=== PATIENT | male | born 1940 | race African-American/Black ===

== ENCOUNTER 2018-07-12 15:42 | Inpatient (IN) | payer MEDICARE, OTHER ==
[~2018-07-12] VITALS: Ht 185.4 cm; Wt 118.5 kg
[~2018-07-12 15:42] MED LIST: UNOBMED
--- NOTE | 2018-07-12 16:12 | Emergency Room Report ---
History of Present Illness General Chief Complaint: Multiple Trauma/Fall Source: Patient Present Illness HPI Patient presents after several falling episodes. This been going on for last 2 weeks. He hurt his left knee 2 weeks ago and has been wearing a brace but is had difficulty ambulating. The pain is severe in the knee. The last few days he's fallen and hit his head. He denies loss of consciousness. Generalized weakness. The patient had his thyroid removed 2 months ago. He says that he is taking thyroid medication. The patient's been incontinent of urine recently. He also complains of dysuria. He denies any fevers or chills. There's no chest pain, cough, shortness of breath, nausea or vomiting. The patient's been constipated and having difficulty moving his bowels. Allergies: Coded Allergies: No Known Allergies (Unverified , 07/12/18) Patient History Past Medical History: see triage record Social History: Denies: smoking Social History Narrative at home with sons Reviewed Nursing Documentation: PMH: Agreed; PSxH: Agreed Nursing Documentation-PMH Hx Cardiac Problems: Yes - THYROID REMOVAL 2YRS AGO Hx Hypertension: Yes Hx Diabetes: Yes Review of Systems All Other Systems: negative except mentioned in HPI Physical Exam Vital Signs Date Time Temp Pulse Resp B/P (MAP) Pulse Ox O2 Delivery O2 Flow Rate FiO2 07/12/18 15:38 98.8 90 18 156/76 99 Room Air Sp02 EP Interpretation: reviewed, normal General Appearance: no apparent distress, GCS 15, other - failry ill Head: normocephalic Eyes: bilateral eye normal inspection, bilateral eye PERRL ENT: moist mucus membranes Neck: supple, other - cannot feel thyroid Respiratory: lungs clear, normal breath sounds Cardiovascular #1: regular rate, rhythm Cardiovascular #2: 2+ radial (R) Gastrointestinal: normal inspection, normal bowel sounds, non tender, no mass, non-distended Musculoskeletal: back normal, swelling - tenderness L knee with small effusion and decreased ROM - TTP Neurologic: alert, oriented x3, DTRs symmetric, sensory intact, motor weakness - generalized Psychiatric: depressed affect Skin: normal inspection, warm/dry Medical Decision Making Diagnostic Impression: Primary Impression: Multiple injuries due to trauma Additional Impressions: Tibial plateau fracture Qualified Codes: S82.142A - Displaced bicondylar fracture of left tibia, initial encounter for closed fracture Hypothyroidism Qualified Codes: E03.9 - Hypothyroidism, unspecified Myxedema UTI (urinary tract infection) Qualified Codes: N39.0 - Urinary tract infection, site not specified Urinary incontinence Qualified Codes: R32 - Unspecified urinary incontinence ER Course Patient with multiple falls with generalized weakness and incontinence. DDX: bleed, UTI/sepsis, electrolyte abnormality, hypothyroidism, ID amongst others. In addition, c/o L knee pain from fall 2 weeks ago. DDx fx, contusion, sprain. CT head, knee x-rays, EKG and labs indicated. Treated with analgesic and gentle hydration. EKG without injury. CXR no infiltrates. Knee with tibial plateau fx. CBC elevated WBC. CMP essentially normal. Elevated CK. TFTs demonstrate hypothyroidism. UA pyuria. Antibiotics begun. Cortisol and levothyroxin given. Discussed findings with patient and family. Knee immobilizer applied by techs. Position excellent with improvement of sy and normal neurovasc as checked by me. Patient admitted to medical floor - Dr. Morgan. Orthopedic surgeon consulted. Laboratory Tests Test 07/12/18 15:51 07/12/18 16:47 07/12/18 17:41 07/12/18 17:49 Troponin I 0.000 ng/mL (0.000-0.056) White Blood Count 15.0 K/UL (4.8-10.8) H Red Blood Count 4.85 M/UL (4.70-6.10) Hemoglobin 14.0 G/DL (14.2-18.0) L Hematocrit 42.3 % (42.0-52.0) Mean Corpuscular Volume 87 FL (80-99) Mean Corpuscular Hemoglobin 28.8 PG (27.0-31.0) Mean Corpuscular Hemoglobin Concent 33.1 G/DL (32.0-36.0) Red Cell Distribution Width 11.9 % (11.6-14.8) Platelet Count 297 K/UL (150-450) Mean Platelet Volume 7.3 FL (6.5-10.1) Neutrophils (%) (Auto) 79.2 % (45.0-75.0) H Lymphocytes (%) (Auto) 14.5 % (20.0-45.0) L Monocytes (%) (Auto) 4.2 % (1.0-10.0) Eosinophils (%) (Auto) 0.9 % (0.0-3.0) Basophils (%) (Auto) 1.2 % (0.0-2.0) Erythrocyte Sedimentation Rate 67 MM/HR (0-20) H Prothrombin Time 11.3 SEC (9.30-11.50) Prothrombin Time INR 1.1 (0.9-1.1) PTT 24 SEC (23-33) Urine Color Yellow Urine Appearance Slightly cloudy Urine pH 5 (4.5-8.0) Urine Specific [place] 1.020 (1.005-1.035) Urine Protein 2+ (NEGATIVE) H Urine Glucose (UA) Negative (NEGATIVE) Urine Ketones Negative (NEGATIVE) Urine Blood 3+ (NEGATIVE) H Urine Nitrite Negative (NEGATIVE) Urine Bilirubin Negative (NEGATIVE) Urine Urobilinogen 1 MG/DL (0.0-1.0) H Urine Leukocyte Esterase 3+ (NEGATIVE) H Urine RBC 15-20 /HPF (0 - 0) H Urine WBC 40-60 /HPF (0 - 0) H Urine Squamous Epithelial Cells None /LPF (NONE/OCC) Urine Amorphous Sediment Moderate /LPF (NONE) H Urine Bacteria Moderate /HPF (NONE) H Urine Yeast Few /HPF (NONE) H Urine Opiates Screen Positive (NEGATIVE) H Urine Barbiturates Screen Negative (NEGATIVE) Phencyclidine (PCP) Screen Negative (NEGATIVE) Urine Amphetamines Screen Negative (NEGATIVE) Urine Benzodiazepines Screen Negative (NEGATIVE) Urine Cocaine Screen Negative (NEGATIVE) Urine Marijuana (THC) Screen Negative (NEGATIVE) Sodium Level 138 MMOL/L (136-145) Potassium Level 3.9 MMOL/L (3.5-5.1) Chloride Level 101 MMOL/L (98-107) Carbon Dioxide Level 26 MMOL/L (21-32) Anion Gap 12 mmol/L (5-15) Blood Urea Nitrogen 21 mg/dL (7-18) H Creatinine 1.1 MG/DL (0.55-1.30) Estimate Glomerular Filtration Rate mL/min (>60) Glucose Level 178 MG/DL (74-106) H Uric Acid 5.6 MG/DL (2.6-7.2) Calcium Level 9.3 MG/DL (8.5-10.1) Total Bilirubin 0.8 MG/DL (0.2-1.0) Aspartate Amino Transferase (AST) 37 U/L (15-37) Alanine Aminotransferase (ALT) 21 U/L (12-78) Alkaline Phosphatase 82 U/L (46-116) Total Creatine Kinase 595 U/L (26-308) H Pro-B-Type Natriuretic Peptide 193 pg/mL (0-125) H Total Protein 8.4 G/DL (6.4-8.2) H Albumin 2.7 G/DL (3.4-5.0) L Globulin 5.7 g/dL Albumin/Globulin Ratio 0.5 (1.0-2.7) L Lipase 113 U/L (73-393) Thyroid Stimulating Hormone (TSH) 9.675 uiU/mL (0.358-3.740) Free Thyroxine 0.49 NG/DL (0.76-1.46) L Free Triiodothyronine 0.8 pg/mL (2.3-4.2) L EKG Diagnostic Results Rate: normal Rhythm: NSR ST Segments: no acute changes Rhythm Strip Diag. Results EP Interpretation: yes Rhythm: NSR, no PVC's, no ectopy Chest X-Ray Diagnostic Results Chest X-Ray Diagnostic Results : Chest X-Ray Ordered: Yes # of Views/Limited/Complete: 1 View Indication: Other EP Interpretation: Yes Interpretation: no consolidation, no effusion, no pneumothorax, other - inc cor Impression: Other Electronically Signed by: Electronically signed by Bartolo Waggoner MD Other X-Ray Diagnostic Results Other X-Ray Diagnostic Results : X-Ray ordered: L knee # of Views/Limited Vs Complete: 3 View Indication: Pain Interpretation: no dislocation, no soft tissue swelling, other - djd and tibial plateau fx Impression: Other Electronically Signed by: Electronically signed by Bartolo Waggoner MD CT/MRI/US Diagnostic Results CT/MRI/US Diagnostic Results : Imaging Test Ordered: head Impression chronic age related changes Status: improved Disposition: ADMITTED INPATIENT Condition: Serious Bartolo Waggoner MD Jul 12, 2018 16:12
[2018-07-12] MEDS ORDERED: Morphine Sulfate 4mg/ml Inj (IV/IM USE ONLY) IVP ONE (16:15)
[2018-07-12 16:41] VITALS: BP 113/89
[2018-07-12 17:10] LABS: BASOPHILS % (AUTO) 1.2 % (0.0-2.0); EOSINOPHILS % (AUTO) 0.9 % (0.0-3.0); HEMATOCRIT 42.3 % (42.0-52.0); LYMPHOCYTES % (AUTO) 14.5 % (20.0-45.0); MEAN CORPUSCULAR VOLUME 87 FL (80-99); MONOCYTES % (AUTO) 4.2 % (1.0-10.0); NEUTROPHILS % (AUTO) 79.2 % (45.0-75.0); PLATELET COUNT 297 K/UL (150-450); RED BLOOD COUNT 4.85 M/UL (4.70-6.10); RED CELL DISTRIBUTION WIDTH 11.9 % (11.6-14.8)
[2018-07-12 17:15] LABS: INR 1.1 (0.9-1.1)
--- NOTE | 2018-07-12 17:20 | Diagnostic Imaging Report ---
Indication: Head pain after several falling episodes Technique: spiral acquisitions obtained through the brain. Angled axial and coronal 5 x 5 mm slices were reconstructed. No IV contrast utilized. Radiation dose was minimized using automated exposure control Total dose length product 1513.32 mGycm. CTDIvol(s) 70.38 mGy Comparison: none FINDINGS: No acute hemorrhage or edema. No mass effect or midline shift. There is age-related enlargement of the ventricles and extra axial CSF spaces. There is periventricular deep white matter ischemic change. Normal gustafson-white differentiation. There is evidence of prior bilateral cataract surgery. Visualized sinuses are unremarkable. Intact calvarium. IMPRESSION: Chronic and age-related changes. Negative for acute intracranial bleed or mass effect The CT scanner at [facility] is accredited by the [employer] and the scans are performed using protocols designed to limit radiation exposure to as low as reasonably achievable to attain images of sufficient resolution adequate for diagnostic evaluation
--- NOTE | 2018-07-12 17:46 | Diagnostic Imaging Report ---
Indication: Chest pain Technique: One view of the chest Comparison: none Findings: Body habitus limits evaluation. There is equivocal minimal interstitial congestion. The pleural spaces are clear. The heart is borderline enlarged. There are degenerative changes of the stomach thoracic spine Impression: Cardiomegaly with equivocal minimal interstitial congestion. Correlate with clinical findings
--- NOTE | 2018-07-12 17:49 | Diagnostic Imaging Report ---
Indication: Pain, trauma Technique: 3 views of the left knee Comparison: None Findings: Lucency seen through the medial tibial plateau, probably not a fracture but this cannot be completely ruled out. There is mild degenerative joint space narrowing of the lateral compartment, considerable degenerative remodeling of both joint compartments as well as of the patellofemoral joint compartment. There is a small suprapatellar effusion. Traction osteophytes are seen in the patella. Impression: Doubt but cannot completely exclude medial tibial plateau fracture. No acute bony trauma otherwise Joint effusion Findings discussed by phone with Dr. Waggoner in the emergency room at the time of interpretation Marked degenerative change, as described Findings discussed by phone with Dr. Waggoner in the emergency room at the time of interpretation
[2018-07-12 18:07] LABS: ANION GAP 12 mmol/L (5-15); BLOOD UREA NITROGEN 21 mg/dL (7-18); CALCIUM 9.3 MG/DL (8.5-10.1); CARBON DIOXIDE 26 MMOL/L (21-32); CHLORIDE 101 MMOL/L (98-107); CREATININE 1.1 MG/DL (0.55-1.30); POTASSIUM 3.9 MMOL/L (3.5-5.1); SODIUM 138 MMOL/L (136-145)
[2018-07-12 18:08] LABS: APPEARANCE,URINE SLIGHTLY CLOUDY; BILIRUBIN, URINE NEGATIVE (NEGATIVE); GLUCOSE, URINE (UA) NEGATIVE (NEGATIVE); KETONES,URINE NEGATIVE (NEGATIVE); LEUKOCYTE ESTERASE ,URINE 3+ (NEGATIVE); NITRITE,URINE NEGATIVE (NEGATIVE); PH,URINE 5 (4.5-8.0); PROTEIN,URINE 2+ (NEGATIVE); UROBILINOGEN,URINE 1 MG/DL (0.0-1.0)
[2018-07-12 18:09] LABS: COLOR,URINE YELLOW
[2018-07-12 18:23] LABS: ALANINE AMINOTRANSFERASE 21 U/L (12-78); ALBUMIN 2.7 G/DL (3.4-5.0); ALBUMIN/GLOBULIN RATIO 0.5 (1.0-2.7); ALKALINE PHOSPHATASE 82 U/L (46-116); ASPARTATE AMINO TRANSFERASE 37 U/L (15-37); BILIRUBIN,TOTAL 0.8 MG/DL (0.2-1.0); CREATINE KINASE 595 U/L (26-308)
[2018-07-12] MEDS ORDERED: cefTRIAXone 1 GM in D5W 55 ML IVPB ONE (18:30)
[2018-07-12] MEDS ORDERED: Levothyroxine 25mcg tab ORAL STA (19:23)
[2018-07-12] MEDS ORDERED: Hydrocortisone 100mg Inj IV ONE (19:30)
[2018-07-12 20:33] VITALS: BP 137/62
[2018-07-12] MEDS ORDERED: Norco 5mg/325mg tab ORAL PRN ×2 (22:00)
[2018-07-13] VITALS: BP 148/79
[2018-07-13 04:00] VITALS: BP 140/77
[2018-07-13] MEDS: NovoLOG Insulin Flexpen SUBQ SCH ×4 (06:48→21:00)
[2018-07-13 08:00] VITALS: BP 140/83
[2018-07-13] MEDS: Pantoprazole Inj IVP SCH (09:30)
[2018-07-13 12:00] VITALS: BP 142/64
--- NOTE | 2018-07-13 15:01 | Cardiology Report ---
APPROVED REPORT EKG Measurement Heart [id number] [place] [id number] Normal sinus rhythm Left axis deviation Right bundle branch block Abnormal ECG
--- NOTE | 2018-07-13 15:04 | Cardiology Report ---
APPROVED REPORT EKG Measurement Heart [id number] [place] [id number] Normal sinus rhythm Left axis deviation Right bundle branch block Cannot rule out Inferior infarct, age undetermined Abnormal ECG
[2018-07-13 15:44] VITALS: BP 139/76
--- NOTE | 2018-07-13 17:32 | History and Physical Report ---
DATE OF ADMISSION: 07/12/2018 REASON FOR ADMISSION: Status post fall, fracture. HISTORY: This is a 78-year-old male, who has had multiple falls in the past two weeks. The patient did have an injury to his left knee, was wearing a brace, difficulty ambulating. The patient had another fall and he suffered a left tibial plateau fracture, the patient admitted. The patient notes some urinary incontinence. The patient overall was stable, alert, oriented, and comfortable in bed. PAST MEDICAL HISTORY: Notable for thyroid surgery, hypertension, diabetes, multiple falls, now with tibial plateau fracture. PHYSICAL EXAMINATION: GENERAL: A well-developed male, comfortable at present, no significant distress. VITAL SIGNS: The patient's vital signs reviewed and otherwise stable. Blood pressure 140/83, pulse 74, respiratory rate 19, and temperature 98.5. HEENT: Negative. NECK: Supple. LUNGS: Fairly clear and symmetric. CARDIAC: Normal S1 and S2. Regular rate and rhythm. ABDOMEN: Overall soft, nontender, nondistended. EXTREMITIES: No cyanosis or clubbing. The patient's left knee with brace in place. LABORATORY AND DIAGNOSTIC DATA: The laboratory data otherwise reviewed. X-rays revealed possible medial tibial plateau fracture of the left leg. Laboratory data notable for white cell count of 15, BUN 21. Liver enzymes are slightly elevated. Thyroid function is somewhat abnormal. IMPRESSION: 1. Status post fall, possible tibial plateau fracture, left knee injury. 2. Evidence of elevated CK with mild azotemia. 3. Protein-calorie malnutrition. 4. Hypothyroidism. RECOMMENDATIONS: Supportive care. Resume home medications. Pain control. Physical therapy evaluation. Consider empiric antibiotics. Hydration and IV fluids. Follow up laboratories and recommend further follow up CT and await further orthopedic evaluation and recommendations for discharge planning. Tu Morgan M.D. DR: KINA JOB#: [id number] CC: NARGIS
[2018-07-13 20:00] VITALS: BP 122/64
[2018-07-13] MEDS: Zolpidem 5mg tab ORAL PRN (20:58)
[2018-07-13] MEDS: Milk of Magnesia 30ml Ud ORAL PRN (20:58)
[2018-07-14] VITALS (7 sets, daily range): BP systolic 132–162; BP diastolic 71–87
[2018-07-14] MEDS: NovoLOG Insulin Flexpen SUBQ SCH ×4 (06:55→21:12)
[2018-07-14] MEDS: Milk of Magnesia 30ml Ud ORAL PRN (08:21)
[2018-07-14] MEDS: Pantoprazole Inj IVP SCH (08:21)
--- NOTE | 2018-07-14 10:11 | General Progress Note ---
Assessment/Plan Assessment/Plan IMPRESSION: 1. Status post fall, possible tibial plateau fracture, left knee injury. 2. Evidence of elevated CK with mild azotemia. 3. Protein-calorie malnutrition. 4. Hypothyroidism. PLAN await ortho PT pending heparin sq bid maintain meds and pain control impression, plan, and exam edited and reviewed in detail care discussed with RN Subjective Allergies: Coded Allergies: No Known Allergies (Unverified , 07/12/18) Subjective comfortable d/w ortho Objective Last 24 Hour Vital Signs Date Time Temp Pulse Resp B/P (MAP) Pulse Ox O2 Delivery O2 Flow Rate FiO2 07/14/18 09:00 Room Air 07/14/18 08:00 98.8 84 18 146/77 (100) 100 07/14/18 04:43 98.6 76 18 146/78 (100) 96 07/13/18 21:00 Room Air 07/13/18 20:00 98.9 73 18 122/64 (83) 96 07/13/18 15:44 98.3 78 19 139/76 (97) 97 07/13/18 12:00 98.2 71 20 142/64 (90) 98 Intake and Output 07/13/18 07/14/18 19:00 07:00 Intake Total 1256 ml 1210 ml Output Total 400 ml 1700 ml Balance 856 ml -490 ml Intake Oral 456 ml 360 ml IV Total 800 ml 850 ml Output Urine Total 400 ml 1700 ml # Voids 2 Labs Test 07/12/18 15:51 07/12/18 16:47 07/12/18 17:41 07/12/18 17:49 Troponin I 0.000 ng/mL (0.000-0.056) White Blood Count 15.0 K/UL (4.8-10.8) Red Blood Count 4.85 M/UL (4.70-6.10) Hemoglobin 14.0 G/DL (14.2-18.0) Hematocrit 42.3 % (42.0-52.0) Mean Corpuscular Volume 87 FL (80-99) Mean Corpuscular Hemoglobin 28.8 PG (27.0-31.0) Mean Corpuscular Hemoglobin Concent 33.1 G/DL (32.0-36.0) Red Cell Distribution Width 11.9 % (11.6-14.8) Platelet Count 297 K/UL (150-450) Mean Platelet Volume 7.3 FL (6.5-10.1) Neutrophils (%) (Auto) 79.2 % (45.0-75.0) Lymphocytes (%) (Auto) 14.5 % (20.0-45.0) Monocytes (%) (Auto) 4.2 % (1.0-10.0) Eosinophils (%) (Auto) 0.9 % (0.0-3.0) Basophils (%) (Auto) 1.2 % (0.0-2.0) Erythrocyte Sedimentation Rate 67 MM/HR (0-20) Prothrombin Time 11.3 SEC (9.30-11.50) Prothromb Time International Ratio 1.1 (0.9-1.1) Activated Partial Thromboplast Time 24 SEC (23-33) Urine Color Yellow Urine Appearance Slightly cloudy Urine pH 5 (4.5-8.0) Urine Specific [place] 1.020 (1.005-1.035) Urine Protein 2+ (NEGATIVE) Urine Glucose (UA) Negative (NEGATIVE) Urine Ketones Negative (NEGATIVE) Urine Blood 3+ (NEGATIVE) Urine Nitrite Negative (NEGATIVE) Urine Bilirubin Negative (NEGATIVE) Urine Urobilinogen 1 MG/DL (0.0-1.0) Urine Leukocyte Esterase 3+ (NEGATIVE) Urine RBC 15-20 /HPF (0 - 0) Urine WBC 40-60 /HPF (0 - 0) Urine Squamous Epithelial Cells None /LPF (NONE/OCC) Urine Amorphous Sediment Moderate /LPF (NONE) Urine Bacteria Moderate /HPF (NONE) Urine Yeast Few /HPF (NONE) Urine Opiates Screen Positive (NEGATIVE) Urine Barbiturates Screen Negative (NEGATIVE) Phencyclidine (PCP) Screen Negative (NEGATIVE) Urine Amphetamines Screen Negative (NEGATIVE) Urine Benzodiazepines Screen Negative (NEGATIVE) Urine Cocaine Screen Negative (NEGATIVE) Urine Marijuana (THC) Screen Negative (NEGATIVE) Sodium Level 138 MMOL/L (136-145) Potassium Level 3.9 MMOL/L (3.5-5.1) Chloride Level 101 MMOL/L (98-107) Carbon Dioxide Level 26 MMOL/L (21-32) Anion Gap 12 mmol/L (5-15) Blood Urea Nitrogen 21 mg/dL (7-18) Creatinine 1.1 MG/DL (0.55-1.30) Estimat Glomerular Filtration Rate mL/min (>60) Glucose Level 178 MG/DL (74-106) Uric Acid 5.6 MG/DL (2.6-7.2) Calcium Level 9.3 MG/DL (8.5-10.1) Total Bilirubin 0.8 MG/DL (0.2-1.0) Aspartate Amino Transf (AST/SGOT) 37 U/L (15-37) Alanine Aminotransferase (ALT/SGPT) 21 U/L (12-78) Alkaline Phosphatase 82 U/L (46-116) Total Creatine Kinase 595 U/L (26-308) Pro-B-Type Natriuretic Peptide 193 pg/mL (0-125) Total Protein 8.4 G/DL (6.4-8.2) Albumin 2.7 G/DL (3.4-5.0) Globulin 5.7 g/dL Albumin/Globulin Ratio 0.5 (1.0-2.7) Lipase 113 U/L (73-393) Thyroid Stimulating Hormone (TSH) 9.675 uiU/mL (0.358-3.740) Free Thyroxine 0.49 NG/DL (0.76-1.46) Free Triiodothyronine 0.8 pg/mL (2.3-4.2) Test 07/13/18 06:17 Hemoglobin A1c 7.4 % (4.3-6.0) Height (Feet): 6 Height (Inches): 1.00 Weight (Pounds): 261 Objective GENERAL: A well-developed male, comfortable at present, no significant distress. HEENT: Negative. NECK: Supple. LUNGS: Fairly clear and symmetric. CARDIAC: Normal S1 and S2. Regular rate and rhythm. ABDOMEN: Overall soft, nontender, nondistended. EXTREMITIES: No cyanosis or clubbing. The patient's left knee with brace in place. Tu Morgan MD Jul 14, 2018 10:11
[2018-07-14] MEDS ORDERED: 1/2 NS 1000ml IV ONE ×2 (16:06→16:56)
[2018-07-14] MEDS: Heparin 5000 units/ml inj SUBQ SCH (21:02)
--- NOTE | 2018-07-14 21:30 | Consultation ---
DATE OF CONSULTATION: 07/14/2018 ORTHOPEDIC CONSULTATION CONSULTING PHYSICIAN: Bartolo Mcclendon M.D. REQUESTING PHYSICIAN: Tu Morgan M.D. DIAGNOSIS: Left proximal tibial plateau nondisplaced fracture. HISTORY: A 78-year-old gentleman with multiple falls, who has had multiple injuries to both knees. He recently slipped and fell and was found to have a small nondisplaced medial proximal tibial plateau fracture. He was admitted for multiple medical reasons. PAST MEDICAL HISTORY: Significant for hypertension, diabetes, hypothyroidism, status post thyroidectomy, and multiple falls. REVIEW OF SYSTEMS: A 12-point review of systems is negative. PHYSICAL EXAMINATION: He is well appearing, in no distress. Left lower extremity is in an immobilizer. Distal neurovascular examination to gross movements intact. Immobilizer was loosened and all compartments were palpably soft. There are no open wounds. DIAGNOSTIC DATA: Radiographs of left tibia reveal a small nondisplaced medial tibial plateau fracture with no significant compression or depression. ASSESSMENT AND PLAN: This is a 78-year-old gentleman with a left proximal tibia fracture. I have recommended nonoperative treatment. Strict nonweightbearing is recommended. He should be in an immobilizer for comfort and protection, which can be removed for hygiene purposes and to sit for rest comfortably. DVT prophylaxis should be maintained while he is bed ridden, if it is for any prolonged period of time. He is welcome to follow up in the office. Thank you for the opportunity to consult. Bartolo Mcclendon M.D. DR: LUCERO JOB#: [id number] CC:
[2018-07-15] VITALS: BP 143/78
[2018-07-15] MEDS: Zolpidem 5mg tab ORAL PRN (00:22)
[2018-07-15 04:00] VITALS: BP 158/86
[2018-07-15] MEDS: NovoLOG Insulin Flexpen SUBQ SCH ×3 (05:37→16:35)
[2018-07-15] MEDS ORDERED: Levothyroxine 125mcg tab ORAL SCH (06:30)
[2018-07-15 08:00] VITALS: BP 134/58
--- NOTE | 2018-07-15 08:31 | General Progress Note ---
Assessment/Plan Assessment/Plan IMPRESSION: 1. Status post fall, possible tibial plateau fracture, left knee injury. 2. Evidence of elevated CK with mild azotemia. 3. Protein-calorie malnutrition. 4. Hypothyroidism. PLAN NWB status PT heparin sq bid maintain meds and pain control will need rehab impression, plan, and exam edited and reviewed in detail care discussed with RN Subjective Allergies: Coded Allergies: No Known Allergies (Unverified , 07/12/18) Subjective comfortable ortho noted-no surgery and nonweightbearing status Objective Last 24 Hour Vital Signs Date Time Temp Pulse Resp B/P (MAP) Pulse Ox O2 Delivery O2 Flow Rate FiO2 07/15/18 04:00 99.3 75 18 158/86 (110) 97 07/15/18 00:00 99.3 70 18 143/78 (99) 96 07/14/18 21:00 Room Air 07/14/18 20:00 98.4 72 18 156/84 (108) 97 07/14/18 17:32 99.2 07/14/18 17:09 99.8 07/14/18 16:11 100.3 07/14/18 16:00 100.3 85 18 132/87 (102) 96 07/14/18 15:30 100.5 07/14/18 12:00 99.3 76 18 146/71 (96) 100 07/14/18 10:17 Room Air 07/14/18 09:00 Room Air Intake and Output 07/14/18 07/15/18 19:00 07:00 Intake Total 1520 ml 1400 ml Output Total 2300 ml 1450 ml Balance -780 ml -50 ml Intake Oral 300 ml 300 ml IV Total 1100 ml 1100 ml Other 120 ml Output Urine Total 2300 ml 1450 ml # Bowel Movements 3 Height (Feet): 6 Height (Inches): 1.00 Weight (Pounds): 261 Objective GENERAL: A well-developed male, comfortable at present, no significant distress. HEENT: Negative. NECK: Supple. LUNGS: Fairly clear and symmetric. CARDIAC: Normal S1 and S2. Regular rate and rhythm. ABDOMEN: Overall soft, nontender, nondistended. EXTREMITIES: No cyanosis or clubbing. The patient's left knee with brace in place. Tu Morgan MD Jul 15, 2018 08:31
[2018-07-15] MEDS: Pantoprazole Inj IVP SCH ×2 (09:00→09:16)
[2018-07-15] MEDS: Heparin 5000 units/ml inj SUBQ SCH (09:17)
[2018-07-15 12:00] VITALS: BP 132/80
[2018-07-15] MEDS ORDERED: ZOLPIDEM TARTRAT5 MG ORAL (14:26)
[2018-07-15] MEDS ORDERED: LEVOTHYROXINE125 MCG ORAL (14:30)
[2018-07-15] MEDS ORDERED: MILK OF MA400 MG/51 ORAL (14:30)
[2018-07-15] MEDS ORDERED: NORCO 5-325 TA1 EACH ORAL ×2 (14:38→14:39)
[2018-07-15] MEDS ORDERED: HEPARIN SO5000 UNIT2 SUBQ (14:40)
[2018-07-15] MEDS ORDERED: MYLANTA II30 ML PO (14:42)
[2018-07-15] MEDS ORDERED: ACETAMINOPHEN325 M1 ORAL (14:43)
[2018-07-15] MEDS ORDERED: NOVOLOG100 UNIT/3 SUBQ (14:45)
[2018-07-15 16:00] VITALS: BP 137/84
[2018-07-15] MEDS ORDERED: 1/2 NS 1000ml IV ONE (16:09)
[2018-07-15 20:00] VITALS: BP 158/83
--- NOTE | 2018-07-16 09:49 | Discharge Summary ---
Discharge Summary Discharge Summary _ DATE OF ADMISSION: 07/12/2018 DATE OF DISCHARGE: 07/15/2018 CONSULTANTS: Dr. Bartolo Mcclendon [facility] COURSE: Patient is a 78-year-old male, who had multiple falls in the past 2 weeks. Patient had an injury to his left knee, and was wearing a brace and had difficulty ambulating. The patient had another fall. He has medical history significant for hypertension, diabetes, prior thyroid surgery and now with multiple falls and tibial plateau fracture. On evaluation at ED, blood work showed elevated WBC to 15. Hemoglobin and hematocrit are stable. CMP was essentially normal. He had elevated CK. Urinalysis showed 2+ protein, 3+ leukocyte esterase, 15-20 RBC and 40-60 WBC. Urine toxicology was positive for opiates. Thyroid was elevated to 9. He had a chest x-ray that showed cardiomegaly with equivocal minimal interstitial congestion. Head CT with chronic age-related changes no acute intracranial bleed or mass effect. He was started on antibiotics and was given cortisol and levothyroxine. Left knee x-ray showed possible medial tibial plateau fracture. He was placed on knee immobilizer. He was then admitted for evaluation of knee pain. He was given IV hydration. He was given pain management. He was placed on subcutaneous injections twice a day. Orthopedic surgeon was consulted. Distal neurovascular examination showed gross movements intact. Radiographs were reviewed. Patient has a left tibial small nondisplaced medial tibial plateau fracture with no significant compression or decompression. He was recommended nonoperative treatment and was advised strict nonweightbearing. He was advised to be in a immobilizer for comfort and protection, can be removed for hygiene purposes and to sit for rest comfortably. He was advised to follow-up as outpatient. He was given PT and OT. He was eventually discharged to a rehabilitation center. FINAL DIAGNOSES: Status post fall with left tibial non-displaced fracture Evidence of CK with mild azotemia Protein calorie malnutrition Hypothyroidism DISPOSITION: Patient was discharged to Rehabilitation Center on . DISCHARGE MEDICATIONS: Refer to Discharge Medication List. I have been assigned to dictate discharge summary on this account, and I was not involved in the patient's management. Yolis Rosales NP Jul 16, 2018 09:49
== END 2018-07-15 20:25 | disposition short-term general hospital (02) | DRG 563 ==
LOC: EDBD 15:42 → EMR 16:14 → 3E 16:58 → EDBEDREQ 17:18
DX: S82.145A Nondisplaced bicondylar fracture of left tibia, initial encounter for closed fracture (principal); E46 Unspecified protein-calorie malnutrition; W01.0XXA Fall on same level from slipping, tripping and stumbling without subsequent striking against object, initial encounter; R29.6 Repeated falls; S89.92XD Unspecified injury of left lower leg, subsequent encounter; I10 Essential (primary) hypertension; E11.9 Type 2 diabetes mellitus without complications; E89.0 Postprocedural hypothyroidism
CPT/HCPCS: 36415; 70450; 71045; 80053; 80307; 81003; 82550; 82962; 83036; 83690; 83880; 84439; 84443; 84481; 84484; 84550; 85025; 85610; 85651; 85730; 87086; 87181; 93005; 96361; 96365; 96375; 99285; J1815; J2405

== ENCOUNTER 2020-06-18 11:46 | Inpatient (IN) | payer MEDICARE, OTHER ==
[~2020-06-18] VITALS: Ht 184.9 cm; Wt 108.0 kg
[~2020-06-18 11:46] MED LIST changes: +ACETAMINOPHEN325 M1 ORAL; +HEPARIN SO5000 UNIT2 SUBQ; +LEVOTHYROXINE125 MCG ORAL; +MILK OF MA400 MG/51 ORAL; +MYLANTA II30 ML PO; +NORCO 5-325 TA1 EACH ORAL; +NOVOLOG100 UNIT/3 SUBQ; +ZOLPIDEM TARTRAT5 MG ORAL
[2020-06-18] MEDS ORDERED: FLUOXETINE HCL10 M2 ORAL (11:59)
[2020-06-18] MEDS ORDERED: GABAPENTIN400 MG ORAL (11:59)
[2020-06-18] MEDS ORDERED: ASPIRIN81 MG ORAL (11:59)
[2020-06-18] MEDS ORDERED: LANTUS SOL100 UNIT/1 SUBQ (11:59)
[2020-06-18] MEDS ORDERED: ATORVASTATIN CA80 MG ORAL (11:59)
[2020-06-18] MEDS ORDERED: MULTI COMPLETE1 EACH PO (11:59)
[2020-06-18] MEDS ORDERED: VITAMIN C500 M1 ORAL (11:59)
[2020-06-18 12:00] VITALS: BP 113/66
[2020-06-18] MEDS ORDERED: Pantoprazole Inj IV ONE (12:15)
[2020-06-18 12:31] LABS: BASOPHILS % (AUTO) 1.5 % (0.0-2.0); EOSINOPHILS % (AUTO) 4.6 % (0.0-3.0); HEMATOCRIT 36.5 % (42.0-52.0); HEMOGLOBIN 12.2 G/DL (14.2-18.0); LYMPHOCYTES % (AUTO) 23.9 % (20.0-45.0); MEAN CORPUSCULAR VOLUME 85 FL (80-99); MONOCYTES % (AUTO) 5.3 % (1.0-10.0); NEUTROPHILS % (AUTO) 64.7 % (45.0-75.0); PLATELET COUNT 263 K/UL (150-450); RED BLOOD COUNT 4.29 M/UL (4.70-6.10); RED CELL DISTRIBUTION WIDTH 13.2 % (11.6-14.8); WHITE BLOOD COUNT 12.5 K/UL (4.8-10.8)
[2020-06-18 12:42] LABS: INR 1.1 (0.9-1.1)
[2020-06-18 12:44] LABS: ANION GAP 10 mmol/L (5-15); BLOOD UREA NITROGEN 28 mg/dL (7-18); CALCIUM 8.6 MG/DL (8.5-10.1); CARBON DIOXIDE 26 MMOL/L (21-32); CHLORIDE 106 MMOL/L (98-107); CREATININE 1.2 MG/DL (0.55-1.30); POTASSIUM 4.5 MMOL/L (3.5-5.1); SODIUM 142 MMOL/L (136-145)
[2020-06-18 12:49] LABS: ALANINE AMINOTRANSFERASE 33 U/L (12-78); ALBUMIN/GLOBULIN RATIO 1.1 (1.0-2.7); ALKALINE PHOSPHATASE 95 U/L (46-116); ASPARTATE AMINO TRANSFERASE 24 U/L (15-37); BILIRUBIN,TOTAL 0.8 MG/DL (0.2-1.0)
[2020-06-18] MEDS ORDERED: Nitroglycerin Subl 0.4mg tab SL PRN (13:00)
[2020-06-18] MEDS ORDERED: Miralax 17gm pkt ORAL PRN (13:00)
--- NOTE | 2020-06-18 13:04 | Consultation ---
History of Present Illness General Date patient seen: Jun 18, 2020 Chief Complaint: General Complaint Present Illness HPI 80-year-old male with hx of DM, HTN, presented to ED for evaluation of rectal bleeding noted by nursing staff today. Per nursing there is bright red blood. Patient denies any pain. Denies taking any blood thinners. Denies nausea or vomiting. Pt is admitted for further management. Allergies: Coded Allergies: No Known Allergies (Unverified , 07/12/18) Medication History Scheduled Ascorbic Acid* (Vitamin C*), 500 MG ORAL DAILY, (Reported) Aspirin* (Aspirin*), 81 MG ORAL DAILY, (Reported) Atorvastatin Calcium* (Lipitor*), 80 MG ORAL BEDTIME, (Reported) Fluoxetine Hcl* (Fluoxetine Hcl*), 40 MG ORAL DAILY, (Reported) Gabapentin* (Gabapentin*), 1,200 MG ORAL TWICE A DAY, (Reported) Heparin Sod (Porcine) (Heparin Sodium*), 5,000 UNITS SUBQ EVERY 12 HOURS, (Reported) Insulin Aspart* (Novolog*), 0 SUBQ AC+HS, (Reported) Insulin Glargine (Lantus), 10 SUBQ DAILY, (Reported) Levothyroxine Sodium* (Levothyroxine Sodium*), 125 MCG ORAL DAILY, (Reported) Scheduled PRN Acetaminophen* (Acetaminophen 325MG Tablet*), 650 MG ORAL Q4H PRN for Mild Pain/Temp > 100.5, (Reported) Al Hydroxide/mg Hydroxide (Mag-Al Plus Suspension), 30 ML PO Q4HR PRN for STOMACH UPSET, (Reported) Hydrocodone Bit/Acetaminophen 5-325* ([place] 5-325*), 1 TAB ORAL Q4H PRN for Moderate Pain (Pain Scale 4-6), (Reported) Hydrocodone Bit/Acetaminophen 5-325* ([place] 5-325*), 2 TAB ORAL Q4H PRN for Severe Pain (Pain Scale 7-10), (Reported) Magnesium Hydroxide* (Milk Of Magnesia*), 30 ML ORAL DAILY PRN for Constipation, (Reported) Zolpidem Tartrate* (Zolpidem Tartrate*), 5 MG ORAL BEDTIME PRN for Insomnia, (Reported) Miscellaneous Medications Multivitamin/Iron/Folic Acid (Multi Complete-Iron Tablet), 1 EACH PO, (Reported) Unable to Obtain Medications (Unable To Obtain Meds), (Reported) Patient History Healthcare decision maker Resuscitation status Advanced Directive on File Past Medical/Surgical History Past Medical/Surgical History: (1) Hx of essential hypertension (2) History of diabetes mellitus Review of Systems All Other Systems: negative except mentioned in HPI Physical Exam General Appearance: WD/WN, no apparent distress Lines, tubes and drains: peripheral HEENT: normocephalic, atraumatic Neck: non-tender, normal alignment Respiratory/Chest: chest wall non-tender, lungs clear, normal breath sounds Cardiovascular/Chest: normal peripheral pulses, normal rate Abdomen: normal bowel sounds, soft Genitourinary/Rectal: normal genital exam Extremities: normal range of motion Skin Exam: normal pigmentation 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 Last 24 Hour Vital Signs Date Time Temp Pulse Resp B/P (MAP) Pulse Ox O2 Delivery O2 Flow Rate FiO2 06/18/20 11:45 98.1 70 18 113/66 (82) 99 Room Air Laboratory Tests Test 06/18/20 12:20 White Blood Count 12.5 K/UL (4.8-10.8) H Red Blood Count 4.29 M/UL (4.70-6.10) L Hemoglobin 12.2 G/DL (14.2-18.0) L Hematocrit 36.5 % (42.0-52.0) L Mean Corpuscular Volume 85 FL (80-99) Mean Corpuscular Hemoglobin 28.3 PG (27.0-31.0) Mean Corpuscular Hemoglobin Concent 33.3 G/DL (32.0-36.0) Red Cell Distribution Width 13.2 % (11.6-14.8) Platelet Count 263 K/UL (150-450) Mean Platelet Volume 6.7 FL (6.5-10.1) Neutrophils (%) (Auto) 64.7 % (45.0-75.0) Lymphocytes (%) (Auto) 23.9 % (20.0-45.0) Monocytes (%) (Auto) 5.3 % (1.0-10.0) Eosinophils (%) (Auto) 4.6 % (0.0-3.0) H Basophils (%) (Auto) 1.5 % (0.0-2.0) Prothrombin Time 12.2 SEC (9.30-11.50) H Prothromb Time International Ratio 1.1 (0.9-1.1) Activated Partial Thromboplast Time 25 SEC (23-33) Sodium Level 142 MMOL/L (136-145) Potassium Level 4.5 MMOL/L (3.5-5.1) Chloride Level 106 MMOL/L (98-107) Carbon Dioxide Level 26 MMOL/L (21-32) Anion Gap 10 mmol/L (5-15) Blood Urea Nitrogen 28 mg/dL (7-18) H Creatinine 1.2 MG/DL (0.55-1.30) Estimat Glomerular Filtration Rate > 60 mL/min (>60) Glucose Level 173 MG/DL (74-106) H Calcium Level 8.6 MG/DL (8.5-10.1) Total Bilirubin 0.8 MG/DL (0.2-1.0) Aspartate Amino Transf (AST/SGOT) 24 U/L (15-37) Alanine Aminotransferase (ALT/SGPT) 33 U/L (12-78) Alkaline Phosphatase 95 U/L (46-116) Total Protein 5.8 G/DL (6.4-8.2) L Albumin 3.0 G/DL (3.4-5.0) L Globulin 2.8 g/dL Albumin/Globulin Ratio 1.1 (1.0-2.7) Lipase 86 U/L (73-393) Height (Feet): 6 Height (Inches): 2.00 Weight (Pounds): 195 Medications Current Medications Medications (Trade) Dose Ordered Sig/Amanda Route PRN Reason Start Time Stop Time Status Last Admin Dose Admin Acetaminophen (Tylenol) 650 mg Q4H PRN ORAL fever 06/18/20 13:00 07/18/20 12:59 Dextrose (Dextrose 50%) 25 ml Q30M PRN IV Hypoglycemia 06/18/20 13:00 09/16/20 12:59 Dextrose (Dextrose 50%) 50 ml Q30M PRN IV Hypoglycemia 06/18/20 13:00 09/16/20 12:59 Dextrose/Sodium Chloride 1,000 ml @ 75 mls/hr [id number] IV 06/18/20 13:00 07/18/20 12:59 Diphenhydramine HCl (Benadryl) 25 mg Q6H PRN ORAL Itching/Pruritis 06/18/20 13:00 07/18/20 12:59 Fluoxetine HCl (PROzac) 40 mg DAILY ORAL 06/19/20 09:00 07/19/20 08:59 UNV Insulin Aspart (NovoLOG) BEFORE MEALS AND HS SUBQ 06/18/20 16:30 09/16/20 16:29 UNV Levothyroxine Sodium (Synthroid) 125 mcg DAILY ORAL 06/19/20 09:00 07/19/20 08:59 UNV Nitroglycerin (Ntg) 0.4 mg Q5M X 3 DOSES PRN SL Prn Chest Pain 06/18/20 13:00 07/18/20 12:59 Ondansetron HCl (Zofran) 4 mg Q6H PRN IVP Nausea & Vomiting 06/18/20 13:00 07/18/20 12:59 Polyethylene Glycol (Miralax) 17 gm HSPRN PRN ORAL Constipation 06/18/20 13:00 07/18/20 12:59 UNV Sodium Chloride 1,000 ml @ 999 mls/hr Q1H1M ONCE IV 06/18/20 12:15 06/18/20 13:15 06/18/20 12:21 Temazepam (Restoril) 15 mg HSPRN PRN ORAL Insomnia 06/18/20 13:00 06/25/20 12:59 UNV Assessment/Plan Problem List: (1) Rectal bleeding ICD Codes: K62.5 - Hemorrhage of anus and rectum SNOMED: 26037403 (2) History of diabetes mellitus ICD Codes: Z86.39 - Personal history of other endocrine, nutritional and metabolic disease SNOMED: 714985857 (3) Hx of essential hypertension ICD Codes: Z86.79 - Personal history of other diseases of the circulatory system SNOMED: 586992850 Assessment/Plan: NPO iv fluids sliding scale prbc prn check electrolytes GI evaluation surgical evaluation dvt prophylaxis symptomatic treatmetFrancisco Javier Sheth MD Jun 18, 2020 13:04
--- NOTE | 2020-06-18 13:29 | Consultation ---
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 noted bloody bowel movement this AM. Patient was brought to [facility] for further evaluation admitted for further care and management. Surgery was called to evaluate for GI bleed. Patient seen, patient evaluated, chart reviewed. No nausea vomiting fever chills. Hemodynamically stable. Labs noted. Imaging pending. Unsure of last colonoscopy. Volume of blood unknown but states first bleed noted this AM. Allergies: Coded Allergies: No Known Allergies (Unverified , 07/12/18) COVID-19 Screening Contact w/high risk pt: No Experienced COVID-19 symptoms?: No Medication History Scheduled Ascorbic Acid* (Vitamin C*), 500 MG ORAL DAILY, (Reported) Aspirin* (Aspirin*), 81 MG ORAL DAILY, (Reported) Atorvastatin Calcium* (Lipitor*), 80 MG ORAL BEDTIME, (Reported) Fluoxetine Hcl* (Fluoxetine Hcl*), 40 MG ORAL DAILY, (Reported) Gabapentin* (Gabapentin*), 1,200 MG ORAL TWICE A DAY, (Reported) Heparin Sod (Porcine) (Heparin Sodium*), 5,000 UNITS SUBQ EVERY 12 HOURS, (Reported) Insulin Aspart* (Novolog*), 0 SUBQ AC+HS, (Reported) Insulin Glargine (Lantus), 10 SUBQ DAILY, (Reported) Levothyroxine Sodium* (Levothyroxine Sodium*), 125 MCG ORAL DAILY, (Reported) Scheduled PRN Acetaminophen* (Acetaminophen 325MG Tablet*), 650 MG ORAL Q4H PRN for Mild Pain/Temp > 100.5, (Reported) Al Hydroxide/mg Hydroxide (Mag-Al Plus Suspension), 30 ML PO Q4HR PRN for STOMACH UPSET, (Reported) Hydrocodone Bit/Acetaminophen 5-325* ([place] 5-325*), 1 TAB ORAL Q4H PRN for Moderate Pain (Pain Scale 4-6), (Reported) Hydrocodone Bit/Acetaminophen 5-325* ([place] 5-325*), 2 TAB ORAL Q4H PRN for Severe Pain (Pain Scale 7-10), (Reported) Magnesium Hydroxide* (Milk Of Magnesia*), 30 ML ORAL DAILY PRN for Constipation, (Reported) Zolpidem Tartrate* (Zolpidem Tartrate*), 5 MG ORAL BEDTIME PRN for Insomnia, (Reported) Miscellaneous Medications Multivitamin/Iron/Folic Acid (Multi Complete-Iron Tablet), 1 EACH PO, (Reported) Unable to Obtain Medications (Unable To Obtain Meds), (Reported) Patient History Limited by: medical condition History Provided By: Medical Record, PMD Healthcare decision maker Resuscitation status Advanced Directive on File Past Medical/Surgical History Past Medical/Surgical History: (1) Rectal bleeding (2) History of diabetes mellitus Review of Systems Review of Symptoms General ROS: no weight loss or fever Psychological ROS: no depression or mood changes, no memory loss Ophthalmic ROS: no visual changes or eye irritation ENT ROS: no nasal congestion, hearing loss, dizziness Allergy and Immunology ROS: no allergic symptoms or urticaria Hematological and Lymphatic ROS: no swollen glands, unusual bleeding or bruising Endocrine ROS: no polyuria, polydipsia, weight changes, temperature intolerance Respiratory ROS: no cough, shortness of breath, or wheezing Cardiovascular ROS: no chest pain or dyspnea on exertion Gastrointestinal ROS: denies abdominal pain, bright red blood in stool. Musculoskeletal ROS: no myalgias or arthralgias Neurological ROS: no TIA or stroke symptoms Dermatological ROS: no new or changing skin lesions, rashes or pruritis Physical Exam Physical Exam General appearance: alert, cooperative, no distress, appears stated age Head: Normocephalic, without obvious abnormality, atraumatic Eyes: conjunctivae/corneas clear. PERRL, EOM's intact. Fundi benign Throat: Lips, mucosa, and tongue normal. Teeth and gums normal Neck: supple, symmetrical, trachea midline, no adenopathy, thyroid: not enlarged, symmetric, no tenderness/mass/nodules, no carotid bruit and no JVD Lungs: clear to auscultation bilaterally Heart: regular rate and rhythm, S1, S2 normal, no murmur, click, rub or gallop Abdomen: soft, non-tender. Bowel sounds normal. No masses, no organomegaly Extremities: extremities normal, atraumatic, no cyanosis or edema Pulses: 2+ and symmetric Skin: Skin color, texture, turgor normal. No rashes or lesions Neurologic: Grossly normal Last 24 Hour Vital Signs Date Time Temp Pulse Resp B/P (MAP) Pulse Ox O2 Delivery O2 Flow Rate FiO2 06/18/20 11:45 98.1 70 18 113/66 (82) 99 Room Air Laboratory Tests Test 06/18/20 12:20 White Blood Count 12.5 K/UL (4.8-10.8) H Red Blood Count 4.29 M/UL (4.70-6.10) L Hemoglobin 12.2 G/DL (14.2-18.0) L Hematocrit 36.5 % (42.0-52.0) L Mean Corpuscular Volume 85 FL (80-99) Mean Corpuscular Hemoglobin 28.3 PG (27.0-31.0) Mean Corpuscular Hemoglobin Concent 33.3 G/DL (32.0-36.0) Red Cell Distribution Width 13.2 % (11.6-14.8) Platelet Count 263 K/UL (150-450) Mean Platelet Volume 6.7 FL (6.5-10.1) Neutrophils (%) (Auto) 64.7 % (45.0-75.0) Lymphocytes (%) (Auto) 23.9 % (20.0-45.0) Monocytes (%) (Auto) 5.3 % (1.0-10.0) Eosinophils (%) (Auto) 4.6 % (0.0-3.0) H Basophils (%) (Auto) 1.5 % (0.0-2.0) Prothrombin Time 12.2 SEC (9.30-11.50) H Prothromb Time International Ratio 1.1 (0.9-1.1) Activated Partial Thromboplast Time 25 SEC (23-33) Sodium Level 142 MMOL/L (136-145) Potassium Level 4.5 MMOL/L (3.5-5.1) Chloride Level 106 MMOL/L (98-107) Carbon Dioxide Level 26 MMOL/L (21-32) Anion Gap 10 mmol/L (5-15) Blood Urea Nitrogen 28 mg/dL (7-18) H Creatinine 1.2 MG/DL (0.55-1.30) Estimat Glomerular Filtration Rate > 60 mL/min (>60) Glucose Level 173 MG/DL (74-106) H Calcium Level 8.6 MG/DL (8.5-10.1) Total Bilirubin 0.8 MG/DL (0.2-1.0) Aspartate Amino Transf (AST/SGOT) 24 U/L (15-37) Alanine Aminotransferase (ALT/SGPT) 33 U/L (12-78) Alkaline Phosphatase 95 U/L (46-116) Total Protein 5.8 G/DL (6.4-8.2) L Albumin 3.0 G/DL (3.4-5.0) L Globulin 2.8 g/dL Albumin/Globulin Ratio 1.1 (1.0-2.7) Lipase 86 U/L (73-393) Height (Feet): 6 Height (Inches): 2.00 Weight (Pounds): 195 Medications Current Medications Medications (Trade) Dose Ordered Sig/Amanda Route PRN Reason Start Time Stop Time Status Last Admin Dose Admin Acetaminophen (Tylenol) 650 mg Q4H PRN ORAL fever 06/18/20 13:00 07/18/20 12:59 Dextrose (Dextrose 50%) 25 ml Q30M PRN IV Hypoglycemia 06/18/20 13:00 09/16/20 12:59 Dextrose (Dextrose 50%) 50 ml Q30M PRN IV Hypoglycemia 06/18/20 13:00 09/16/20 12:59 Dextrose/Sodium Chloride 1,000 ml @ 75 mls/hr [id number] IV 06/18/20 13:00 07/18/20 12:59 Diphenhydramine HCl (Benadryl) 25 mg Q6H PRN ORAL Itching/Pruritis 06/18/20 13:00 07/18/20 12:59 Fluoxetine HCl (PROzac) 40 mg DAILY ORAL 06/19/20 09:00 07/19/20 08:59 UNV Insulin Aspart (NovoLOG) BEFORE MEALS AND HS SUBQ 06/18/20 16:30 09/16/20 16:29 UNV Levothyroxine Sodium (Synthroid) 125 mcg DAILY ORAL 06/19/20 09:00 07/19/20 08:59 UNV Nitroglycerin (Ntg) 0.4 mg Q5M X 3 DOSES PRN SL Prn Chest Pain 06/18/20 13:00 07/18/20 12:59 Ondansetron HCl (Zofran) 4 mg Q6H PRN IVP Nausea & Vomiting 10/19/20 13:00 07/18/20 12:59 Polyethylene Glycol (Miralax) 17 gm HSPRN PRN ORAL Constipation 06/18/20 13:00 07/18/20 12:59 UNV Temazepam (Restoril) 15 mg HSPRN PRN ORAL Insomnia 06/18/20 13:00 06/25/20 12:59 UNV Assessment/Plan Problem List: (1) Rectal bleeding Assessment & Plan: 80M bright red blood per rectum. on eval in ED noted to have blood loose diarrhea incontinence. labs noted. abd exam benign. npo iv fluids ct a/p with contrast ordered eval mass, diverticulum, lesion gi consult serial h/h will follow with exam and recs ICD Codes: K62.5 - Hemorrhage of anus and rectum SNOMED: 44663934 (2) History of diabetes mellitus ICD Codes: Z86.39 - Personal history of other endocrine, nutritional and meta bolic disease SNOMED: 216933869 Jonatan Hurtado Jun 18, 2020 13:29
--- NOTE | 2020-06-18 14:24 | Emergency Room Report ---
History of Present Illness General Chief Complaint: General Complaint Source: Patient, Medical Record, PMD Present Illness HPI 80-year-old male presents to ED for evaluation. [facility] with rectal bleeding noted by nursing staff today. Per nursing there is bright red blood. Patient denies any pain. Denies taking any blood thinners. Denies nausea or vomiting. No other aggravating relieving factors. 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 Hx Cancer: No Hx Gastrointestinal Problems: No Hx Neurological Problems: No Review of Systems All Other Systems: negative except mentioned in HPI Physical Exam Vital Signs Date Time Temp Pulse Resp B/P (MAP) Pulse Ox O2 Delivery O2 Flow Rate FiO2 06/18/20 11:45 98.1 70 18 113/66 (82) 99 Room Air Sp02 EP Interpretation: reviewed, normal General Appearance: no apparent distress, alert, GCS 15, non-toxic Head: normocephalic, atraumatic Eyes: bilateral eye normal inspection, bilateral eye PERRL ENT: hearing grossly normal, normal pharynx, no angioedema, normal voice Neck: full range of motion, supple/symm/no masses Respiratory: chest non-tender, lungs clear, normal breath sounds, speaking full sentences Cardiovascular #1: regular rate, rhythm, no edema Cardiovascular #2: 2+ carotid (R), 2+ carotid (L), 2+ radial (R), 2+ radial (L), 2+ dorsalis pedis (R), 2+ dorsalis pedis (L) Gastrointestinal: normal bowel sounds, non tender, soft, non-distended, no guarding, no rebound Rectal: blood streaked stool Genitourinary: normal inspection, no CVA tenderness Musculoskeletal: back normal, normal range of motion, gait/station normal, non- tender Neurologic: alert, motor strength/tone normal, oriented x3, sensory intact, responsive, speech normal Psychiatric: judgement/insight normal, memory normal, mood/affect normal, no suicidal/homicidal ideation Reflexes: 3+ bicep (R), 3+ bicep (L), 3+ tricep (R), 3+ tricep (L), 3+ knee (R), 3+ knee (L) Lymphatic: no adenopathy Procedures Critical Care Time Critical Care Time i. I feel this is a highly complex case requiring extensive working including EKG/Rhythm strip, Xray/CT/US, Blood/urine lab work, repeat exams while in ED, and administration of strong opiates/narcotics for pain control, admission to hospital or close patient follow up. Total time: 45 min bedside evaluation and treatment excludes procedures (EKG). Reason for critical care: Lower GI bleed Possible complications: hypotension, hypertension, MS, shock, arrhythmias, metabolic acidosis, end organ damage, respiratory failure. Interventions: Labs, IV fluids, protonix. Course: Patient presenting with blood in stool. Vital stable. Hemoglobin/hematocrit within normal limits. Given IV fluids. Given Protonix. Consultations: nursing staff, EMS, family Performed by: Dr Negrete Tolerated well condition = serious j. because of unstable vital signs this patient had a condition that could potentially threaten life or limb. I feel this is a critical patient who required my full attention while patient was considered critical. Total Critical Care Time excluding procedures was greater than 45 minutes Medical Decision Making Diagnostic Impression: Primary Impression: LGI bleed Laboratory Tests Test 06/18/20 12:20 White Blood Count 12.5 K/UL (4.8-10.8) H Red Blood Count 4.29 M/UL (4.70-6.10) L Hemoglobin 12.2 G/DL (14.2-18.0) L Hematocrit 36.5 % (42.0-52.0) L Mean Corpuscular Volume 85 FL (80-99) Mean Corpuscular Hemoglobin 28.3 PG (27.0-31.0) Mean Corpuscular Hemoglobin Concent 33.3 G/DL (32.0-36.0) Red Cell Distribution Width 13.2 % (11.6-14.8) Platelet Count 263 K/UL (150-450) Mean Platelet Volume 6.7 FL (6.5-10.1) Neutrophils (%) (Auto) 64.7 % (45.0-75.0) Lymphocytes (%) (Auto) 23.9 % (20.0-45.0) Monocytes (%) (Auto) 5.3 % (1.0-10.0) Eosinophils (%) (Auto) 4.6 % (0.0-3.0) H Basophils (%) (Auto) 1.5 % (0.0-2.0) Prothrombin Time 12.2 SEC (9.30-11.50) H Prothromb Time International Ratio 1.1 (0.9-1.1) Activated Partial Thromboplast Time 25 SEC (23-33) Sodium Level 142 MMOL/L (136-145) Potassium Level 4.5 MMOL/L (3.5-5.1) Chloride Level 106 MMOL/L (98-107) Carbon Dioxide Level 26 MMOL/L (21-32) Anion Gap 10 mmol/L (5-15) Blood Urea Nitrogen 28 mg/dL (7-18) H Creatinine 1.2 MG/DL (0.55-1.30) Estimat Glomerular Filtration Rate > 60 mL/min (>60) Glucose Level 173 MG/DL (74-106) H Calcium Level 8.6 MG/DL (8.5-10.1) Total Bilirubin 0.8 MG/DL (0.2-1.0) Aspartate Amino Transf (AST/SGOT) 24 U/L (15-37) Alanine Aminotransferase (ALT/SGPT) 33 U/L (12-78) Alkaline Phosphatase 95 U/L (46-116) Total Protein 5.8 G/DL (6.4-8.2) L Albumin 3.0 G/DL (3.4-5.0) L Globulin 2.8 g/dL Albumin/Globulin Ratio 1.1 (1.0-2.7) Lipase 86 U/L (73-393) EKG Diagnostic Results Rate: normal Rhythm: NSR ST Segments: no acute changes ASA given to the pt in ED: No Rhythm Strip Diag. Results EP Interpretation: yes Rhythm: NSR, no PVC's, no ectopy Last Vital Signs Date Time Temp Pulse Resp B/P (MAP) Pulse Ox O2 Delivery O2 Flow Rate FiO2 06/18/20 12:00 98.1 18 113/66 99 Room Air 06/18/20 12:00 70 Status: improved Disposition: ADMITTED INPATIENT Condition: Serious Referrals: NON PHYSICIAN (PCP) Eduardo Negrete MD Jun 18, 2020 14:24
[2020-06-18] MEDS: D5 1/2NS 1,000 ML IV SCH (14:42)
--- NOTE | 2020-06-18 15:13 | Diagnostic Imaging Report ---
Indication: Chest pain Technique: XRAY Chest 1v Comparison: 07/12/2018 Findings: Heart size within the upper limits for normal. Mediastinal contours are sharp. There is no focal airspace consolidation, pneumothorax or pleural effusion. Osseous structures demonstrate no acute abnormality. Impression: No radiographic evidence of acute cardiopulmonary disease.
[2020-06-18] MEDS: NovoLOG Insulin Flexpen SUBQ SCH ×2 (16:30→20:21)
[2020-06-18 17:11] VITALS: BP 117/78
[2020-06-18] MEDS ORDERED: Zolpidem 5mg tab ORAL PRN (17:45)
[2020-06-18] MEDS ORDERED: Milk of Magnesia 30ml Ud ORAL PRN (17:45)
[2020-06-18] MEDS ORDERED: Mylanta II UD 30ml ORAL PRN (17:45)
[2020-06-18] MEDS ORDERED: HYDROcodone/Acetamin 5/325 tab ORAL PRN ×2 (17:45)
--- NOTE | 2020-06-18 19:05 | History & Physical ---
History and Physical History & Physicial Dictated for Int Med-DR Jarvis no. [id number] Kosta Mcwilliams MD Jun 18, 2020 19:05
[2020-06-18 20:00] VITALS: BP 116/61
--- NOTE | 2020-06-18 20:00 | History and Physical Report ---
DATE OF ADMISSION: 06/18/2020 CHIEF COMPLAINT: Patient is a 80-year-old male, who presents with a chief complaint of rectal bleeding. HISTORY OF PRESENT ILLNESS: Patient is a resident of [facility]. According to staff at [facility], patient had bright red blood per rectum this morning. Patient was transferred to [facility] emergency room. Patient was admitted with rectal bleeding and acute gastrointestinal hemorrhage. REVIEW OF SYSTEMS: CONSTITUTIONAL: Patient denies weight loss or weight gain. Patient denies fevers or chills. HEENT: Patient denies ear or throat pain. Patient denies headache. CARDIOVASCULAR: Patient denies palpitations or chest pain. CHEST: Patient denies wheezing or shortness of breath. ABDOMINAL: Patient denies nausea, vomiting, diarrhea, or constipation. Patient does complain of bright red blood per rectum as above. NEUROMUSCULAR: Patient denies seizures or generalized weakness. GENITOURINARY: Patient denies dysuria or increased frequency of urination. PAST MEDICAL HISTORY: Significant for: 1. Type 2 diabetes. 2. Hypertension. 3. Benign prostatic hypertrophy. 4. Coronary artery disease. 5. Hypercholesterolemia. 6. Hypothyroidism. PAST SURGICAL HISTORY: Patient denies. CURRENT MEDICATIONS: 1. Tylenol 650 mg p.o. q.4h. p.r.n. 2. Maalox 30 mL p.o. q.4h. p.r.n. 3. Vitamin C 500 mg p.o. daily. 4. Aspirin 81 mg p.o. daily. 5. Atorvastatin 80 mg p.o. daily. 6. Fluoxetine 40 mg p.o. daily. 7. Gabapentin 400 mg 3 tablets p.o. twice daily. 8. Heparin 5000 units subcutaneously twice daily. 9. [place] 5/325 one to two tablets p.o. q.4h. p.r.n. 10. NovoLog sliding scale. 11. Lantus insulin 10 units subcutaneously at bedtime. 12. Levoxyl 0.125 mcg p.o. daily. 13. Multivitamin one tablet p.o. daily. 14. Ambien 5 mg p.o. at bedtime. ALLERGIES: No known drug allergies. SOCIAL HISTORY: Patient is a . Patient denies tobacco or alcohol use. PHYSICAL EXAMINATION: VITAL SIGNS: Temperature 98.1, respirations 18, pulse 70, blood pressure 113/66, pulse ox 99% on room air. GENERAL: Patient is well-developed, well-nourished male, in no apparent distress. HEENT: Eyes, pupils equal and responsive to light and accommodation. Extraocular movements are intact. NECK: Supple without lymphadenopathy. CHEST: Lungs are clear to auscultation bilaterally without wheezes or rales. CARDIOVASCULAR: Regular rate. S1 and S2 are normal without murmurs, rubs, or gallops. ABDOMEN: Soft, nontender, and nondistended. Positive bowel sounds. No evidence of hepatosplenomegaly. Currently, no rebound or guarding noted. EXTREMITIES: Negative for clubbing, cyanosis, or edema. RECTAL/GENITAL: Not performed. NEUROLOGIC: Cranial nerves II through XII are grossly intact without focal deficits. LABORATORY STUDIES: WBC 12.5, hemoglobin 12.2, hematocrit 36.5, platelets 263,000. Sodium 142, potassium 4.5, chloride 106, CO2 26, BUN 28, creatinine 1.2, glucose 573. ProTime 12.2. INR 1.1. PTT 25. Chest x-ray was reported as no acute disease. ASSESSMENT: This is a 80-year-old male. 1. Lower gastrointestinal hemorrhage. 2. Diabetes type 2. 3. Hypertension. 4. Prostate cancer. 5. Benign prostatic hypertrophy. 6. Coronary artery disease. 7. Hypercholesterolemia. 8. Hypothyroidism. TREATMENT: 1. Lower gastrointestinal hemorrhage/rectal bleeding. A Gastroenterology consultation has been obtained with Dr. Hunter Cedeno. Differential includes hemorrhoids versus diverticulitis with perforation. We will follow recommendations of Gastroenterology. 2. Diabetes type 2. NovoLog sliding scale has been instituted. 3. Hypertension. Continue . Patient is currently hypotensive. 4. Coronary artery disease. 5. Hypercholesterolemia. Continue atorvastatin as above. 6. Hypothyroidism. Continue Synthroid as above. 7. Benign prostatic hypertrophy. Kosta Mcwilliams M.D. DR: ETHEL JOB#: [id number] CC:
[2020-06-18] MEDS: Atorvastatin 80mg tab ORAL SCH (20:19)
[2020-06-18] MEDS ORDERED: NovoLOG Insulin Flexpen SUBQ SCH (21:00)
[2020-06-18] MEDS ORDERED: Omnipaque-300 100ml vial INJ PRN (22:00)
[2020-06-19] VITALS: BP 111/53
[2020-06-19] MEDS: D5 1/2NS 1,000 ML IV SCH ×2 (02:42→15:35)
[2020-06-19 04:00] VITALS: BP 124/61
[2020-06-19] MEDS: NovoLOG Insulin Flexpen SUBQ SCH ×4 (06:15→21:13)
[2020-06-19] MEDS: Levothyroxine 125mcg tab ORAL SCH (06:16)
[2020-06-19 06:38] LABS: BASOPHILS % (AUTO) 1.2 % (0.0-2.0); EOSINOPHILS % (AUTO) 3.7 % (0.0-3.0); HEMATOCRIT 29.8 % (42.0-52.0); HEMOGLOBIN 9.9 G/DL (14.2-18.0); LYMPHOCYTES % (AUTO) 22.8 % (20.0-45.0); MEAN CORPUSCULAR VOLUME 86 FL (80-99); MONOCYTES % (AUTO) 5.7 % (1.0-10.0); NEUTROPHILS % (AUTO) 66.7 % (45.0-75.0); PLATELET COUNT 231 K/UL (150-450); RED BLOOD COUNT 3.47 M/UL (4.70-6.10); RED CELL DISTRIBUTION WIDTH 13.7 % (11.6-14.8); WHITE BLOOD COUNT 12.6 K/UL (4.8-10.8)
[2020-06-19 06:48] LABS: INR 1.1 (0.9-1.1)
[2020-06-19 07:23] LABS: ALANINE AMINOTRANSFERASE 31 U/L (12-78); ALBUMIN 2.9 G/DL (3.4-5.0); ALBUMIN/GLOBULIN RATIO 0.9 (1.0-2.7); ALKALINE PHOSPHATASE 79 U/L (46-116); AMYLASE 47 U/L (25-115); ANION GAP 5 mmol/L (5-15); ASPARTATE AMINO TRANSFERASE 24 U/L (15-37); BILIRUBIN,TOTAL 1.1 MG/DL (0.2-1.0); BLOOD UREA NITROGEN 24 mg/dL (7-18); CARBON DIOXIDE 27 MMOL/L (21-32); CHLORIDE 108 MMOL/L (98-107); CREATININE 0.9 MG/DL (0.55-1.30); SODIUM 140 MMOL/L (136-145)
[2020-06-19 07:30] LABS: BILIRUBIN,DIRECT 0.2 MG/DL (0.0-0.3)
[2020-06-19 08:00] VITALS: BP 124/66
[2020-06-19] MEDS: Ascorbic Acid 500mg tab ORAL SCH (09:10)
[2020-06-19 12:00] VITALS: BP 134/70
--- NOTE | 2020-06-19 12:09 | Cardiology Report ---
APPROVED REPORT EKG Measurement Heart [id number] <Conclusion> Normal sinus rhythm Left axis deviation Right bundle branch block Inferior infarct, age undetermined Abnormal ECG
--- NOTE | 2020-06-19 12:58 | Diagnostic Imaging Report ---
CT ABDOMEN AND PELVIS WITH CONTRAST INDICATION: Rectal bleeding TECHNIQUE: Continuous helical transaxial imaging of the abdomen and pelvis was obtained from the lung bases to the pubic symphysis during intravenous contrast administration. Coronal 2-D reformats were also obtained. Study obtained in a Siemens sensation [address] Automatic Exposure Control was utilized. Total Dose length Product (DLP): 574.[address] Dose Index Volume (CTDIvol): 13.9 mGy COMPARISON: None FINDINGS: Lower chest:: Left greater than right bibasilar subsegmental atelectasis. Mild cardiomegaly. Hepatobiliary:: Genitourinary:: In the right lower renal pole, there is a hyperdense mass measuring 2.3 x 2.1 cm. There is a 10 mm left lower pole renal calculus. No hydronephrosis. Mild prostatomegaly. Adrenals:: Unremarkable. Pancreas:: Unremarkable. Gastrointestinal:: No evidence of obstruction. There is extensive colonic diverticulosis without evidence of acute diverticulitis. Appendix is normal. There is mild eccentric wall thickening of the rectum (4:78). Spleen: : Unremarkable. Peritoneum:: There is rectus sheath muscle diastases with broad-based herniation of the lower abdominal wall containing multiple nonobstructed loops of bowel. Bones and soft tissues:: There are multilevel discogenic degenerative changes of the visualized spine. IMPRESSION: 1. Mild eccentric wall thickening of the rectum, which may be be inflammatory/reactive, due to partial underdistention, or reflective adherent stool. Recommend correlation with recent colonoscopy. 2. Colonic diverticulosis without evidence of acute diverticulitis 3. Nonobstructing left nephrolithiasis. 4. Hyperdense right lower pole renal mass, which could reflect complex/hemorrhagic cyst, but enhancing lesion such as neoplasm is not excluded. Recommend follow-up on nonemergent basis with contrast-enhanced MRI or CT (renal protocol) for more complete characterization. The CT scanner at [facility] is accredited by the [employer] and the scans are performed using protocols designed to limit radiation exposure to as low as reasonably achievable to attain images of sufficient resolution adequate for diagnostic evaluation.
--- NOTE | 2020-06-19 13:05 | Pulmonology Progress Note ---
Subjective ROS Limited/Unobtainable: No Constitutional: Reports: no symptoms HEENT: Repors: no symptoms Respiratory: Reports: no symptoms Allergies: Coded Allergies: No Known Allergies (Unverified , 07/12/18) Objective Last 24 Hour Vital Signs Date Time Temp Pulse Resp B/P (MAP) Pulse Ox O2 Delivery O2 Flow Rate FiO2 06/19/20 12:00 97.7 67 20 134/70 (91) 98 06/19/20 09:00 Room Air 06/19/20 08:00 97.7 71 20 124/66 (85) 98 06/19/20 08:00 64 06/19/20 04:00 67 06/19/20 04:00 97.7 68 20 124/61 (82) 96 06/19/20 01:07 65 06/19/20 00:00 65 06/19/20 00:00 97.3 65 18 111/53 (72) 95 06/18/20 21:00 Room Air 06/18/20 20:00 80 06/18/20 20:00 97.9 70 17 116/61 (79) 96 06/18/20 17:52 Room Air 06/18/20 17:11 98.1 89 18 117/78 99 Room Air 06/18/20 17:10 98.1 18 113/66 99 Room Air Intake and Output 06/18/20 06/19/20 19:00 07:00 Output Total 500 ml Balance -500 ml Output Urine Total 500 ml # Voids 1 2 # Bowel Movements 2 General Appearance: WD/WN HEENT: normocephalic, atraumatic Respiratory: chest wall non-tender, lungs clear Cardiovascular: normal peripheral pulses, normal rate Abdomen: normal bowel sounds, soft, non tender Genitourinary: normal external genitalia Skin: no rash 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 Lymphatic: no neck adenopathy Microbiology Date/Time Source Procedure Growth Status 06/18/20 12:20 Nasopharynx SARS-CoV-2 RdRp Gene Assay - Final Complete Laboratory Tests 06/18/20 20:10: POC Whole Blood Glucose 221H 06/19/20 05:10: White Blood Count 12.6H, Red Blood Count 3.47L, Hemoglobin 9.9L, Hematocrit 2 9.8L, Mean Corpuscular Volume 86, Mean Corpuscular Hemoglobin 28.4, Mean Corpuscular Hemoglobin Concent 33.1, Red Cell Distribution Width 13.7, Platelet Count 231, Mean Platelet Volume 6.9, Neutrophils (%) (Auto) 66.7, Lymphocytes (%) (Auto) 22.8, Monocytes (%) (Auto) 5.7, Eosinophils (%) (Auto) 3.7H, Basophils (%) (Auto) 1.2, Prothrombin Time 11.8H, Prothromb Time International Ratio 1.1, Activated Partial Thromboplast Time 25, Sodium Level 140, Potassium Level 4.0, Chloride Level 108H, Carbon Dioxide Level 27, Anion Gap 5, Blood Urea Nitrogen 24H, Creatinine 0.9, Estimat Glomerular Filtration Rate > 60, Glucose Level 103, Calcium Level 8.0L, Total Bilirubin 1.1H, Direct Bilirubin 0.2, Aspartate Amino Transf (AST/SGOT) 24, Alanine Aminotransferase (ALT/SGPT) 31, Alkaline Phosphatase 79, Total Protein 6.1L, Albumin 2.9L, Globulin 3.2, Albumin/Globulin Ratio 0.9L, Amylase Level 47, Lipase 90 06/19/20 05:21: POC Whole Blood Glucose 93 06/19/20 11:03: POC Whole Blood Glucose 115H Current Medications Medications (Trade) Dose Ordered Sig/Amanda Route PRN Reason Start Time Stop Time Status Last Admin Dose Admin Acetaminophen (Tylenol) 650 mg Q4H PRN ORAL fever 06/18/20 13:00 07/18/20 12:59 Acetaminophen (Tylenol) 650 mg Q4H PRN ORAL Mild Pain (Pain Scale 1-3) 06/18/20 17:45 07/18/20 17:44 Acetaminophen/ Hydrocodone Bitart ([place] 5/325) 1 tab Q4H PRN ORAL Moderate Pain (Pain Scale 4-6) 06/18/20 17:45 06/25/20 17:44 Acetaminophen/ Hydrocodone Bitart ([place] 5/325) 2 tab Q4H PRN ORAL Severe Pain (Pain Scale 7-10) 06/18/20 17:45 06/25/20 17:44 Al Hydroxide/Mg Hydroxide (Mylanta II) 30 ml Q4H PRN ORAL STOMACH UPSET 06/18/20 17:45 07/18/20 17:44 Ascorbic Acid (Vitamin C) 500 mg DAILY ORAL 06/19/20 09:00 07/19/20 08:59 06/19/20 09:10 Atorvastatin Calcium (Lipitor) 80 mg BEDTIME ORAL 06/18/20 21:00 09/16/20 20:59 06/18/20 20:19 Barium Sulfate (Readi-Cat 2) 450 ml NOW PRN ORAL Radiology Procedure 06/18/20 22:00 06/20/20 21:59 Dextrose (Dextrose 50%) 25 ml Q30M PRN IV Hypoglycemia 06/18/20 13:00 09/16/20 12:59 Dextrose (Dextrose 50%) 50 ml Q30M PRN IV Hypoglycemia 06/18/20 13:00 09/16/20 12:59 Dextrose/Sodium Chloride 1,000 ml @ 75 mls/hr [id number] IV 06/18/20 13:00 07/18/20 12:59 06/19/20 02:42 Diphenhydramine HCl (Benadryl) 25 mg Q6H PRN ORAL Itching/Pruritis 06/18/20 13:00 07/18/20 12:59 Fluoxetine HCl (PROzac) 40 mg DAILY ORAL 06/19/20 09:00 07/19/20 08:59 06/19/20 09:10 Gabapentin (Neurontin) 1,200 mg TWICE A DAY ORAL 06/18/20 18:00 07/18/20 17:59 06/19/20 09:10 Insulin Aspart (NovoLOG) BEFORE MEALS AND HS SUBQ 06/18/20 16:30 09/16/20 16:29 06/18/20 20:21 Iohexol (OMNIPAQUE-300 100ml) 100 ml NOW PRN INJ Radiology Procedure 06/18/20 22:00 06/20/20 21:59 Levothyroxine Sodium (Synthroid) 125 mcg ACBREAKFAST ORAL 06/19/20 06:30 07/19/20 06:29 06/19/20 06:16 Magnesium Hydroxide (Mom) 30 ml DAILYPRN PRN ORAL Constipation 06/18/20 17:45 07/18/20 17:44 Nitroglycerin (Ntg) 0.4 mg Q5M X 3 DOSES PRN SL Prn Chest Pain 06/18/20 13:00 07/18/20 12:59 Ondansetron HCl (Zofran) 4 mg Q6H PRN IVP Nausea & Vomiting 06/18/20 13:00 07/18/20 12:59 Polyethylene Glycol (Miralax) 17 gm HSPRN PRN ORAL Constipation 06/18/20 13:00 07/18/20 12:59 Zolpidem Tartrate (Ambien) 5 mg HSPRN PRN ORAL Insomnia 06/18/20 17:45 06/25/20 17:44 Assessment/Plan Problems: (1) Rectal bleeding (2) History of diabetes mellitus (3) Hx of essential hypertension Assessment/Plan continue NPO H2 blockers iv fluids sliding scale prbc prn check electrolytes GI evaluation surgical evaluation dvt prophylaxis symptomatic treatment Francisco Javier Real MD Jun 19, 2020 13:05
[2020-06-19 16:00] VITALS: BP 133/63
[2020-06-19] MEDS ORDERED: Metoprolol Tartrate 5mg/5ml Inj IVP PRN (17:15)
--- NOTE | 2020-06-19 17:26 | Internal Med Progress Note ---
Subjective Date of Service: Jun 19, 2020 Physician Name Kosta Mcwilliams Attending Physician Jeff Jarvis MD Current Medications Medications (Trade) Dose Ordered Sig/Amanda Route PRN Reason Start Time Stop Time Status Last Admin Dose Admin Acetaminophen (Tylenol) 650 mg Q4H PRN ORAL fever 06/18/20 13:00 07/18/20 12:59 Acetaminophen (Tylenol) 650 mg Q4H PRN ORAL Mild Pain (Pain Scale 1-3) 06/18/20 17:45 07/18/20 17:44 Acetaminophen/ Hydrocodone Bitart ([place] 5/325) 1 tab Q4H PRN ORAL Moderate Pain (Pain Scale 4-6) 06/18/20 17:45 06/25/20 17:44 Acetaminophen/ Hydrocodone Bitart ([place] 5/325) 2 tab Q4H PRN ORAL Severe Pain (Pain Scale 7-10) 06/18/20 17:45 06/25/20 17:44 Al Hydroxide/Mg Hydroxide (Mylanta II) 30 ml Q4H PRN ORAL STOMACH UPSET 06/18/20 17:45 07/18/20 17:44 Ascorbic Acid (Vitamin C) 500 mg DAILY ORAL 06/19/20 09:00 07/19/20 08:59 06/19/20 09:10 Atorvastatin Calcium (Lipitor) 80 mg BEDTIME ORAL 06/18/20 21:00 09/16/20 20:59 06/18/20 20:19 Barium Sulfate (Readi-Cat 2) 450 ml NOW PRN ORAL Radiology Procedure 06/18/20 22:00 06/20/20 21:59 Dextrose (Dextrose 50%) 25 ml Q30M PRN IV Hypoglycemia 06/18/20 13:00 09/16/20 12:59 Dextrose (Dextrose 50%) 50 ml Q30M PRN IV Hypoglycemia 06/18/20 13:00 09/16/20 12:59 Dextrose/Sodium Chloride 1,000 ml @ 75 mls/hr [id number] IV 06/18/20 13:00 07/18/20 12:59 06/19/20 15:35 Diphenhydramine HCl (Benadryl) 25 mg Q6H PRN ORAL Itching/Pruritis 06/18/20 13:00 07/18/20 12:59 Fluoxetine HCl (PROzac) 40 mg DAILY ORAL 06/19/20 09:00 07/19/20 08:59 06/19/20 09:10 Gabapentin (Neurontin) 1,200 mg TWICE A DAY ORAL 06/18/20 18:00 07/18/20 17:59 06/19/20 09:10 Insulin Aspart (NovoLOG) BEFORE MEALS AND HS SUBQ 06/18/20 16:30 09/16/20 16:29 06/18/20 20:21 Iohexol (OMNIPAQUE-300 100ml) 100 ml NOW PRN INJ Radiology Procedure 06/18/20 22:00 06/20/20 21:59 Levothyroxine Sodium (Synthroid) 125 mcg ACBREAKFAST ORAL 06/19/20 06:30 07/19/20 06:29 06/19/20 06:16 Magnesium Hydroxide (Mom) 30 ml DAILYPRN PRN ORAL Constipation 06/18/20 17:45 07/18/20 17:44 Metoprolol Tartrate (Lopressor) 10 mg Q4H PRN IVP HR>120 06/19/20 17:15 09/17/20 17:14 Nitroglycerin (Ntg) 0.4 mg Q5M X 3 DOSES PRN SL Prn Chest Pain 06/18/20 13:00 07/18/20 12:59 Ondansetron HCl (Zofran) 4 mg Q6H PRN IVP Nausea & Vomiting 06/18/20 13:00 07/18/20 12:59 Polyethylene Glycol (Miralax) 17 gm HSPRN PRN ORAL Constipation 06/18/20 13:00 07/18/20 12:59 Zolpidem Tartrate (Ambien) 5 mg HSPRN PRN ORAL Insomnia 06/18/20 17:45 06/25/20 17:44 Allergies: Coded Allergies: No Known Allergies (Unverified , 07/12/18) ROS Limited/Unobtainable: Yes Subjective 80 YO M admitted with rectal bleeding. Cover for Int Kvng-DR Jarvis. Now sinus tachycardia Objective Last Vital Signs Date Time Temp Pulse Resp B/P (MAP) Pulse Ox O2 Delivery O2 Flow Rate FiO2 06/19/20 16:00 97.7 62 20 133/63 (86) 98 06/19/20 09:00 Room Air Laboratory Tests Test 06/18/20 20:10 06/19/20 05:10 06/19/20 05:21 06/19/20 11:03 POC Whole Blood Glucose 221 MG/DL (74-106) H 93 MG/DL (74-106) 115 MG/DL (74-106) H White Blood Count 12.6 K/UL (4.8-10.8) H Red Blood Count 3.47 M/UL (4.70-6.10) L Hemoglobin 9.9 G/DL (14.2-18.0) L Hematocrit 29.8 % (42.0-52.0) L Mean Corpuscular Volume 86 FL (80-99) Mean Corpuscular Hemoglobin 28.4 PG (27.0-31.0) Mean Corpuscular Hemoglobin Concent 33.1 G/DL (32.0-36.0) Red Cell Distribution Width 13.7 % (11.6-14.8) Platelet Count 231 K/UL (150-450) Mean Platelet Volume 6.9 FL (6.5-10.1) Neutrophils (%) (Auto) 66.7 % (45.0-75.0) Lymphocytes (%) (Auto) 22.8 % (20.0-45.0) Monocytes (%) (Auto) 5.7 % (1.0-10.0) Eosinophils (%) (Auto) 3.7 % (0.0-3.0) H Basophils (%) (Auto) 1.2 % (0.0-2.0) Prothrombin Time 11.8 SEC (9.30-11.50) H Prothromb Time International Ratio 1.1 (0.9-1.1) Activated Partial Thromboplast Time 25 SEC (23-33) Sodium Level 140 MMOL/L (136-145) Potassium Level 4.0 MMOL/L (3.5-5.1) Chloride Level 108 MMOL/L (98-107) H Carbon Dioxide Level 27 MMOL/L (21-32) Anion Gap 5 mmol/L (5-15) Blood Urea Nitrogen 24 mg/dL (7-18) H Creatinine 0.9 MG/DL (0.55-1.30) Estimat Glomerular Filtration Rate > 60 mL/min (>60) Glucose Level 103 MG/DL (74-106) Calcium Level 8.0 MG/DL (8.5-10.1) L Total Bilirubin 1.1 MG/DL (0.2-1.0) H Direct Bilirubin 0.2 MG/DL (0.0-0.3) Aspartate Amino Transf (AST/SGOT) 24 U/L (15-37) Alanine Aminotransferase (ALT/SGPT) 31 U/L (12-78) Alkaline Phosphatase 79 U/L (46-116) Total Protein 6.1 G/DL (6.4-8.2) L Albumin 2.9 G/DL (3.4-5.0) L Globulin 3.2 g/dL Albumin/Globulin Ratio 0.9 (1.0-2.7) L Amylase Level 47 U/L (25-115) Lipase 90 U/L (73-393) Test 06/19/20 16:07 POC Whole Blood Glucose 121 MG/DL (74-106) H Microbiology Date/Time Source Procedure Growth Status 06/18/20 12:20 Nasopharynx SARS-CoV-2 RdRp Gene Assay - Final Complete Intake and Output 06/18/20 06/19/20 19:00 07:00 Output Total 500 ml Balance -500 ml Output Urine Total 500 ml # Voids 1 2 # Bowel Movements 2 Objective PHYSICAL EXAMINATION: GENERAL: Patient is well-developed, well-nourished male, in no apparent distress. HEENT: Eyes, pupils equal and responsive to light and accommodation. Extraocular movements are intact. NECK: Supple without lymphadenopathy. CHEST: Lungs are clear to auscultation bilaterally without wheezes or rales. CARDIOVASCULAR: Regular rate. S1 and S2 are normal without murmurs, rubs, or gallops. ABDOMEN: Soft, nontender, and nondistended. Positive bowel sounds. No evidence of hepatosplenomegaly. Currently, no rebound or guarding noted. EXTREMITIES: Negative for clubbing, cyanosis, or edema. RECTAL/GENITAL: Not performed. NEUROLOGIC: Cranial nerves II through XII are grossly intact without focal deficits. Assessment/Plan Assessment/Plan ASSESSMENT: This is a 80-year-old male. 1. Lower gastrointestinal hemorrhage. 2. Diabetes type 2. 3. Hypertension. 4. Prostate cancer. 5. Benign prostatic hypertrophy. 6. Coronary artery disease. 7. Hypercholesterolemia. 8. Hypothyroidism. 9. Sinus tachycardia TREATMENT: 1. Lower gastrointestinal hemorrhage/rectal bleeding. Gastroenterology consultation = Dr. Hunter Cedeno. Differential includes hemorrhoids versus diverticulitis with perforation. We will follow recommendations of Gastroenterology. 2. Diabetes type 2. Continue NovoLog sliding scale. 3. Hypertension. Continue metoprolol 4. Coronary artery disease. 5. Hypercholesterolemia. Continue atorvastatin as above. 6. Hypothyroidism. Continue Synthroid as above. 7. Benign prostatic hypertrophy. 8. Cardiology=Kosta Wells MD Jun 19, 2020 17:26
[2020-06-19 20:00] VITALS: BP 117/72
[2020-06-19] MEDS: Atorvastatin 80mg tab ORAL SCH (21:11)
--- NOTE | 2020-06-19 22:59 | Surgery Progress Note ---
Surgery Progress Note Subjective Symptoms: improved, passing flatus, BM Objective Last 24 Hour Vital Signs Date Time Temp Pulse Resp B/P (MAP) Pulse Ox O2 Delivery O2 Flow Rate FiO2 06/19/20 21:00 Room Air 06/19/20 16:38 150 06/19/20 16:00 60 06/19/20 16:00 97.7 62 20 133/63 (86) 98 06/19/20 12:00 97.7 67 20 134/70 (91) 98 06/19/20 12:00 68 06/19/20 09:00 Room Air 06/19/20 08:00 97.7 71 20 124/66 (85) 98 06/19/20 08:00 64 06/19/20 04:00 67 06/19/20 04:00 97.7 68 20 124/61 (82) 96 06/19/20 01:07 65 06/19/20 00:00 65 06/19/20 00:00 97.3 65 18 111/53 (72) 95 I&O Intake and Output 06/18/20 06/19/20 19:00 07:00 Output Total 500 ml Balance -500 ml Output Urine Total 500 ml # Voids 1 2 # Bowel Movements 2 Cardiovascular: RSR Respiratory: clear Abdomen: non-tender, present bowel sounds Extremities: no edema, no tenderness, no cyanosis Laboratory Tests Test 06/19/20 05:10 06/19/20 05:21 06/19/20 11:03 06/19/20 16:07 White Blood Count 12.6 K/UL (4.8-10.8) H Red Blood Count 3.47 M/UL (4.70-6.10) L Hemoglobin 9.9 G/DL (14.2-18.0) L Hematocrit 29.8 % (42.0-52.0) L Mean Corpuscular Volume 86 FL (80-99) Mean Corpuscular Hemoglobin 28.4 PG (27.0-31.0) Mean Corpuscular Hemoglobin Concent 33.1 G/DL (32.0-36.0) Red Cell Distribution Width 13.7 % (11.6-14.8) Platelet Count 231 K/UL (150-450) Mean Platelet Volume 6.9 FL (6.5-10.1) Neutrophils (%) (Auto) 66.7 % (45.0-75.0) Lymphocytes (%) (Auto) 22.8 % (20.0-45.0) Monocytes (%) (Auto) 5.7 % (1.0-10.0) Eosinophils (%) (Auto) 3.7 % (0.0-3.0) H Basophils (%) (Auto) 1.2 % (0.0-2.0) Prothrombin Time 11.8 SEC (9.30-11.50) H Prothromb Time International Ratio 1.1 (0.9-1.1) Activated Partial Thromboplast Time 25 SEC (23-33) Sodium Level 140 MMOL/L (136-145) Potassium Level 4.0 MMOL/L (3.5-5.1) Chloride Level 108 MMOL/L (98-107) H Carbon Dioxide Level 27 MMOL/L (21-32) Anion Gap 5 mmol/L (5-15) Blood Urea Nitrogen 24 mg/dL (7-18) H Creatinine 0.9 MG/DL (0.55-1.30) Estimat Glomerular Filtration Rate > 60 mL/min (>60) Glucose Level 103 MG/DL (74-106) Calcium Level 8.0 MG/DL (8.5-10.1) L Total Bilirubin 1.1 MG/DL (0.2-1.0) H Direct Bilirubin 0.2 MG/DL (0.0-0.3) Aspartate Amino Transf (AST/SGOT) 24 U/L (15-37) Alanine Aminotransferase (ALT/SGPT) 31 U/L (12-78) Alkaline Phosphatase 79 U/L (46-116) Total Protein 6.1 G/DL (6.4-8.2) L Albumin 2.9 G/DL (3.4-5.0) L Globulin 3.2 g/dL Albumin/Globulin Ratio 0.9 (1.0-2.7) L Amylase Level 47 U/L (25-115) Lipase 90 U/L (73-393) POC Whole Blood Glucose 93 MG/DL (74-106) 115 MG/DL (74-106) H 121 MG/DL (74-106) H Test 06/19/20 21:06 POC Whole Blood Glucose 156 MG/DL (74-106) H Plan Problems: (1) Rectal bleeding Assessment & Plan: 80M bright red blood per rectum. on eval in ED noted to have blood loose diarrhea incontinence. labs noted. abd exam benign. npo iv fluids ct a/p with contrast ordered eval mass, diverticulum, lesion gi consult serial h/h will follow with exam and recs Lower chest:: Left greater than right bibasilar subsegmental atelectasis. Mild cardiomegaly. Hepatobiliary:: Genitourinary:: In the right lower renal pole, there is a hyperdense mass measuring 2.3 x 2.1 cm. There is a 10 mm left lower pole renal calculus. No hydronephrosis. Mild prostatomegaly. Adrenals:: Unremarkable. Pancreas:: Unremarkable. Gastrointestinal:: No evidence of obstruction. There is extensive colonic diverticulosis without evidence of acute diverticulitis. Appendix is normal. There is mild eccentric wall thickening of the rectum (4:78). Spleen: : Unremarkable. Peritoneum:: There is rectus sheath muscle diastases with broad-based herniation of the lower abdominal wall containing multiple nonobstructed loops of bowel. Bones and soft tissues:: There are multilevel discogenic degenerative changes of the visualized spine. IMPRESSION: 1. Mild eccentric wall thickening of the rectum, which may be be inflammatory/reactive, due to partial underdistention, or reflective adherent stool. Recommend correlation with recent colonoscopy. 2. Colonic diverticulosis without evidence of acute diverticulitis 3. Nonobstructing left nephrolithiasis. 4. Hyperdense right lower pole renal mass, which could reflect complex/hemorrhagic cyst, but enhancing lesion such as neoplasm is not excluded. Recommend follow-up on nonemergent basis with contrast-enhanced MRI or CT (renal protocol) for more complete characterization. (2) History of diabetes mellitus Jonatan Hurtado Jun 19, 2020 22:59
[2020-06-20] VITALS: BP 104/62
[2020-06-20 04:00] VITALS: BP 126/64
[2020-06-20] MEDS: Levothyroxine 125mcg tab ORAL SCH (06:07)
[2020-06-20] MEDS: D5 1/2NS 1,000 ML IV SCH (06:07)
[2020-06-20] MEDS: NovoLOG Insulin Flexpen SUBQ SCH ×4 (06:09→21:00)
[2020-06-20 06:44] LABS: APPEARANCE,URINE CLEAR; BILIRUBIN, URINE NEGATIVE (NEGATIVE); GLUCOSE, URINE (UA) NEGATIVE (NEGATIVE); KETONES,URINE NEGATIVE (NEGATIVE); LEUKOCYTE ESTERASE ,URINE NEGATIVE (NEGATIVE); NITRITE,URINE NEGATIVE (NEGATIVE); PH,URINE 5 (4.5-8.0); PROTEIN,URINE NEGATIVE (NEGATIVE); UROBILINOGEN,URINE NORMAL MG/DL (0.0-1.0)
[2020-06-20 06:49] LABS: COLOR,URINE YELLOW
[2020-06-20 08:00] VITALS: BP 125/74
[2020-06-20] MEDS: Ascorbic Acid 500mg tab ORAL SCH (08:30)
[2020-06-20 08:35] LABS: ANION GAP 4 mmol/L (5-15); BLOOD UREA NITROGEN 12 mg/dL (7-18); CALCIUM 8.1 MG/DL (8.5-10.1); CARBON DIOXIDE 27 MMOL/L (21-32); CHLORIDE 105 MMOL/L (98-107); CREATININE 0.8 MG/DL (0.55-1.30); POTASSIUM 3.6 MMOL/L (3.5-5.1); SODIUM 136 MMOL/L (136-145)
[2020-06-20 08:39] LABS: BASOPHILS % (AUTO) 1.8 % (0.0-2.0); EOSINOPHILS % (AUTO) 7.8 % (0.0-3.0); HEMATOCRIT 28.2 % (42.0-52.0); HEMOGLOBIN 8.8 G/DL (14.2-18.0); LYMPHOCYTES % (AUTO) 22.3 % (20.0-45.0); MEAN CORPUSCULAR VOLUME 92 FL (80-99); MONOCYTES % (AUTO) 5.2 % (1.0-10.0); NEUTROPHILS % (AUTO) 62.9 % (45.0-75.0); PLATELET COUNT 149 K/UL (150-450); RED BLOOD COUNT 3.05 M/UL (4.70-6.10); RED CELL DISTRIBUTION WIDTH 14.6 % (11.6-14.8); WHITE BLOOD COUNT 9.5 K/UL (4.8-10.8)
--- NOTE | 2020-06-20 09:36 | Pulmonology Progress Note ---
Subjective ROS Limited/Unobtainable: Yes Constitutional: Reports: no symptoms HEENT: Repors: no symptoms Respiratory: Reports: no symptoms Allergies: Coded Allergies: No Known Allergies (Unverified , 07/12/18) Objective Last 24 Hour Vital Signs Date Time Temp Pulse Resp B/P (MAP) Pulse Ox O2 Delivery O2 Flow Rate FiO2 06/20/20 09:00 Room Air 06/20/20 08:00 70 06/20/20 08:00 97.4 63 20 125/74 (91) 97 06/20/20 04:00 97.7 65 18 126/64 (84) 96 06/20/20 04:00 67 06/20/20 00:00 97.9 65 20 104/62 (76) 95 06/20/20 00:00 65 06/19/20 21:00 Room Air 06/19/20 20:00 70 06/19/20 20:00 97.9 68 20 117/72 (87) 97 06/19/20 16:38 150 06/19/20 16:00 60 06/19/20 16:00 97.7 62 20 133/63 (86) 98 06/19/20 12:00 97.7 67 20 134/70 (91) 98 06/19/20 12:00 68 Intake and Output 06/19/20 06/20/20 19:00 07:00 Intake Total 575 ml 850 ml Output Total 500 ml 650 ml Balance 75 ml 200 ml Intake Oral 500 ml 100 ml IV Total 75 ml 750 ml Output Urine Total 500 ml 650 ml # Voids 1 General Appearance: WD/WN HEENT: normocephalic, atraumatic Respiratory: chest wall non-tender, lungs clear Cardiovascular: normal peripheral pulses, normal rate Abdomen: normal bowel sounds, soft, non tender Genitourinary: normal external genitalia Skin: no rash 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 Lymphatic: no neck adenopathy Microbiology Date/Time Source Procedure Growth Status 06/20/20 06:00 Rectum Received 06/18/20 12:20 Nasopharynx SARS-CoV-2 RdRp Gene Assay - Final Complete Laboratory Tests 06/19/20 11:03: POC Whole Blood Glucose 115H 06/19/20 16:07: POC Whole Blood Glucose 121H 06/19/20 21:06: POC Whole Blood Glucose 156H 06/20/20 06:00: Urine Color Yellow, Urine Appearance Clear, Urine pH 5, Urine Specific [place] 1.015, Urine Protein Negative, Urine Glucose (UA) Negative, Urine Ketones Negative, Urine Blood Negative, Urine Nitrite Negative, Urine Bilirubin Negative, Urine Urobilinogen Normal, Urine Leukocyte Esterase Negative 06/20/20 06:08: POC Whole Blood Glucose 116H 06/20/20 07:55: White Blood Count 9.5, Red Blood Count 3.05L, Hemoglobin 8.8L, Hematocrit 28.2L, Mean Corpuscular Volume 92, Mean Corpuscular Hemoglobin 28.8, Mean Corpuscular Hemoglobin Concent 31.2L, Red Cell Distribution Width 14.6, Platelet Count 149L, Mean Platelet Volume 8.4, Neutrophils (%) (Auto) 62.9, Lymphocytes (%) (Auto) 22.3, Monocytes (%) (Auto) 5.2, Eosinophils (%) (Auto) 7.8H, Basophils (%) (Auto) 1.8, Sodium Level 136, Potassium Level 3.6, Chloride Level 105, Carbon Dioxide Level 27, Anion Gap 4L, Blood Urea Nitrogen 12, Creatinine 0.8, Estimat Glomerular Filtration Rate > 60, Glucose Level 130H, Calcium Level 8.1L Current Medications Medications (Trade) Dose Ordered Sig/Amanda Route PRN Reason Start Time Stop Time Status Last Admin Dose Admin Acetaminophen (Tylenol) 650 mg Q4H PRN ORAL fever 06/18/20 13:00 07/18/20 12:59 Acetaminophen (Tylenol) 650 mg Q4H PRN ORAL Mild Pain (Pain Scale 1-3) 06/18/20 17:45 07/18/20 17:44 Acetaminophen/ Hydrocodone Bitart ([place] 5/325) 1 tab Q4H PRN ORAL Moderate Pain (Pain Scale 4-6) 06/18/20 17:45 06/25/20 17:44 Acetaminophen/ Hydrocodone Bitart ([place] 5/325) 2 tab Q4H PRN ORAL Severe Pain (Pain Scale 7-10) 06/18/20 17:45 06/25/20 17:44 Al Hydroxide/Mg Hydroxide (Mylanta II) 30 ml Q4H PRN ORAL STOMACH UPSET 06/18/20 17:45 07/18/20 17:44 Ascorbic Acid (Vitamin C) 500 mg DAILY ORAL 06/19/20 09:00 07/19/20 08:59 06/20/20 08:30 Atorvastatin Calcium (Lipitor) 80 mg BEDTIME ORAL 06/18/20 21:00 09/16/20 20:59 06/19/20 21:11 Barium Sulfate (Readi-Cat 2) 450 ml NOW PRN ORAL Radiology Procedure 06/18/20 22:00 06/20/20 21:59 Dextrose (Dextrose 50%) 25 ml Q30M PRN IV Hypoglycemia 06/18/20 13:00 09/16/20 12:59 Dextrose (Dextrose 50%) 50 ml Q30M PRN IV Hypoglycemia 06/18/20 13:00 09/16/20 12:59 Dextrose/Sodium Chloride 1,000 ml @ 75 mls/hr [id number] IV 06/18/20 13:00 07/18/20 12:59 06/20/20 06:07 Diphenhydramine HCl (Benadryl) 25 mg Q6H PRN ORAL Itching/Pruritis 06/18/20 13:00 07/18/20 12:59 Fluoxetine HCl (PROzac) 40 mg DAILY ORAL 06/19/20 09:00 07/19/20 08:59 06/20/20 08:30 Gabapentin (Neurontin) 1,200 mg TWICE A DAY ORAL 06/18/20 18:00 07/18/20 17:59 06/20/20 08:30 Insulin Aspart (NovoLOG) BEFORE MEALS AND HS SUBQ 06/18/20 16:30 09/16/20 16:29 06/19/20 21:13 Iohexol (OMNIPAQUE-300 100ml) 100 ml NOW PRN INJ Radiology Procedure 06/18/20 22:00 06/20/20 21:59 Levothyroxine Sodium (Synthroid) 125 mcg ACBREAKFAST ORAL 06/19/20 06:30 07/19/20 06:29 06/20/20 06:07 Magnesium Hydroxide (Mom) 30 ml DAILYPRN PRN ORAL Constipation 06/18/20 17:45 07/18/20 17:44 Metoprolol Tartrate (Lopressor) 10 mg Q4H PRN IVP HR>120 06/19/20 17:15 09/17/20 17:14 Nitroglycerin (Ntg) 0.4 mg Q5M X 3 DOSES PRN SL Prn Chest Pain 06/18/20 13:00 07/18/20 12:59 Ondansetron HCl (Zofran) 4 mg Q6H PRN IVP Nausea & Vomiting 06/18/20 13:00 07/18/20 12:59 Polyethylene Glycol (Miralax) 17 gm HSPRN PRN ORAL Constipation 06/18/20 13:00 07/18/20 12:59 Zolpidem Tartrate (Ambien) 5 mg HSPRN PRN ORAL Insomnia 06/18/20 17:45 06/25/20 17:44 Assessment/Plan Problems: (1) Rectal bleeding (2) Renal mass (3) History of diabetes mellitus (4) Hx of essential hypertension Assessment/Plan MRI of kidney as recommended by radiology continue NPO H2 blockers iv fluids sliding scale prbc prn check electrolytes awaiting GI evaluation surgical evaluation appreciated dvt prophylaxis symptomatic treatment Francisco Javier Real MD Jun 20, 2020 09:36
[2020-06-20] MEDS ORDERED: Gadavist 7.5mMol/7.5ml vial IV PRN (09:45)
[2020-06-20] MEDS ORDERED: TYLENOL WITH C1 EACH ORAL (09:52)
[2020-06-20] MEDS ORDERED: MUSCLE RUB CRE113 GM TP (09:52)
[2020-06-20] MEDS ORDERED: FLUTICASONE PRO16 G1 NASAL (09:52)
[2020-06-20] MEDS ORDERED: GUAIFENESI100 MG/5 M ORAL (09:52)
[2020-06-20] MEDS ORDERED: FLUOXETINE HCL40 MG ORAL (09:52)
[2020-06-20] MEDS ORDERED: POLYETHYLENE GL17 GM ORAL (09:52)
[2020-06-20] MEDS ORDERED: REFRESH LIQUIGE15 ML OP (09:52)
[2020-06-20] MEDS ORDERED: MULTIVITAMIN WI15 MG PO (09:52)
[2020-06-20] MEDS ORDERED: LIDOCAINE HC28.35 GM TP (09:52)
--- NOTE | 2020-06-20 11:10 | Internal Med Progress Note ---
Subjective Date of Service: Jun 20, 2020 Physician Name Kosta Mcwilliams Attending Physician Jeff Jarvis MD Current Medications Medications (Trade) Dose Ordered Sig/Amanda Route PRN Reason Start Time Stop Time Status Last Admin Dose Admin Acetaminophen (Tylenol) 650 mg Q4H PRN ORAL fever 06/18/20 13:00 07/18/20 12:59 Acetaminophen (Tylenol) 650 mg Q4H PRN ORAL Mild Pain (Pain Scale 1-3) 06/18/20 17:45 07/18/20 17:44 Acetaminophen/ Hydrocodone Bitart ([place] 5/325) 1 tab Q4H PRN ORAL Moderate Pain (Pain Scale 4-6) 06/18/20 17:45 06/25/20 17:44 Acetaminophen/ Hydrocodone Bitart ([place] 5/325) 2 tab Q4H PRN ORAL Severe Pain (Pain Scale 7-10) 06/18/20 17:45 06/25/20 17:44 Al Hydroxide/Mg Hydroxide (Mylanta II) 30 ml Q4H PRN ORAL STOMACH UPSET 06/18/20 17:45 07/18/20 17:44 Ascorbic Acid (Vitamin C) 500 mg DAILY ORAL 06/19/20 09:00 07/19/20 08:59 06/20/20 08:30 Atorvastatin Calcium (Lipitor) 80 mg BEDTIME ORAL 06/18/20 21:00 09/16/20 20:59 06/19/20 21:11 Barium Sulfate (Readi-Cat 2) 450 ml NOW PRN ORAL Radiology Procedure 06/18/20 22:00 06/20/20 21:59 Dextrose (Dextrose 50%) 25 ml Q30M PRN IV Hypoglycemia 06/18/20 13:00 09/16/20 12:59 Dextrose (Dextrose 50%) 50 ml Q30M PRN IV Hypoglycemia 06/18/20 13:00 09/16/20 12:59 Dextrose/ Electrolytes 1,000 ml @ 75 mls/hr [id number] IV 06/20/20 16:00 07/20/20 15:59 Dextrose/Sodium Chloride 1,000 ml @ 75 mls/hr [id number] IV 06/18/20 13:00 06/20/20 15:59 06/20/20 06:07 Diphenhydramine HCl (Benadryl) 25 mg Q6H PRN ORAL Itching/Pruritis 06/18/20 13:00 07/18/20 12:59 Fluoxetine HCl (PROzac) 40 mg DAILY ORAL 06/19/20 09:00 07/19/20 08:59 06/20/20 08:30 Gabapentin (Neurontin) 1,200 mg TWICE A DAY ORAL 06/18/20 18:00 07/18/20 17:59 06/20/20 08:30 Gadobutrol (Gadavist) 7.5 mmol NOW PRN IV Radiology Procedure 06/20/20 09:45 06/24/20 09:44 Insulin Aspart (NovoLOG) BEFORE MEALS AND HS SUBQ 06/18/20 16:30 09/16/20 16:29 06/19/20 21:13 Iohexol (OMNIPAQUE-300 100ml) 100 ml NOW PRN INJ Radiology Procedure 06/18/20 22:00 06/20/20 21:59 Levothyroxine Sodium (Synthroid) 125 mcg ACBREAKFAST ORAL 06/19/20 06:30 07/19/20 06:29 06/20/20 06:07 Magnesium Hydroxide (Mom) 30 ml DAILYPRN PRN ORAL Constipation 06/18/20 17:45 07/18/20 17:44 Metoprolol Tartrate (Lopressor) 10 mg Q4H PRN IVP HR>120 06/19/20 17:15 09/17/20 17:14 Nitroglycerin (Ntg) 0.4 mg Q5M X 3 DOSES PRN SL Prn Chest Pain 06/18/20 13:00 07/18/20 12:59 Ondansetron HCl (Zofran) 4 mg Q6H PRN IVP Nausea & Vomiting 06/18/20 13:00 07/18/20 12:59 Polyethylene Glycol (Miralax) 17 gm HSPRN PRN ORAL Constipation 06/18/20 13:00 07/18/20 12:59 Polyethylene Glycol/ Electrolytes (Golytely) 4,000 ml ONCE ORAL 06/20/20 14:00 06/20/20 23:59 Zolpidem Tartrate (Ambien) 5 mg HSPRN PRN ORAL Insomnia 06/18/20 17:45 06/25/20 17:44 Allergies: Coded Allergies: No Known Allergies (Unverified , 07/12/18) ROS Limited/Unobtainable: Yes Subjective 80 YO M admitted with rectal bleeding. Cover for Int Kvng-DR Jarvis. Now sinus tachycardia Objective Last Vital Signs Date Time Temp Pulse Resp B/P (MAP) Pulse Ox O2 Delivery O2 Flow Rate FiO2 06/20/20 09:00 Room Air 06/20/20 08:00 70 06/20/20 08:00 97.4 20 125/74 (91) 97 Laboratory Tests Test 06/19/20 16:07 06/19/20 21:06 06/20/20 06:00 06/20/20 06:08 POC Whole Blood Glucose 121 MG/DL (74-106) H 156 MG/DL (74-106) H 116 MG/DL (74-106) H Urine Color Yellow Urine Appearance Clear Urine pH 5 (4.5-8.0) Urine Specific [place] 1.015 (1.005-1.035) Urine Protein Negative (NEGATIVE) Urine Glucose (UA) Negative (NEGATIVE) Urine Ketones Negative (NEGATIVE) Urine Blood Negative (NEGATIVE) Urine Nitrite Negative (NEGATIVE) Urine Bilirubin Negative (NEGATIVE) Urine Urobilinogen Normal MG/DL (0.0-1.0) Urine Leukocyte Esterase Negative (NEGATIVE) Test 06/20/20 07:55 06/20/20 10:57 White Blood Count 9.5 K/UL (4.8-10.8) Red Blood Count 3.05 M/UL (4.70-6.10) L Hemoglobin 8.8 G/DL (14.2-18.0) L Hematocrit 28.2 % (42.0-52.0) L Mean Corpuscular Volume 92 FL (80-99) Mean Corpuscular Hemoglobin 28.8 PG (27.0-31.0) Mean Corpuscular Hemoglobin Concent 31.2 G/DL (32.0-36.0) L Red Cell Distribution Width 14.6 % (11.6-14.8) Platelet Count 149 K/UL (150-450) L Mean Platelet Volume 8.4 FL (6.5-10.1) Neutrophils (%) (Auto) 62.9 % (45.0-75.0) Lymphocytes (%) (Auto) 22.3 % (20.0-45.0) Monocytes (%) (Auto) 5.2 % (1.0-10.0) Eosinophils (%) (Auto) 7.8 % (0.0-3.0) H Basophils (%) (Auto) 1.8 % (0.0-2.0) Sodium Level 136 MMOL/L (136-145) Potassium Level 3.6 MMOL/L (3.5-5.1) Chloride Level 105 MMOL/L (98-107) Carbon Dioxide Level 27 MMOL/L (21-32) Anion Gap 4 mmol/L (5-15) L Blood Urea Nitrogen 12 mg/dL (7-18) Creatinine 0.8 MG/DL (0.55-1.30) Estimat Glomerular Filtration Rate > 60 mL/min (>60) Glucose Level 130 MG/DL (74-106) H Calcium Level 8.1 MG/DL (8.5-10.1) L POC Whole Blood Glucose 128 MG/DL (74-106) H Microbiology Date/Time Source Procedure Growth Status 06/20/20 06:00 Rectum Received 06/18/20 12:20 Nasopharynx SARS-CoV-2 RdRp Gene Assay - Final Complete Intake and Output 06/19/20 06/20/20 19:00 07:00 Intake Total 575 ml 850 ml Output Total 500 ml 650 ml Balance 75 ml 200 ml Intake Oral 500 ml 100 ml IV Total 75 ml 750 ml Output Urine Total 500 ml 650 ml # Voids 1 Objective PHYSICAL EXAMINATION: GENERAL: Patient is well-developed, well-nourished male, in no apparent distress. HEENT: Eyes, pupils equal and responsive to light and accommodation. Extraocular movements are intact. NECK: Supple without lymphadenopathy. CHEST: Lungs are clear to auscultation bilaterally without wheezes or rales. CARDIOVASCULAR: Regular rate. S1 and S2 are normal without murmurs, rubs, or gallops. ABDOMEN: Soft, nontender, and nondistended. Positive bowel sounds. No evidence of hepatosplenomegaly. Currently, no rebound or guarding noted. EXTREMITIES: Negative for clubbing, cyanosis, or edema. RECTAL/GENITAL: Not performed. NEUROLOGIC: Cranial nerves II through XII are grossly intact without focal deficits. Assessment/Plan Assessment/Plan ASSESSMENT: This is a 80-year-old male. 1. Lower gastrointestinal hemorrhage. 2. Diabetes type 2. 3. Hypertension. 4. Prostate cancer. 5. Benign prostatic hypertrophy. 6. Coronary artery disease. 7. Hypercholesterolemia. 8. Hypothyroidism. 9. Sinus tachycardia TREATMENT: 1. Lower gastrointestinal hemorrhage/rectal bleeding. CT=diverticulosis. Gastroenterology consultation = Dr. Hunter Cedeno. Differential includes hemorrhoids versus diverticulitis with perforation. We will follow recommendations of Gastroenterology. 2. Diabetes type 2. Continue NovoLog sliding scale. 3. Hypertension. Continue metoprolol 4. Coronary artery disease. 5. Hypercholesterolemia. Continue atorvastatin as above. 6. Hypothyroidism. Continue Synthroid as above. 7. Benign prostatic hypertrophy. 8. Cardiology=Kosta Wells MD Jun 20, 2020 11:09
[2020-06-20 12:00] VITALS: BP 141/62
--- NOTE | 2020-06-20 13:14 | Surgery Progress Note ---
Surgery Progress Note Subjective Additional Comments no acute events h/h noted is awaiting colonoscopy CT reviewed no n/v/ no longer noted blood Objective Last 24 Hour Vital Signs Date Time Temp Pulse Resp B/P (MAP) Pulse Ox O2 Delivery O2 Flow Rate FiO2 06/20/20 12:00 98.1 68 18 141/62 (88) 96 06/20/20 09:00 Room Air 06/20/20 08:00 70 06/20/20 08:00 97.4 63 20 125/74 (91) 97 06/20/20 04:00 97.7 65 18 126/64 (84) 96 06/20/20 04:00 67 06/20/20 00:00 97.9 65 20 104/62 (76) 95 06/20/20 00:00 65 06/19/20 21:00 Room Air 06/19/20 20:00 70 06/19/20 20:00 97.9 68 20 117/72 (87) 97 06/19/20 16:38 150 06/19/20 16:00 60 06/19/20 16:00 97.7 62 20 133/63 (86) 98 I&O Intake and Output 06/19/20 06/20/20 19:00 07:00 Intake Total 575 ml 850 ml Output Total 500 ml 650 ml Balance 75 ml 200 ml Intake Oral 500 ml 100 ml IV Total 75 ml 750 ml Output Urine Total 500 ml 650 ml # Voids 1 Cardiovascular: RSR Respiratory: clear Abdomen: soft, non-tender, present bowel sounds Extremities: no tenderness, no cyanosis Laboratory Tests Test 06/19/20 16:07 06/19/20 21:06 06/20/20 06:00 06/20/20 06:08 POC Whole Blood Glucose 121 MG/DL (74-106) H 156 MG/DL (74-106) H 116 MG/DL (74-106) H Urine Color Yellow Urine Appearance Clear Urine pH 5 (4.5-8.0) Urine Specific [place] 1.015 (1.005-1.035) Urine Protein Negative (NEGATIVE) Urine Glucose (UA) Negative (NEGATIVE) Urine Ketones Negative (NEGATIVE) Urine Blood Negative (NEGATIVE) Urine Nitrite Negative (NEGATIVE) Urine Bilirubin Negative (NEGATIVE) Urine Urobilinogen Normal MG/DL (0.0-1.0) Urine Leukocyte Esterase Negative (NEGATIVE) Test 06/20/20 07:55 06/20/20 10:57 White Blood Count 9.5 K/UL (4.8-10.8) Red Blood Count 3.05 M/UL (4.70-6.10) L Hemoglobin 8.8 G/DL (14.2-18.0) L Hematocrit 28.2 % (42.0-52.0) L Mean Corpuscular Volume 92 FL (80-99) Mean Corpuscular Hemoglobin 28.8 PG (27.0-31.0) Mean Corpuscular Hemoglobin Concent 31.2 G/DL (32.0-36.0) L Red Cell Distribution Width 14.6 % (11.6-14.8) Platelet Count 149 K/UL (150-450) L Mean Platelet Volume 8.4 FL (6.5-10.1) Neutrophils (%) (Auto) 62.9 % (45.0-75.0) Lymphocytes (%) (Auto) 22.3 % (20.0-45.0) Monocytes (%) (Auto) 5.2 % (1.0-10.0) Eosinophils (%) (Auto) 7.8 % (0.0-3.0) H Basophils (%) (Auto) 1.8 % (0.0-2.0) Sodium Level 136 MMOL/L (136-145) Potassium Level 3.6 MMOL/L (3.5-5.1) Chloride Level 105 MMOL/L (98-107) Carbon Dioxide Level 27 MMOL/L (21-32) Anion Gap 4 mmol/L (5-15) L Blood Urea Nitrogen 12 mg/dL (7-18) Creatinine 0.8 MG/DL (0.55-1.30) Estimat Glomerular Filtration Rate > 60 mL/min (>60) Glucose Level 130 MG/DL (74-106) H Calcium Level 8.1 MG/DL (8.5-10.1) L POC Whole Blood Glucose 128 MG/DL (74-106) H Plan Problems: (1) Rectal bleeding Assessment & Plan: 80M bright red blood per rectum. on eval in ED noted to have blood loose diarrhea incontinence. labs noted. abd exam benign. npo iv fluids ct a/p with contrast ordered eval mass, diverticulum, lesion gi consult serial h/h will follow with exam and recs Lower chest:: Left greater than right bibasilar subsegmental atelectasis. Mild cardiomegaly. Hepatobiliary:: Genitourinary:: In the right lower renal pole, there is a hyperdense mass measuring 2.3 x 2.1 cm. There is a 10 mm left lower pole renal calculus. No hydronephrosis. Mild prostatomegaly. Adrenals:: Unremarkable. Pancreas:: Unremarkable. Gastrointestinal:: No evidence of obstruction. There is extensive colonic diverticulosis without evidence of acute diverticulitis. Appendix is normal. There is mild eccentric wall thickening of the rectum (4:78). Spleen: : Unremarkable. Peritoneum:: There is rectus sheath muscle diastases with broad-based herniation of the lower abdominal wall containing multiple nonobstructed loops of bowel. Bones and soft tissues:: There are multilevel discogenic degenerative changes of the visualized spine. IMPRESSION: 1. Mild eccentric wall thickening of the rectum, which may be be inflammatory/reactive, due to partial underdistention, or reflective adherent stool. Recommend correlation with recent colonoscopy. 2. Colonic diverticulosis without evidence of acute diverticulitis 3. Nonobstructing left nephrolithiasis. 4. Hyperdense right lower pole renal mass, which could reflect co mplex/hemorrhagic cyst, but enhancing lesion such as neoplasm is not excluded. Recommend follow-up on nonemergent basis with contrast-enhanced MRI or CT (renal protocol) for more complete characterization. (2) History of diabetes mellitus Jonatan Hurtado Jun 20, 2020 13:14
--- NOTE | 2020-06-20 13:54 | CDS Physician Query ---
Clarification is required for compliance, coding accuracy, and to reflect severity of illness for this patient Dear Dr. Kosta Mcwilliams Date: 06/20/2020 Duplicator Punch Operator/CDS Name: Ivanna Leiva Clinical Documentation states: HNP: 80-year-old male, who presents with a chief complaint of rectal bleeding Labs: 06/18 Hb 12.2, Hct 36.5 06/19 Hb 9.9, Hct 29.8 06/20 Hb 8.8 Hct 28.2 Please respond to the following question: Is there a diagnosis specific to these symptoms or values? If so please state below. PHYSICIAN RESPONSE: [X] Acute blood loss Anemia [] Drop in Hemoglobin [] Drop in Hematocrit [] Other Anemia [] Other [] Clinically Undertemined Present on Admission: [X] Yes [] No [] Clinically Undetermined Physician signature Date Please also document in your Progress Notes and/or Discharge Summary and indicate if the condition was present on admission. JORDID
[2020-06-20] MEDS ORDERED: Golytely 4L ORAL SCH (14:00)
[2020-06-20 16:00] VITALS: BP 160/65
--- NOTE | 2020-06-20 16:21 | Diagnostic Imaging Report ---
Indication: Right renal mass incidentally noted on CT of the abdomen 06/19/2020. MRI requested for further characterization. Technique: MRI of the abdomen was obtained utilizing a multiplanar/multisequence acquisition. Images were obtained before and after the administration of gadolinium. Comparison: Correlation made to CT of the abdomen and pelvis 06/19/2020 Findings: There is a questioned mass in the right kidney demonstrates signal hypointensity on T2 imaging. On postcontrast imaging this mass is noted to enhance fairly uniformly. This mass measures approximately 2.3 x 2.1 x 2.3 cm. There is relative washout of enhancement of the mass compared to the adjacent normal renal parenchyma on more delayed postcontrast imaging. There has been interval development of mild right-sided hydronephrosis, likely related to degree of obstruction from the right ureteral stone noted on prior CT. Known nonobstructing stone in the lower pole the left kidney better appreciated on concurrent CT. No evidence of hydronephrosis on the left. Hepatic signal is homogeneous. No gallstones or pericholecystic inflammatory changes appreciated. Abdominal aorta normal in caliber. Spleen demonstrates normal homogenous signal. Adrenal glands unremarkable. Pancreas unremarkable. IMPRESSION: Solid mass in the lower pole of the right kidney measuring approximately 2.2 cm. Renal cell carcinoma not excluded. Urology follow-up recommended. Interval development of mild right-sided hydronephrosis, likely related to a degree of obstruction from right ureteral calculus better seen on prior CT.
[2020-06-20] MEDS: D5 1/2NS w/KCl 20mEq 1,000 ML IV SCH (16:26)
--- NOTE | 2020-06-20 16:45 | Consultation ---
DATE OF CONSULTATION: 06/20/2020 GASTROENTEROLOGY CONSULTATION CONSULTING PHYSICIAN: Hunter Cedeno MD. REFERRING PHYSICIAN: Kosta Mcwilliams MD. CHIEF COMPLAINT: Rectal bleeding. HISTORY OF PRESENT ILLNESS: This is a very pleasant 80-year-old male who was [facility] from jail for having rectal bleeding. According to the patient, he has been lot of blood. He never had this problem before. Last colonoscopy many years ago. Denies any significant abdominal pain. Denies any nausea, vomiting, dysphagia, odynophagia. PAST MEDICAL HISTORY: 1. Type 2 diabetes. 2. Hypertension. 3. BPH. 4. Coronary artery disease. 5. Hypercholesterolemia. 6. Hypothyroidism. 7. Diverticulosis. ALLERGIES: No known allergies. MEDICATIONS: Please see medication reconciliation. SOCIAL HISTORY: Currently lives in a jail. No recent history of tobacco, alcohol, or drug abuse. PAST SURGICAL HISTORY: None. REVIEW OF SYSTEMS: A 10-point review of systems was performed and pertinent positives in HPI. PHYSICAL EXAMINATION: VITAL SIGNS: Temperature 97.4, pulse 63, respirations 20, blood pressure 125/74. HEENT: Normocephalic and atraumatic. Sclerae are anicteric. NECK: Supple. No evidence of obvious lymphadenopathy. CARDIOVASCULAR: Regular rate and rhythm. Plus S1-S2. LUNGS: Clear to auscultation bilaterally. ABDOMEN: Positive bowel sounds. Soft and nontender. No rebound. No guarding. No peritoneal sign. EXTREMITIES: No cyanosis, no clubbing, no edema. ASSESSMENT AND PLAN: This is a 80-year-old male with GI bleeding, most probably diverticular bleed. Given the drop in H and H and given no prior or recent colonoscopy, the patient would benefit from endoscopy and colonoscopy for evaluation of source of bleeding. Our plan will be to keep the patient on clear liquid diet for today, prep for endoscopy and colonoscopy tomorrow. I want to thank Dr. Mcwilliams for this kind referral. Hunter Cedeno M.D. DR: SHRUTI JOB#: [id number] CC: Kosta Mcwilliams M.D.; Fax#: [phone]
--- NOTE | 2020-06-20 19:07 | Cardiology Progress Note ---
Assessment/Plan Assessment/Plan [id number] Objective Last 24 Hour Vital Signs Date Time Temp Pulse Resp B/P (MAP) Pulse Ox O2 Delivery O2 Flow Rate FiO2 06/20/20 16:00 65 06/20/20 16:00 97.7 69 20 160/65 (96) 97 06/20/20 12:00 98.1 68 18 141/62 (88) 96 06/20/20 12:00 63 06/20/20 09:00 Room Air 06/20/20 08:00 70 06/20/20 08:00 97.4 63 20 125/74 (91) 97 06/20/20 04:00 97.7 65 18 126/64 (84) 96 06/20/20 04:00 67 06/20/20 00:00 97.9 65 20 104/62 (76) 95 06/20/20 00:00 65 06/19/20 21:00 Room Air 06/19/20 20:00 70 06/19/20 20:00 97.9 68 20 117/72 (87) 97 Intake and Output 06/19/20 06/20/20 19:00 07:00 Intake Total 575 ml 850 ml Output Total 500 ml 650 ml Balance 75 ml 200 ml Intake Oral 500 ml 100 ml IV Total 75 ml 750 ml Output Urine Total 500 ml 650 ml # Voids 1 Laboratory Tests Test 06/19/20 21:06 06/20/20 06:00 06/20/20 06:08 06/20/20 07:55 POC Whole Blood Glucose 156 MG/DL (74-106) H 116 MG/DL (74-106) H Urine Color Yellow Urine Appearance Clear Urine pH 5 (4.5-8.0) Urine Specific [place] 1.015 (1.005-1.035) Urine Protein Negative (NEGATIVE) Urine Glucose (UA) Negative (NEGATIVE) Urine Ketones Negative (NEGATIVE) Urine Blood Negative (NEGATIVE) Urine Nitrite Negative (NEGATIVE) Urine Bilirubin Negative (NEGATIVE) Urine Urobilinogen Normal MG/DL (0.0-1.0) Urine Leukocyte Esterase Negative (NEGATIVE) White Blood Count 9.5 K/UL (4.8-10.8) Red Blood Count 3.05 M/UL (4.70-6.10) L Hemoglobin 8.8 G/DL (14.2-18.0) L Hematocrit 28.2 % (42.0-52.0) L Mean Corpuscular Volume 92 FL (80-99) Mean Corpuscular Hemoglobin 28.8 PG (27.0-31.0) Mean Corpuscular Hemoglobin Concent 31.2 G/DL (32.0-36.0) L Red Cell Distribution Width 14.6 % (11.6-14.8) Platelet Count 149 K/UL (150-450) L Mean Platelet Volume 8.4 FL (6.5-10.1) Neutrophils (%) (Auto) 62.9 % (45.0-75.0) Lymphocytes (%) (Auto) 22.3 % (20.0-45.0) Monocytes (%) (Auto) 5.2 % (1.0-10.0) Eosinophils (%) (Auto) 7.8 % (0.0-3.0) H Basophils (%) (Auto) 1.8 % (0.0-2.0) Sodium Level 136 MMOL/L (136-145) Potassium Level 3.6 MMOL/L (3.5-5.1) Chloride Level 105 MMOL/L (98-107) Carbon Dioxide Level 27 MMOL/L (21-32) Anion Gap 4 mmol/L (5-15) L Blood Urea Nitrogen 12 mg/dL (7-18) Creatinine 0.8 MG/DL (0.55-1.30) Estimat Glomerular Filtration Rate > 60 mL/min (>60) Glucose Level 130 MG/DL (74-106) H Calcium Level 8.1 MG/DL (8.5-10.1) L Test 06/20/20 10:57 06/20/20 16:24 POC Whole Blood Glucose 128 MG/DL (74-106) H 136 MG/DL (74-106) H Microbiology Date/Time Source Procedure Growth Status 06/20/20 06:00 Rectum Received 06/18/20 12:20 Nasopharynx SARS-CoV-2 RdRp Gene Assay - Final Complete Miguel Frank MD Jun 20, 2020 19:07
[2020-06-20 20:00] VITALS: BP 128/68
[2020-06-20] MEDS: Atorvastatin 80mg tab ORAL SCH (21:08)
--- NOTE | 2020-06-20 23:15 | Consultation ---
DATE OF CONSULTATION: 06/20/2020 CARDIAC CONSULTATION CONSULTING PHYSICIAN: Miguel Frank MD REFERRING PHYSICIAN: Kosta Mcwilliams MD REASON FOR REFERRAL: Tachycardia. HISTORY OF PRESENT ILLNESS: This is an elderly gentleman who is a resident of a convalescent facility. The patient has been admitted to the hospital here at the [facility] [place], having been transferred from a convalescent facility because of rectal bleeding. This consultation was requested because of tachycardia with heart rates reported in the excess of 140 to 150. The patient's information was obtained from reviewing the chart and the emergency room physician. The patient was transferred because of bright red blood per rectum. Apparently, denied any chest pain. Denied any ingestion or anticoagulation. No nausea or vomiting and no other symptoms apparently. PAST MEDICAL HISTORY: Positive for diabetes, hypertension, benign prostatic hypertrophy, coronary artery disease, hyperlipidemia, and hypothyroidism. He has a history of COVID-19 that was positive back on May 08, 2020, according to the records. The patient also has a history of pressure ulcer in the right ankle, lateral meniscus injury to the left leg, bilateral osteoarthritis, diabetes mellitus type 2, multinodular goiter, anemia, malignant neoplasm of the prostate, spinal stenosis, cervical lesion, coronary artery disease without angina, depression, osteoarthritis of the knee, and elevated white blood count. MEDICATIONS: His medications at the convalescent facility include Tylenol, aspirin 81 mg, Lipitor 80 mg, Prozac 40 mg, gabapentin 1200 mg 2 times daily, Liz-Tussin, Lantus insulin, Synthroid 0.125 mg, Lidoderm patch, multivitamins, polyethylene glycol, and Tylenol with Codeine. ALLERGIES: He is reportedly allergic to simvastatin. SOCIAL HISTORY: He does not smoke or drink and lives in a convalescent facility. REVIEW OF SYSTEMS: According to the chart:CARDIAC: Denies any chest pain, palpitations, or shortness of breath. PULMONARY: No coughing or wheezing. CONSTITUTIONAL: No weight loss or weight gain and no fevers or chills. PHYSICAL EXAMINATION: VITAL SIGNS: The patient's pulse is 69 beats per minute and blood pressure is 160/65 with temperature of 97.7, and I reviewed the patient's pulse history. The patient was reported to have a heart rate of 150 yesterday at 1638 hours, but subsequently 70s have been documented. No telemetry strips that correspond to that heart rate. NECK: Shows neck to be supple. No adenopathy. LUNGS: Clear to auscultation and percussion without any wheezes. CARDIAC: Regular rate and rhythm. No heaves. ABDOMEN: Soft, nontender. Positive bowel sounds. The patient did not have any masses in the abdomen. No peritoneal signs. EXTREMITIES: There is no edema. No cyanosis. LABORATORY AND DIAGNOSTIC DATA: The patient's data was reviewed. Telemetry at this time shows sinus rhythm, but appears to be normal sinus rhythm at this time. I am not able to find any evidence of sinus tachycardia. His shows sinus rhythm, left axis deviation, left anterior fascicular block versus an inferior infarction. Left bundle-branch conduction defect being documented on the EKG. There are no other cardiac testing available in the chart. Blood test shows white count of 9.5 and hemoglobin 8.8 down from 12.2 at the time of his admission on 06/18/2020 with platelet count of 149,000. Sodium 136, potassium 3.6, chloride 105, bicarb 27, BUN 12, creatinine 0.8, and glucose of 130. Blood sugars have ranged between 160 to 156. Calcium is 8.1. Other labs he had drawn in the emergency room are fairly otherwise unremarkable. Coags were INR 1.1 and PTT of 25, and his urinalysis is unremarkable. He did have a chest x-ray performed in the emergency room that showed negative for acute cardiopulmonary disease processes. A CT scan of the abdomen and pelvis was also performed and showed a hyperdense mass measuring 2.3 x 2.1 in the right lower pole of the kidney. Adrenals were unremarkable. There was some diverticulosis, some thickening of the rectum, and nonobstructive nephrolithiasis on the left side. He did have an MRI of the abdomen that has shown a solid mass in the right kidney measuring 2.2 cm, renal cell carcinoma not excluded, and mild right-sided hydronephrosis. ASSESSMENT AND PLAN: 1. Tachycardia. Reported sinus tachycardia rate of 150. No rhythm strips available. 2. Anemia. 3. Rectal bleeding. 4. Renal mass. 5. Hydronephrosis. 6. Prostate cancer history per report. 7. Multinodular goiter. 8. Osteoarthritis. 9. Diabetes mellitus. 10. Spinal stenosis and a cervical lesion. 11. History of coronary artery disease without angina. 12. Hyperlipidemia. 13. Hypothyroidism. Dr. Mcwilliams, this patient was seen in cardiac consultation. The patient does not have any signs or symptoms of acute coronary syndrome at this time. EKG has been negative. I will repeat cardiac enzymes. An echocardiogram will be ordered and the patient will be monitored. So far, no rhythms to suggest SVT, but we will follow up. Miguel Frank M.D. DR: DEV JOB#: [id number] CC:
[2020-06-21] VITALS (12 sets, daily range): BP systolic 122–168; BP diastolic 54–85
[2020-06-21] MEDS: D5 1/2NS w/KCl 20mEq 1,000 ML IV SCH ×2 (05:15→18:15)
[2020-06-21] MEDS: Levothyroxine 125mcg tab ORAL SCH (06:06)
[2020-06-21] MEDS: NovoLOG Insulin Flexpen SUBQ SCH ×4 (06:30→21:00)
[2020-06-21 08:21] LABS: BASOPHILS % (AUTO) 1.3 % (0.0-2.0); HEMATOCRIT 27.4 % (42.0-52.0); HEMOGLOBIN 8.8 G/DL (14.2-18.0); LYMPHOCYTES % (AUTO) 22.5 % (20.0-45.0); MEAN CORPUSCULAR VOLUME 88 FL (80-99); MONOCYTES % (AUTO) 5.5 % (1.0-10.0); NEUTROPHILS % (AUTO) 65.7 % (45.0-75.0); PLATELET COUNT 244 K/UL (150-450); RED CELL DISTRIBUTION WIDTH 14.5 % (11.6-14.8); WHITE BLOOD COUNT 9.1 K/UL (4.8-10.8)
[2020-06-21] MEDS: Ascorbic Acid 500mg tab ORAL SCH (09:13)
[2020-06-21 09:18] LABS: ALANINE AMINOTRANSFERASE 27 U/L (12-78); ALBUMIN 3.1 G/DL (3.4-5.0); ALBUMIN/GLOBULIN RATIO 1.3 (1.0-2.7); ALKALINE PHOSPHATASE 89 U/L (46-116); ANION GAP 7 mmol/L (5-15); ASPARTATE AMINO TRANSFERASE 23 U/L (15-37); BILIRUBIN,TOTAL 0.9 MG/DL (0.2-1.0); BLOOD UREA NITROGEN 5 mg/dL (7-18); CARBON DIOXIDE 28 MMOL/L (21-32); CHLORIDE 108 MMOL/L (98-107); CREATININE 0.8 MG/DL (0.55-1.30); LACTATE DEHYDROGENASE 190 U/L (81-234); PHOSPHORUS 2.7 MG/DL (2.5-4.9); POTASSIUM 3.6 MMOL/L (3.5-5.1); SODIUM 143 MMOL/L (136-145)
--- NOTE | 2020-06-21 11:17 | Pulmonology Progress Note ---
Subjective ROS Limited/Unobtainable: Yes Constitutional: Reports: no symptoms HEENT: Repors: no symptoms Respiratory: Reports: no symptoms Allergies: Coded Allergies: No Known Allergies (Unverified , 07/12/18) Objective Last 24 Hour Vital Signs Date Time Temp Pulse Resp B/P (MAP) Pulse Ox O2 Delivery O2 Flow Rate FiO2 06/21/20 09:00 Room Air 06/21/20 08:00 97.5 65 20 143/54 (83) 97 06/21/20 08:00 63 06/21/20 04:00 97.9 67 20 133/60 (84) 95 06/21/20 04:00 68 06/21/20 00:00 70 06/21/20 00:00 97.5 68 22 133/67 (89) 96 06/20/20 21:00 Room Air 06/20/20 20:00 69 06/20/20 20:00 96.5 75 22 128/68 (88) 97 06/20/20 16:00 65 06/20/20 16:00 97.7 69 20 160/65 (96) 97 06/20/20 12:00 98.1 68 18 141/62 (88) 96 06/20/20 12:00 63 Intake and Output 06/20/20 06/21/20 19:00 07:00 Intake Total 552.5 ml 806.25 ml Output Total 1300 ml 1100 ml Balance -747.5 ml -293.75 ml Intake Oral 360 ml IV Total 192.5 ml 806.25 ml Output Urine Total 1300 ml 1100 ml # Bowel Movements 6 General Appearance: WD/WN HEENT: normocephalic, atraumatic Respiratory: chest wall non-tender, lungs clear Cardiovascular: normal peripheral pulses, normal rate Abdomen: normal bowel sounds, soft, non tender Genitourinary: normal external genitalia Skin: no rash 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: 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 II-XII grossly normal Lymphatic: no neck adenopathy Microbiology Date/Time Source Procedure Growth Status 06/20/20 06:00 Rectum Received 06/18/20 12:20 Nasopharynx SARS-CoV-2 RdRp Gene Assay - Final Complete Laboratory Tests 06/20/20 16:24: POC Whole Blood Glucose 136H 06/20/20 18:20: Stool Occult Blood [Pending] 06/20/20 21:17: POC Whole Blood Glucose 126H 06/21/20 06:34: POC Whole Blood Glucose 137H 06/21/20 08:05: White Blood Count 9.1, Red Blood Count 3.10L, Hemoglobin 8.8L, Hematocrit 27.4L, Mean Corpuscular Volume 88, Mean Corpuscular Hemoglobin 28.5, Mean Corpuscular Hemoglobin Concent 32.2, Red Cell Distribution Width 14.5, Platelet Count 244#, Mean Platelet Volume 8.0, Neutrophils (%) (Auto) 65.7, Lymphocytes (%) (Auto) 22.5, Monocytes (%) (Auto) 5.5, Eosinophils (%) (Auto) 5.0H, Basophils (%) (Auto) 1.3, Erythrocyte Sedimentation Rate 64H, Reticulocyte Count [Pending], Sodium Level 143, Potassium Level 3.6, Chloride Level 108H, Carbon Dioxide Level 28, Anion Gap 7, Blood Urea Nitrogen 5L, Creatinine 0.8, Estimat Glomerular Filtration Rate > 60, Glucose Level 139H, Calcium Level 8.0L, Phosphorus Level 2.7, Magnesium Level 1.9, Total Bilirubin 0.9, Aspartate Amino Transf (AST/SGOT) 23, Alanine Aminotransferase (ALT/SGPT) 27, Alkaline Phosphatase 89, Lactate Dehydrogenase 190, Troponin I 0.010, Pro-B-Type Natriuretic Peptide 163H, Total Protein 5.4L, Albumin 3.1L, Globulin 2.3, Albumin/Globulin Ratio 1.3 Current Medications Medications (Trade) Dose Ordered Sig/Amanda Route PRN Reason Start Time Stop Time Status Last Admin Dose Admin Acetaminophen (Tylenol) 650 mg Q4H PRN ORAL fever 06/18/20 13:00 07/18/20 12:59 Acetaminophen (Tylenol) 650 mg Q4H PRN ORAL Mild Pain (Pain Scale 1-3) 06/18/20 17:45 07/18/20 17:44 Acetaminophen/ Hydrocodone Bitart (Monon 5/325) 1 tab Q4H PRN ORAL Moderate Pain (Pain Scale 4-6) 06/18/20 17:45 06/25/20 17:44 Acetaminophen/ Hydrocodone Bitart (Monon 5/325) 2 tab Q4H PRN ORAL Severe Pain (Pain Scale 7-10) 06/18/20 17:45 06/25/20 17:44 Al Hydroxide/Mg Hydroxide (Mylanta II) 30 ml Q4H PRN ORAL STOMACH UPSET 06/18/20 17:45 07/18/20 17:44 Ascorbic Acid (Vitamin C) 500 mg DAILY ORAL 06/19/20 09:00 07/19/20 08:59 06/21/20 09:13 Atorvastatin Calcium (Lipitor) 80 mg BEDTIME ORAL 06/18/20 21:00 09/16/20 20:59 06/20/20 21:08 Dextrose (Dextrose 50%) 25 ml Q30M PRN IV Hypoglycemia 06/18/20 13:00 09/16/20 12:59 Dextrose (Dextrose 50%) 50 ml Q30M PRN IV Hypoglycemia 06/18/20 13:00 09/16/20 12:59 Dextrose/ Electrolytes 1,000 ml @ 75 mls/hr [id number] IV 06/20/20 16:00 07/20/20 15:59 06/21/20 05:15 Diphenhydramine HCl (Benadryl) 25 mg Q6H PRN ORAL Itching/Pruritis 06/18/20 13:00 07/18/20 12:59 Fluoxetine HCl (PROzac) 40 mg DAILY ORAL 06/19/20 09:00 07/19/20 08:59 06/21/20 09:12 Gabapentin (Neurontin) 1,200 mg TWICE A DAY ORAL 06/18/20 18:00 07/18/20 17:59 06/21/20 09:13 Gadobutrol (Gadavist) 7.5 mmol NOW PRN IV Radiology Procedure 06/20/20 09:45 06/24/20 09:44 Insulin Aspart (NovoLOG) BEFORE MEALS AND HS SUBQ 06/18/20 16:30 09/16/20 16:29 06/19/20 21:13 Levothyroxine Sodium (Synthroid) 125 mcg ACBREAKFAST ORAL 06/19/20 06:30 07/19/20 06:29 06/21/20 06:06 Magnesium Hydroxide (Mom) 30 ml DAILYPRN PRN ORAL Constipation 06/18/20 17:45 07/18/20 17:44 Metoprolol Tartrate (Lopressor) 10 mg Q4H PRN IVP HR>120 06/19/20 17:15 09/17/20 17:14 Nitroglycerin (Ntg) 0.4 mg Q5M X 3 DOSES PRN SL Prn Chest Pain 06/18/20 13:00 07/18/20 12:59 Ondansetron HCl (Zofran) 4 mg Q6H PRN IVP Nausea & Vomiting 06/18/20 13:00 07/18/20 12:59 Polyethylene Glycol (Miralax) 17 gm HSPRN PRN ORAL Constipation 06/18/20 13:00 07/18/20 12:59 Zolpidem Tartrate (Ambien) 5 mg HSPRN PRN ORAL Insomnia 06/18/20 17:45 06/25/20 17:44 Assessment/Plan Problems: (1) Rectal bleeding (2) Renal mass (3) History of diabetes mellitus (4) Hx of essential hypertension Assessment/Plan MRI of kidney":Solid mass in the lower pole of the right kidney measuring approximately 2.2 cm. Renal cell carcinoma not excluded. continue NPO for endoscopy today H2 blockers iv fluids sliding scale prbc prn check electrolytes surgical evaluation appreciated dvt prophylaxis symptomatic treatment Francisco Javier Real MD Jun 21, 2020 11:17
--- NOTE | 2020-06-21 12:11 | Pre-Procedure Note/Attestation ---
Pre-Procedure Note/Attestation Complete Prior to Procedure Planned Procedure: not applicable Procedure Narrative: esophagogastroduodenoscopy and colonoscopy Indications for Procedure Pre-Operative Diagnosis: gib Attestation I attest that I discussed the nature of the procedure; its benefits; risks and complications; and alternatives (and the risks and benefits of such alternatives), prior to the procedure, with the patient (or the patient's legal medical collections representative). I attest that, if there was a reasonable possibility of needing a blood transfusion, the patient (or the patient's legal medical collections representative) was given the [facility] [place] [facility] standardized written summary, pursuant to the [place] Blood Safety Act ([place] Health and Safety Code # 1645, as amended). I attest that I re-evaluated the patient just prior to the surgery and that there has been no change in the patient's H&P, except as documented below: Hunter Cedeno MD Jun 21, 2020 12:11
[2020-06-21] MEDS ORDERED: NS 500ML IVPB ONE (12:22)
--- NOTE | 2020-06-21 12:44 | Endoscopy Procedure Note ---
Endoscopy Procedure Note General Indication for Procedure: gib Procedures Performed: EGD, colonoscopy Operative Findings/Diagnosis: diverticulosis Specimen: yes Pt Tolerated Procedure Well: Yes Estimated Blood Loss: none Anesthesia Anesthesiologist: ricco Anesthesia: MAC Inserted Devices Implant(s) used?: No Quality Quality of Bowel Preparation: Fair Did scope reach the cecum?: Yes Was there any complications?: No GI Core Measures 50 yrs or older w/o bx or poly: Not Applicable 10yrs. F/U recommended: Not Applicable Hunter Cedeno MD Jun 21, 2020 12:44
--- NOTE | 2020-06-21 12:55 | Immediate Post-Op Evaluation ---
Immediate Post-Op Evalulation Immediate Post-Op Evalulation Procedure: EGD Colonoscopy Date of Evaluation: Jun 21, 2020 Time of Evaluation: 12:53 IV Fluids: 300 Blood Products: none Estimated Blood Loss: none Urinary Output: none Blood Pressure Systolic: 156 Blood Pressure Diastolic: 78 Pulse Rate: 62 Respiratory Rate: 18 O2 Sat by Pulse Oximetry: 99 Temperature (Fahrenheit): 98.4 Pain Score (1-10): 1 Nausea: No Vomiting: No Complications none Patient Status: reacts, patent, none Hydration Status: adequate Nathen House MD Jun 21, 2020 12:55
--- NOTE | 2020-06-21 13:30 | Procedure Note ---
DATE OF PROCEDURE: 06/21/2020 SURGEON: Hunter Cedeno MD. PROCEDURE: Upper endoscopy with biopsy and colonoscopy. ANESTHESIA: Per Dr. Nathen House. INSTRUMENT: Olympus adult flexible endoscope and colonoscope. REASON FOR PROCEDURE: The procedure, risks, benefits, and possible consequences, including hemorrhage, aspiration, perforation and infection, and alternative treatments, were explained to the patient/legal guardian by Dr. Hunter Cedeno and the patient/legal guardian understood and accepted these risks. INDICATION: GI bleeding. DESCRIPTION OF PROCEDURE: After informed consent was obtained and the patient was adequately sedated, Olympus upper endoscope was advanced from mouth into the second portion of duodenum and retroflexion was performed in the stomach. The patient has evidence of a submucosal lesion in the proximal body of the stomach, highly suspicious for maybe a . Biopsy from this submucosal lesion was obtained. Also the patient has evidence of diffuse gastritis. Random biopsy from antrum was obtained to rule out H. pylori infection. At this time, the upper endoscope was retrieved and the patient was turned over for colonoscopy. First, rectal examination was performed, which was positive for internal hemorrhoids. Then, the scope was advanced from rectum into the cecum. Quality of prep was fair. The patient has significant diverticulosis both in the right and left colon without any active bleeding. Retroflexion of rectum was performed showed evidence of internal hemorrhoids. SUMMARY OF FINDINGS: 1. Gastric submucosal lesion, see above for details, status post biopsy. 2. Gastritis, status post biopsy. 3. Significant diverticulosis. 4. Internal hemorrhoids. RECOMMENDATIONS: 1. Resume diet. 2. Follow labs. 3. Follow biopsy results. 4. The patient is to get outpatient followup for possible EUS for the gastric submucosal lesion. I want to thank Dr. Jeff Jarvis, for this kind referral. Hunter Cedeno M.D. DR: AMANUEL JOB#: [id number] CC: Jeff Jarvis MD.; Fax#: [phone]
--- NOTE | 2020-06-21 16:37 | Surgery Progress Note ---
Surgery Progress Note Subjective Additional Comments no active bleeding no n/v scope results noted Objective Last 24 Hour Vital Signs Date Time Temp Pulse Resp B/P (MAP) Pulse Ox O2 Delivery O2 Flow Rate FiO2 06/21/20 13:10 97.3 68 20 156/85 97 Nasal Cannula 3 06/21/20 13:05 63 15 142/78 98 Nasal Cannula 3 06/21/20 13:00 65 17 168/76 100 Nasal Cannula 3 06/21/20 12:55 61 16 144/79 97 Nasal Cannula 3 06/21/20 12:55 62 18 99 06/21/20 12:50 66 18 156/77 99 Nasal Cannula 3 06/21/20 12:46 98.4 76 20 142/76 98 Nasal Cannula 3 06/21/20 12:00 97.0 67 18 158/68 (98) 98 06/21/20 09:00 Room Air 06/21/20 08:00 97.5 65 20 143/54 (83) 97 06/21/20 08:00 63 06/21/20 04:00 97.9 67 20 133/60 (84) 95 06/21/20 04:00 68 06/21/20 00:00 70 06/21/20 00:00 97.5 68 22 133/67 (89) 96 06/20/20 21:00 Room Air 06/20/20 20:00 69 06/20/20 20:00 96.5 75 22 128/68 (88) 97 I&O Intake and Output 06/20/20 06/21/20 19:00 07:00 Intake Total 552.5 ml 806.25 ml Output Total 1300 ml 1100 ml Balance -747.5 ml -293.75 ml Intake Oral 360 ml IV Total 192.5 ml 806.25 ml Output Urine Total 1300 ml 1100 ml # Bowel Movements 6 Cardiovascular: RSR Respiratory: clear Abdomen: soft, flat, non-tender, present bowel sounds Extremities: no edema, no tenderness, no cyanosis Laboratory Tests Test 06/20/20 18:20 06/20/20 21:17 06/21/20 06:34 06/21/20 08:05 Stool Occult Blood Positive (NEGATIVE) POC Whole Blood Glucose 126 MG/DL (74-106) H 137 MG/DL (74-106) H White Blood Count 9.1 K/UL (4.8-10.8) Red Blood Count 3.10 M/UL (4.70-6.10) L Hemoglobin 8.8 G/DL (14.2-18.0) L Hematocrit 27.4 % (42.0-52.0) L Mean Corpuscular Volume 88 FL (80-99) Mean Corpuscular Hemoglobin 28.5 PG (27.0-31.0) Mean Corpuscular Hemoglobin Concent 32.2 G/DL (32.0-36.0) Red Cell Distribution Width 14.5 % (11.6-14.8) Platelet Count 244 K/UL (150-450) # Mean Platelet Volume 8.0 FL (6.5-10.1) Neutrophils (%) (Auto) 65.7 % (45.0-75.0) Lymphocytes (%) (Auto) 22.5 % (20.0-45.0) Monocytes (%) (Auto) 5.5 % (1.0-10.0) Eosinophils (%) (Auto) 5.0 % (0.0-3.0) H Basophils (%) (Auto) 1.3 % (0.0-2.0) Erythrocyte Sedimentation Rate 64 MM/HR (0-20) H Reticulocyte Count 1.0 % (0.5-2.0) Sodium Level 143 MMOL/L (136-145) Potassium Level 3.6 MMOL/L (3.5-5.1) Chloride Level 108 MMOL/L (98-107) H Carbon Dioxide Level 28 MMOL/L (21-32) Anion Gap 7 mmol/L (5-15) Blood Urea Nitrogen 5 mg/dL (7-18) L Creatinine 0.8 MG/DL (0.55-1.30) Estimat Glomerular Filtration Rate > 60 mL/min (>60) Glucose Level 139 MG/DL (74-106) H Calcium Level 8.0 MG/DL (8.5-10.1) L Phosphorus Level 2.7 MG/DL (2.5-4.9) Magnesium Level 1.9 MG/DL (1.8-2.4) Total Bilirubin 0.9 MG/DL (0.2-1.0) Aspartate Amino Transf (AST/SGOT) 23 U/L (15-37) Alanine Aminotransferase (ALT/SGPT) 27 U/L (12-78) Alkaline Phosphatase 89 U/L (46-116) Lactate Dehydrogenase 190 U/L (81-234) Troponin I 0.010 ng/mL (0.000-0.056) Pro-B-Type Natriuretic Peptide 163 pg/mL (0-125) H Total Protein 5.4 G/DL (6.4-8.2) L Albumin 3.1 G/DL (3.4-5.0) L Globulin 2.3 g/dL Albumin/Globulin Ratio 1.3 (1.0-2.7) Test 06/21/20 11:33 POC Whole Blood Glucose 116 MG/DL (74-106) H Plan Problems: (1) Rectal bleeding Assessment & Plan: 80M bright red blood per rectum. on eval in ED noted to have blood loose diarrhea incontinence. labs noted. abd exam benign. npo iv fluids ct a/p with contrast ordered eval mass, diverticulum, lesion gi consult serial h/h MRI noted. urology consult eval RCC will follow with exam and recs SUMMARY OF FINDINGS: 1. Gastric submucosal lesion, see above for details, status post biopsy. 2. Gastritis, status post biopsy. 3. Significant diverticulosis. 4. Internal hemorrhoids. RECOMMENDATIONS: 1. Resume diet. 2. Follow labs. 3. Follow biopsy results. 4. The patient is to get outpatient followup for possible EUS for the gastric submucosal lesion. There is a questioned mass in the right kidney demonstrates signal hypointensity on T2 imaging. On postcontrast imaging this mass is noted to enhance fairly uniformly. This mass measures approximately 2.3 x 2.1 x 2.3 cm. There is relative washout of enhancement of the mass compared to the adjacent normal renal parenchyma on more delayed postcontrast imaging. There has been interval development of mild right-sided hydronephrosis, likely related to degree of obstruction from the right ureteral stone noted on prior CT. Known nonobstructing stone in the lower pole the left kidney better appreciated on concurrent CT. No evidence of hydronephrosis on the left. Hepatic signal is homogeneous. No gallstones or pericholecystic inflammatory changes appreciated. Abdominal aorta normal in caliber. Spleen demonstrates normal homogenous signal. Adrenal glands unremarkable. Pancreas unremarkable. IMPRESSION: Solid mass in the lower pole of the right kidney measuring approximately 2.2 cm. Renal cell carcinoma not excluded. Urology follow-up recommended. Interval development of mild right-sided hydronephrosis, likely related to a degree of obstruction from right ureteral calculus better seen on prior CT. Lower chest:: Left greater than right bibasilar subsegmental atelectasis. Mild cardiomegaly. Hepatobiliary:: Genitourinary:: In the right lower renal pole, there is a hyperdense mass me asuring 2.3 x 2.1 cm. There is a 10 mm left lower pole renal calculus. No hydronephrosis. Mild prostatomegaly. Adrenals:: Unremarkable. Pancreas:: Unremarkable. Gastrointestinal:: No evidence of obstruction. There is extensive colonic diverticulosis without evidence of acute diverticulitis. Appendix is normal. There is mild eccentric wall thickening of the rectum (4:78). Spleen: : Unremarkable. Peritoneum:: There is rectus sheath muscle diastases with broad-based herniation of the lower abdominal wall containing multiple nonobstructed loops of bowel. Bones and soft tissues:: There are multilevel discogenic degenerative changes of the visualized spine. IMPRESSION: 1. Mild eccentric wall thickening of the rectum, which may be be inflammatory/reactive, due to partial underdistention, or reflective adherent stool. Recommend correlation with recent colonoscopy. 2. Colonic diverticulosis without evidence of acute diverticulitis 3. Nonobstructing left nephrolithiasis. 4. Hyperdense right lower pole renal mass, which could reflect complex/hemorrhagic cyst, but enhancing lesion such as neoplasm is not excluded. Recommend follow-up on nonemergent basis with contrast-enhanced MRI or CT (renal protocol) for more complete characterization. (2) History of diabetes mellitus Jonatan Hurtado Jun 21, 2020 16:37
--- NOTE | 2020-06-21 20:16 | Internal Med Progress Note ---
Subjective Physician Name Jeff Jarvis Attending Physician Jeff Jarvis MD Current Medications Medications (Trade) Dose Ordered Sig/Amanda Route PRN Reason Start Time Stop Time Status Last Admin Dose Admin Acetaminophen (Tylenol) 650 mg Q4H PRN ORAL fever 06/18/20 13:00 07/18/20 12:59 Acetaminophen (Tylenol) 650 mg Q4H PRN ORAL Mild Pain (Pain Scale 1-3) 06/18/20 17:45 07/18/20 17:44 Acetaminophen/ Hydrocodone Bitart ([place] 5/325) 1 tab Q4H PRN ORAL Moderate Pain (Pain Scale 4-6) 06/18/20 17:45 06/25/20 17:44 06/21/20 18:12 Acetaminophen/ Hydrocodone Bitart ([place] 5/325) 2 tab Q4H PRN ORAL Severe Pain (Pain Scale 7-10) 06/18/20 17:45 06/25/20 17:44 Al Hydroxide/Mg Hydroxide (Mylanta II) 30 ml Q4H PRN ORAL STOMACH UPSET 06/18/20 17:45 07/18/20 17:44 Ascorbic Acid (Vitamin C) 500 mg DAILY ORAL 06/19/20 09:00 07/19/20 08:59 06/21/20 09:13 Atorvastatin Calcium (Lipitor) 80 mg BEDTIME ORAL 06/18/20 21:00 09/16/20 20:59 06/20/20 21:08 Dextrose (Dextrose 50%) 25 ml Q30M PRN IV Hypoglycemia 06/18/20 13:00 09/16/20 12:59 Dextrose (Dextrose 50%) 50 ml Q30M PRN IV Hypoglycemia 06/18/20 13:00 09/16/20 12:59 Dextrose/ Electrolytes 1,000 ml @ 75 mls/hr [id number] IV 06/20/20 16:00 07/20/20 15:59 06/21/20 18:15 Diphenhydramine HCl (Benadryl) 25 mg Q6H PRN ORAL Itching/Pruritis 06/18/20 13:00 07/18/20 12:59 Fluoxetine HCl (PROzac) 40 mg DAILY ORAL 06/19/20 09:00 07/19/20 08:59 06/21/20 09:12 Gabapentin (Neurontin) 1,200 mg TWICE A DAY ORAL 06/18/20 18:00 07/18/20 17:59 06/21/20 18:06 Gadobutrol (Gadavist) 7.5 mmol NOW PRN IV Radiology Procedure 06/20/20 09:45 06/24/20 09:44 Insulin Aspart (NovoLOG) BEFORE MEALS AND HS SUBQ 06/18/20 16:30 09/16/20 16:29 06/19/20 21:13 Levothyroxine Sodium (Synthroid) 125 mcg ACBREAKFAST ORAL 06/19/20 06:30 07/19/20 06:29 06/21/20 06:06 Magnesium Hydroxide (Mom) 30 ml DAILYPRN PRN ORAL Constipation 06/18/20 17:45 07/18/20 17:44 Metoprolol Tartrate (Lopressor) 10 mg Q4H PRN IVP HR>120 06/19/20 17:15 09/17/20 17:14 Nitroglycerin (Ntg) 0.4 mg Q5M X 3 DOSES PRN SL Prn Chest Pain 06/18/20 13:00 07/18/20 12:59 Ondansetron HCl (Zofran) 4 mg Q6H PRN IVP Nausea & Vomiting 06/18/20 13:00 07/18/20 12:59 Polyethylene Glycol (Miralax) 17 gm HSPRN PRN ORAL Constipation 06/18/20 13:00 07/18/20 12:59 Zolpidem Tartrate (Ambien) 5 mg HSPRN PRN ORAL Insomnia 06/18/20 17:45 06/25/20 17:44 Allergies: Coded Allergies: No Known Allergies (Unverified , 07/12/18) Subjective awake, alert, responsive, NAD, mild SOB on Oxygen Via NC Objective Last Vital Signs Date Time Temp Pulse Resp B/P (MAP) Pulse Ox O2 Delivery O2 Flow Rate FiO2 06/21/20 16:00 96.9 56 20 132/69 (90) 97 06/21/20 13:10 Nasal Cannula 3 Laboratory Tests Test 06/20/20 21:17 06/21/20 06:34 06/21/20 08:05 06/21/20 11:33 POC Whole Blood Glucose 126 MG/DL (74-106) H 137 MG/DL (74-106) H 116 MG/DL (74-106) H White Blood Count 9.1 K/UL (4.8-10.8) Red Blood Count 3.10 M/UL (4.70-6.10) L Hemoglobin 8.8 G/DL (14.2-18.0) L Hematocrit 27.4 % (42.0-52.0) L Mean Corpuscular Volume 88 FL (80-99) Mean Corpuscular Hemoglobin 28.5 PG (27.0-31.0) Mean Corpuscular Hemoglobin Concent 32.2 G/DL (32.0-36.0) Red Cell Distribution Width 14.5 % (11.6-14.8) Platelet Count 244 K/UL (150-450) # Mean Platelet Volume 8.0 FL (6.5-10.1) Neutrophils (%) (Auto) 65.7 % (45.0-75.0) Lymphocytes (%) (Auto) 22.5 % (20.0-45.0) Monocytes (%) (Auto) 5.5 % (1.0-10.0) Eosinophils (%) (Auto) 5.0 % (0.0-3.0) H Basophils (%) (Auto) 1.3 % (0.0-2.0) Erythrocyte Sedimentation Rate 64 MM/HR (0-20) H Reticulocyte Count 1.0 % (0.5-2.0) Sodium Level 143 MMOL/L (136-145) Potassium Level 3.6 MMOL/L (3.5-5.1) Chloride Level 108 MMOL/L (98-107) H Carbon Dioxide Level 28 MMOL/L (21-32) Anion Gap 7 mmol/L (5-15) Blood Urea Nitrogen 5 mg/dL (7-18) L Creatinine 0.8 MG/DL (0.55-1.30) Estimat Glomerular Filtration Rate > 60 mL/min (>60) Glucose Level 139 MG/DL (74-106) H Calcium Level 8.0 MG/DL (8.5-10.1) L Phosphorus Level 2.7 MG/DL (2.5-4.9) Magnesium Level 1.9 MG/DL (1.8-2.4) Total Bilirubin 0.9 MG/DL (0.2-1.0) Aspartate Amino Transf (AST/SGOT) 23 U/L (15-37) Alanine Aminotransferase (ALT/SGPT) 27 U/L (12-78) Alkaline Phosphatase 89 U/L (46-116) Lactate Dehydrogenase 190 U/L (81-234) Troponin I 0.010 ng/mL (0.000-0.056) Pro-B-Type Natriuretic Peptide 163 pg/mL (0-125) H Total Protein 5.4 G/DL (6.4-8.2) L Albumin 3.1 G/DL (3.4-5.0) L Globulin 2.3 g/dL Albumin/Globulin Ratio 1.3 (1.0-2.7) Test 06/21/20 16:32 POC Whole Blood Glucose 113 MG/DL (74-106) H Microbiology Date/Time Source Procedure Growth Status 06/20/20 06:00 Rectum Received Intake and Output 06/20/20 06/21/20 19:00 07:00 Intake Total 552.5 ml 806.25 ml Output Total 1300 ml 1100 ml Balance -747.5 ml -293.75 ml Intake Oral 360 ml IV Total 192.5 ml 806.25 ml Output Urine Total 1300 ml 1100 ml # Bowel Movements 6 Objective General: No acute distress, awake and alert, on O2 via NC. HEENT: NCAT, sclera anicteric, PERRL, EOMI. Neck: Supple, no significant jugular venous distention, Lungs: Fair inspiratory effort, decrease air at bases, no Wheeze or Rales. Heart: Regular rate and rhythm, normal S1/S2, no murmurs/gallops Abdomen: soft, nontender, nondistended. Normoactive bowel sounds, morbid obesi ty. Extremities: No Cyanosis , clubbing +1 LE's edema. Neuro: A&O x 3, Able to move all extremities, UE 5/5, LE 3/5 motor. Skin: warm, no rash. Psych: Normal mood and affect Assessment/Plan Assessment/Plan ASSESSMENT: This is a 80-year-old male. 1. Lower gastrointestinal hemorrhage. 2. Diabetes type 2. 3. Hypertension. 4. Prostate cancer. 5. Benign prostatic hypertrophy. 6. Coronary artery disease. 7. Hypercholesterolemia. 8. Hypothyroidism. 9. Sinus tachycardia 10. Right Renal mass possible Renal Cell Carcinoma. TREATMENT: 1. Lower gastrointestinal hemorrhage/rectal bleeding. CT=diverticulosis. Gastroenterology consultation = Dr. Hunter Cedeno. 2. Diabetes type 2. Continue NovoLog sliding scale. 3. Hypertension. Continue metoprolol 4. Coronary artery disease. 5. Hypercholesterolemia. Continue atorvastatin as above. 6. Hypothyroidism. Continue Synthroid as above. 7. Benign prostatic hypertrophy. 8. Cardiology=Dr Frank DVT prophylax: SCD PT Mobility Monitor Labs EGD / Colonoscopy: (06/21/2020) 1. Gastric submucosal lesion, see above for details, status post biopsy. 2. Gastritis, status post biopsy. 3. Significant diverticulosis. 4. Internal hemorrhoids. RECOMMENDATIONS: 1. Resume diet. 2. Follow labs. 3. Follow biopsy results. 4. The patient is to get outpatient followup for possible EUS for the gastric submucosal lesion. MRI abdomen: Solid mass in the lower pole of the right kidney measuring approximately 2.2 cm. Renal cell carcinoma not excluded. Jeff Jarvis MD Jun 21, 2020 20:16
[2020-06-21] MEDS: Atorvastatin 80mg tab ORAL SCH (20:58)
[2020-06-22] VITALS: BP 117/60
[2020-06-22 04:00] VITALS: BP 129/72
[2020-06-22] MEDS: Levothyroxine 125mcg tab ORAL SCH (05:54)
[2020-06-22] MEDS: NovoLOG Insulin Flexpen SUBQ SCH ×4 (05:54→21:24)
[2020-06-22 08:00] VITALS: BP 134/62
--- NOTE | 2020-06-22 08:45 | General Progress Note ---
Subjective ROS Limited/Unobtainable: Yes Allergies: Coded Allergies: No Known Allergies (Unverified , 07/12/18) Objective Last 24 Hour Vital Signs Date Time Temp Pulse Resp B/P (MAP) Pulse Ox O2 Delivery O2 Flow Rate FiO2 06/22/20 04:00 58 06/22/20 04:00 97.5 59 18 129/72 (91) 98 06/22/20 00:00 55 06/22/20 00:00 96.6 63 18 117/60 (79) 100 06/21/20 21:00 Room Air 06/21/20 20:00 63 06/21/20 20:00 97.5 64 18 122/66 (84) 97 06/21/20 16:00 96.9 56 20 132/69 (90) 97 06/21/20 16:00 57 06/21/20 13:10 97.3 68 20 156/85 97 Nasal Cannula 3 06/21/20 13:05 63 15 142/78 98 Nasal Cannula 3 06/21/20 13:00 65 17 168/76 100 Nasal Cannula 3 06/21/20 12:55 61 16 144/79 97 Nasal Cannula 3 06/21/20 12:55 62 18 99 06/21/20 12:50 66 18 156/77 99 Nasal Cannula 3 06/21/20 12:46 98.4 76 20 142/76 98 Nasal Cannula 3 06/21/20 12:00 97.0 67 18 158/68 (98) 98 06/21/20 12:00 68 06/21/20 09:00 Room Air Intake and Output 06/21/20 06/22/20 19:00 07:00 Intake Total 176.25 ml 1185 ml Output Total 800 ml 550 ml Balance -623.75 ml 635 ml Intake Oral 120 ml 360 ml IV Total 56.25 ml 825 ml Output Urine Total 800 ml 550 ml # Bowel Movements 3 1 Laboratory Tests 06/21/20 11:33: POC Whole Blood Glucose 116H 06/21/20 16:32: POC Whole Blood Glucose 113H 06/21/20 21:04: POC Whole Blood Glucose 139H 06/22/20 05:53: POC Whole Blood Glucose 121H Height (Feet): 6 Height (Inches): 0.80 Weight (Pounds): 238 General Appearance: no apparent distress EENT: normal ENT inspection Neck: supple Cardiovascular: normal rate Respiratory/Chest: decreased breath sounds Abdomen: normal bowel sounds, non tender, soft Extremities: non-tender Assessment/Plan Problem List: (1) LGI bleed ICD Codes: K92.2 - Gastrointestinal hemorrhage, unspecified SNOMED: 15323191 (2) History of diabetes mellitus ICD Codes: Z86.39 - Personal history of other endocrine, nutritional and metabolic disease SNOMED: 387745041 (3) Rectal bleeding ICD Codes: K62.5 - Hemorrhage of anus and rectum SNOMED: 96172106 Assessment/Plan: s/p EGD and colonoscopy: SUMMARY OF FINDINGS: 1. Gastric submucosal lesion, see above for details, status post biopsy. 2. Gastritis, status post biopsy. 3. Significant diverticulosis. 4. Internal hemorrhoids. stable H&H needs out patient Hunter Victor MD Jun 22, 2020 08:45
[2020-06-22] MEDS: D5 1/2NS w/KCl 20mEq 1,000 ML IV SCH ×2 (09:14→21:22)
[2020-06-22] MEDS: Ascorbic Acid 500mg tab ORAL SCH (09:15)
--- NOTE | 2020-06-22 11:23 | Surgery Progress Note ---
Surgery Progress Note Subjective Additional Comments h/h stable comfortable gomez no n/v labs noted Objective Last 24 Hour Vital Signs Date Time Temp Pulse Resp B/P (MAP) Pulse Ox O2 Delivery O2 Flow Rate FiO2 06/22/20 09:00 Room Air 06/22/20 08:00 97.7 60 20 134/62 (86) 99 06/22/20 08:00 66 06/22/20 04:00 58 06/22/20 04:00 97.5 59 18 129/72 (91) 98 06/22/20 00:00 55 06/22/20 00:00 96.6 63 18 117/60 (79) 100 06/21/20 21:00 Room Air 06/21/20 20:00 63 06/21/20 20:00 97.5 64 18 122/66 (84) 97 06/21/20 16:00 96.9 56 20 132/69 (90) 97 06/21/20 16:00 57 06/21/20 13:10 97.3 68 20 156/85 97 Nasal Cannula 3 06/21/20 13:05 63 15 142/78 98 Nasal Cannula 3 06/21/20 13:00 65 17 168/76 100 Nasal Cannula 3 06/21/20 12:55 61 16 144/79 97 Nasal Cannula 3 06/21/20 12:55 62 18 99 06/21/20 12:50 66 18 156/77 99 Nasal Cannula 3 06/21/20 12:46 98.4 76 20 142/76 98 Nasal Cannula 3 06/21/20 12:00 97.0 67 18 158/68 (98) 98 06/21/20 12:00 68 I&O Intake and Output 06/21/20 06/22/20 19:00 07:00 Intake Total 176.25 ml 1185 ml Output Total 800 ml 550 ml Balance -623.75 ml 635 ml Intake Oral 120 ml 360 ml IV Total 56.25 ml 825 ml Output Urine Total 800 ml 550 ml # Bowel Movements 3 1 Cardiovascular: RSR Respiratory: decreased breath sounds Abdomen: soft, non-tender, present bowel sounds Extremities: no edema, no tenderness, no cyanosis Laboratory Tests Test 06/21/20 11:33 06/21/20 16:32 06/21/20 21:04 06/22/20 05:53 POC Whole Blood Glucose 116 MG/DL (74-106) H 113 MG/DL (74-106) H 139 MG/DL (74-106) H 121 MG/DL (74-106) H Plan Problems: (1) Rectal bleeding Assessment & Plan: 80M bright red blood per rectum. on eval in ED noted to have blood loose diarrhea incontinence. labs noted. abd exam benign. npo iv fluids ct a/p with contrast ordered eval mass, diverticulum, lesion gi consult serial h/h MRI noted. urology consult eval RCC will follow with exam and recs SUMMARY OF FINDINGS: 1. Gastric submucosal lesion, see above for details, status post biopsy. 2. Gastritis, status post biopsy. 3. Significant diverticulosis. 4. Internal hemorrhoids. RECOMMENDATIONS: 1. Resume diet. 2. Follow labs. 3. Follow biopsy results. 4. The patient is to get outpatient followup for possible EUS for the gastric submucosal lesion. There is a questioned mass in the right kidney demonstrates signal hypointensity on T2 imaging. On postcontrast imaging this mass is noted to enhance fairly uniformly. This mass measures approximately 2.3 x 2.1 x 2.3 cm. There is relative washout of enhancement of the mass compared to the adjacent normal renal parenchyma on more delayed postcontrast imaging. There has been interval development of mild right-sided hydronephrosis, likely related to degree of obstruction from the right ureteral stone noted on prior CT. Known nonobstructing stone in the lower pole the left kidney better appreciated on concurrent CT. No evidence of hydronephrosis on the left. Hepatic signal is homogeneous. No gallstones or pericholecystic inflammatory changes appreciated. Abdominal aorta normal in caliber. Spleen demonstrates normal homogenous signal. Adrenal glands unremarkable. Pancreas unremarkable. IMPRESSION: Solid mass in the lower pole of the right kidney measuring approximately 2.2 cm. Renal cell carcinoma not excluded. Urology follow-up recommended. Interval development of mild right-sided hydronephrosis, likely related to a degree of obstruction from right ureteral calculus better seen on prior CT. Lower chest:: Left greater than right bibasilar subsegmental atelectasis. Mild cardiomegaly. Hepatobiliary:: Genitourinary:: In the right lower renal pole, there is a hyperdense mass measuring 2.3 x 2.1 cm. There is a 10 mm left lower pole renal calculus. No hydronephrosis. Mild prostatomegaly. Adrenals:: Unremarkable. Pancreas:: Unremarkable. Gastrointestinal:: No evidence of obstruction. There is extensive colonic diverticulosis without evidence of acute diverticulitis. Appendix is normal. There is mild eccentric wall thickening of the rectum (4:78). Spleen: : Unremarkable. Peritoneum:: There is rectus sheath muscle diastases with broad-based herniation of the lower abdominal wall containing multiple nonobstructed loops of bowel. Bones and soft tissues:: There are multilevel discogenic degenerative changes of the visualized spine. IMPRESSION: 1. Mild eccentric wall thickening of the rectum, which may be be inflammatory/reactive, due to partial underdistention, or reflective adherent stool. Recommend correlation with recent colonoscopy. 2. Colonic diverticulosis without evidence of acute diverticulitis 3. Nonobstructing left nephrolithiasis. 4. Hyperdense right lower pole renal mass, which could reflect complex/hemorrhagic cyst, but enhancing lesion such as neoplasm is not excluded. Recommend follow-up on nonemergent basis with contrast-enhanced MRI or CT (renal protocol) for more complete characterization. (2) History of diabetes mellitus Jonatan Hurtado Jun 22, 2020 11:23
[2020-06-22 12:00] VITALS: BP 151/69
[2020-06-22] MEDS ORDERED: fentaNYL 100 mcg/2 mL IV ONE (12:00)
--- NOTE | 2020-06-22 12:57 | Pulmonology Progress Note ---
Subjective ROS Limited/Unobtainable: Yes Constitutional: Reports: no symptoms HEENT: Repors: no symptoms Respiratory: Reports: no symptoms Allergies: Coded Allergies: No Known Allergies (Unverified , 07/12/18) Objective Last 24 Hour Vital Signs Date Time Temp Pulse Resp B/P (MAP) Pulse Ox O2 Delivery O2 Flow Rate FiO2 06/22/20 09:00 Room Air 06/22/20 08:00 97.7 60 20 134/62 (86) 99 06/22/20 08:00 66 06/22/20 04:00 58 06/22/20 04:00 97.5 59 18 129/72 (91) 98 06/22/20 00:00 55 06/22/20 00:00 96.6 63 18 117/60 (79) 100 06/21/20 21:00 Room Air 06/21/20 20:00 63 06/21/20 20:00 97.5 64 18 122/66 (84) 97 06/21/20 16:00 96.9 56 20 132/69 (90) 97 06/21/20 16:00 57 06/21/20 13:10 97.3 68 20 156/85 97 Nasal Cannula 3 06/21/20 13:05 63 15 142/78 98 Nasal Cannula 3 06/21/20 13:00 65 17 168/76 100 Nasal Cannula 3 Intake and Output 06/21/20 06/22/20 19:00 07:00 Intake Total 176.25 ml 1185 ml Output Total 800 ml 550 ml Balance -623.75 ml 635 ml Intake Oral 120 ml 360 ml IV Total 56.25 ml 825 ml Output Urine Total 800 ml 550 ml # Bowel Movements 3 1 General Appearance: WD/WN HEENT: normocephalic, atraumatic Respiratory: chest wall non-tender, lungs clear Cardiovascular: normal peripheral pulses, normal rate Abdomen: normal bowel sounds, soft, non tender Genitourinary: normal external genitalia Skin: no rash Neurologic: pole shaver II-XII grossly normal Lymphatic: no neck adenopathy Microbiology Date/Time Source Procedure Growth Status 06/20/20 06:00 Rectum 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 Complete 06/20/20 06:00 Rectum - Final NO CARBAPENEM-RESISTANT ENTEROBACTERI... Complete 06/20/20 06:00 Nasal Nares Right MRSA Culture - Final Staphylococcus Aureus - Mrsa Complete Laboratory Tests 06/21/20 16:32: POC Whole Blood Glucose 113H 06/21/20 21:04: POC Whole Blood Glucose 139H 06/22/20 05:53: POC Whole Blood Glucose 121H 06/22/20 11:37: POC Whole Blood Glucose 155H Current Medications Medications (Trade) Dose Ordered Sig/Amanda Route PRN Reason Start Time Stop Time Status Last Admin Dose Admin Acetaminophen (Tylenol) 650 mg Q4H PRN ORAL fever 06/18/20 13:00 07/18/20 12:59 Acetaminophen (Tylenol) 650 mg Q4H PRN ORAL Mild Pain (Pain Scale 1-3) 06/18/20 17:45 07/18/20 17:44 Acetaminophen/ Hydrocodone Bitart ([place] 5/325) 1 tab Q4H PRN ORAL Moderate Pain (Pain Scale 4-6) 06/18/20 17:45 06/25/20 17:44 06/21/20 18:12 Acetaminophen/ Hydrocodone Bitart ([place] 5/325) 2 tab Q4H PRN ORAL Severe Pain (Pain Scale 7-10) 06/18/20 17:45 06/25/20 17:44 Al Hydroxide/Mg Hydroxide (Mylanta II) 30 ml Q4H PRN ORAL STOMACH UPSET 06/18/20 17:45 07/18/20 17:44 Ascorbic Acid (Vitamin C) 500 mg DAILY ORAL 06/19/20 09:00 07/19/20 08:59 06/22/20 09:15 Atorvastatin Calcium (Lipitor) 80 mg BEDTIME ORAL 06/18/20 21:00 09/16/20 20:59 06/21/20 20:58 Dextrose (Dextrose 50%) 25 ml Q30M PRN IV Hypoglycemia 06/18/20 13:00 09/16/20 12:59 Dextrose (Dextrose 50%) 50 ml Q30M PRN IV Hypoglycemia 06/18/20 13:00 09/16/20 12:59 Dextrose/ Electrolytes 1,000 ml @ 75 mls/hr [id number] IV 06/20/20 16:00 07/20/20 15:59 06/22/20 09:14 Diphenhydramine HCl (Benadryl) 25 mg Q6H PRN ORAL Itching/Pruritis 06/18/20 13:00 07/18/20 12:59 Fluoxetine HCl (PROzac) 40 mg DAILY ORAL 06/19/20 09:00 07/19/20 08:59 06/22/20 09:15 Gabapentin (Neurontin) 1,200 mg TWICE A DAY ORAL 06/18/20 18:00 07/18/20 17:59 06/22/20 09:15 Gadobutrol (Gadavist) 7.5 mmol NOW PRN IV Radiology Procedure 06/20/20 09:45 06/24/20 09:44 Insulin Aspart (NovoLOG) BEFORE MEALS AND HS SUBQ 06/18/20 16:30 09/16/20 16:29 06/22/20 12:20 Levothyroxine Sodium (Synthroid) 125 mcg ACBREAKFAST ORAL 06/19/20 06:30 07/19/20 06:29 06/22/20 05:54 Magnesium Hydroxide (Mom) 30 ml DAILYPRN PRN ORAL Constipation 06/18/20 17:45 07/18/20 17:44 Metoprolol Tartrate (Lopressor) 10 mg Q4H PRN IVP HR>120 06/19/20 17:15 09/17/20 17:14 Nitroglycerin (Ntg) 0.4 mg Q5M X 3 DOSES PRN SL Prn Chest Pain 06/18/20 13:00 07/18/20 12:59 Ondansetron HCl (Zofran) 4 mg Q6H PRN IVP Nausea & Vomiting 06/18/20 13:00 07/18/20 12:59 Polyethylene Glycol (Miralax) 17 gm HSPRN PRN ORAL Constipation 06/18/20 13:00 07/18/20 12:59 Zolpidem Tartrate (Ambien) 5 mg HSPRN PRN ORAL Insomnia 06/18/20 17:45 06/25/20 17:44 Assessment/Plan Problems: (1) Rectal bleeding (2) Renal mass (3) History of diabetes mellitus (4) Hx of essential hypertension Assessment/Plan MRI of kidney":Solid mass in the lower pole of the right kidney measuring approximately 2.2 cm. Renal cell carcinoma not excluded. endoscopy done, biopsy done H2 blockers iv fluids sliding scale prbc prn check electrolytes dvt prophylaxis symptomatic treatment Francisco Javier Real MD Jun 22, 2020 12:57
[2020-06-22 16:00] VITALS: BP 150/75
--- NOTE | 2020-06-22 17:32 | Internal Med Progress Note ---
Subjective Physician Name Jeff Jarvis Attending Physician Jeff Jarvis MD Current Medications Medications (Trade) Dose Ordered Sig/Amanda Route PRN Reason Start Time Stop Time Status Last Admin Dose Admin Acetaminophen (Tylenol) 650 mg Q4H PRN ORAL fever 06/18/20 13:00 07/18/20 12:59 Acetaminophen (Tylenol) 650 mg Q4H PRN ORAL Mild Pain (Pain Scale 1-3) 06/18/20 17:45 07/18/20 17:44 Acetaminophen/ Hydrocodone Bitart ([place] 5/325) 1 tab Q4H PRN ORAL Moderate Pain (Pain Scale 4-6) 06/18/20 17:45 06/25/20 17:44 06/21/20 18:12 Acetaminophen/ Hydrocodone Bitart ([place] 5/325) 2 tab Q4H PRN ORAL Severe Pain (Pain Scale 7-10) 06/18/20 17:45 06/25/20 17:44 Al Hydroxide/Mg Hydroxide (Mylanta II) 30 ml Q4H PRN ORAL STOMACH UPSET 06/18/20 17:45 07/18/20 17:44 Ascorbic Acid (Vitamin C) 500 mg DAILY ORAL 06/19/20 09:00 07/19/20 08:59 06/22/20 09:15 Atorvastatin Calcium (Lipitor) 80 mg BEDTIME ORAL 06/18/20 21:00 09/16/20 20:59 06/21/20 20:58 Dextrose (Dextrose 50%) 25 ml Q30M PRN IV Hypoglycemia 06/18/20 13:00 09/16/20 12:59 Dextrose (Dextrose 50%) 50 ml Q30M PRN IV Hypoglycemia 06/18/20 13:00 09/16/20 12:59 Dextrose/ Electrolytes 1,000 ml @ 75 mls/hr [id number] IV 06/20/20 16:00 07/20/20 15:59 06/22/20 09:14 Diphenhydramine HCl (Benadryl) 25 mg Q6H PRN ORAL Itching/Pruritis 06/18/20 13:00 07/18/20 12:59 Fluoxetine HCl (PROzac) 40 mg DAILY ORAL 06/19/20 09:00 07/19/20 08:59 06/22/20 09:15 Gabapentin (Neurontin) 1,200 mg TWICE A DAY ORAL 06/18/20 18:00 07/18/20 17:59 06/22/20 17:31 Gadobutrol (Gadavist) 7.5 mmol NOW PRN IV Radiology Procedure 06/20/20 09:45 06/24/20 09:44 Insulin Aspart (NovoLOG) BEFORE MEALS AND HS SUBQ 06/18/20 16:30 09/16/20 16:29 06/22/20 12:20 Levothyroxine Sodium (Synthroid) 125 mcg ACBREAKFAST ORAL 06/19/20 06:30 07/19/20 06:29 06/22/20 05:54 Magnesium Hydroxide (Mom) 30 ml DAILYPRN PRN ORAL Constipation 06/18/20 17:45 07/18/20 17:44 Metoprolol Tartrate (Lopressor) 10 mg Q4H PRN IVP HR>120 06/19/20 17:15 09/17/20 17:14 Nitroglycerin (Ntg) 0.4 mg Q5M X 3 DOSES PRN SL Prn Chest Pain 06/18/20 13:00 07/18/20 12:59 Ondansetron HCl (Zofran) 4 mg Q6H PRN IVP Nausea & Vomiting 06/18/20 13:00 07/18/20 12:59 Polyethylene Glycol (Miralax) 17 gm HSPRN PRN ORAL Constipation 06/18/20 13:00 07/18/20 12:59 Zolpidem Tartrate (Ambien) 5 mg HSPRN PRN ORAL Insomnia 06/18/20 17:45 06/25/20 17:44 Allergies: Coded Allergies: No Known Allergies (Unverified , 07/12/18) Subjective awake, alert, responsive, NAD, Less SOB on Oxygen Via NC, Hgb: 8.8 stable. Objective Last Vital Signs Date Time Temp Pulse Resp B/P (MAP) Pulse Ox O2 Delivery O2 Flow Rate FiO2 06/22/20 16:00 61 06/22/20 16:00 97.5 20 150/75 (100) 100 06/22/20 09:00 Room Air 06/21/20 13:10 3 Laboratory Tests Test 06/21/20 21:04 06/22/20 05:53 06/22/20 11:37 06/22/20 15:46 POC Whole Blood Glucose 139 MG/DL (74-106) H 121 MG/DL (74-106) H 155 MG/DL (74-106) H 133 MG/DL (74-106) H Microbiology Date/Time Source Procedure Growth Status 06/20/20 06:00 Rectum 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 Complete 06/20/20 06:00 Rectum - Final NO CARBAPENEM-RESISTANT ENTEROBACTERI... Complete 06/20/20 06:00 Nasal Nares Right MRSA Culture - Final Staphylococcus Aureus - Mrsa Complete Intake and Output 06/21/20 06/22/20 19:00 07:00 Intake Total 176.25 ml 1260 ml Output Total 800 ml 550 ml Balance -623.75 ml 710 ml Intake Oral 120 ml 360 ml IV Total 56.25 ml 900 ml Output Urine Total 800 ml 550 ml # Bowel Movements 3 1 Objective General: No acute distress, awake and alert, on O2 via NC. HEENT: NCAT, sclera anicteric, PERRL, EOMI. Neck: Supple, no significant jugular venous distention, Lungs: Fair inspiratory effort, decrease air at bases, no Wheeze or Rales. Heart: Regular rate and rhythm, normal S1/S2, no murmurs/gallops Abdomen: soft, nontender, nondistended. Normoactive bowel sounds, morbid obesity. : Eddy cath. Extremities: No Cyanosis , clubbing +1 LE's edema. Neuro: A&O x 3, Able to move all extremities, UE 5/5, LE 3/5 motor. Skin: warm, no rash. Psych: Normal mood and affect Assessment/Plan Assessment/Plan ASSESSMENT: This is a 80-year-old male. 1. Lower gastrointestinal hemorrhage. 2. Diabetes type 2. 3. Hypertension. 4. Prostate cancer. 5. Benign prostatic hypertrophy. 6. Coronary artery disease. 7. Hypercholesterolemia. 8. Hypothyroidism. 9. Sinus tachycardia 10. Right Renal mass possible Renal Cell Carcinoma. TREATMENT: 1. Lower gastrointestinal hemorrhage/rectal bleeding. CT=diverticulosis. Gastroenterology consultation = Dr. Hunter Cedeno. 2. Diabetes type 2. Continue NovoLog sliding scale. 3. Hypertension. Continue metoprolol 4. Coronary artery disease. 5. Hypercholesterolemia. Continue atorvastatin as above. 6. Hypothyroidism. Continue Synthroid as above. 7. Benign prostatic hypertrophy. 8. Cardiology=Dr Frank DVT prophylax: SCD PT Mobility Monitor Labs call christa Smith at [phone], left a message. EGD / Colonoscopy: (06/21/2020) 1. Gastric submucosal lesion, see above for details, status post biopsy. 2. Gastritis, status post biopsy. 3. Significant diverticulosis. 4. Internal hemorrhoids. RECOMMENDATIONS: 1. Resume diet. 2. Follow labs. 3. Follow biopsy results. 4. The patient is to get outpatient followup for possible EUS for the gastric submucosal lesion. MRI abdomen: Solid mass in the lower pole of the right kidney measuring approximately 2.2 cm. Renal cell carcinoma not excluded. Jeff Jarvis MD Jun 22, 2020 17:32
[2020-06-22 20:00] VITALS: BP 125/66
[2020-06-22] MEDS: Atorvastatin 80mg tab ORAL SCH (21:22)
[2020-06-23] VITALS: BP 126/60
[2020-06-23 04:00] VITALS: BP 132/58
[2020-06-23] MEDS: Levothyroxine 125mcg tab ORAL SCH (06:22)
[2020-06-23] MEDS: NovoLOG Insulin Flexpen SUBQ SCH ×4 (06:27→20:14)
[2020-06-23 08:00] VITALS: BP 121/55
[2020-06-23] MEDS: Ascorbic Acid 500mg tab ORAL SCH (09:00)
[2020-06-23] MEDS: D5 1/2NS w/KCl 20mEq 1,000 ML IV SCH (10:40)
--- NOTE | 2020-06-23 10:47 | Pulmonology Progress Note ---
Subjective ROS Limited/Unobtainable: Yes Allergies: Coded Allergies: No Known Allergies (Unverified , 07/12/18) Subjective afebrile pulse ox remains stable on RA no SOB, no CP MRA with solid R renal mass, possible RCC HH at baseline Objective Last 24 Hour Vital Signs Date Time Temp Pulse Resp B/P (MAP) Pulse Ox O2 Delivery O2 Flow Rate FiO2 06/23/20 08:37 Room Air 06/23/20 08:00 71 06/23/20 04:00 98.1 67 18 132/58 (82) 96 06/23/20 04:00 67 06/23/20 00:00 81 06/23/20 00:00 98.6 69 18 126/60 (82) 96 06/22/20 21:00 Room Air 06/22/20 20:00 98.8 70 18 125/66 (85) 100 06/22/20 20:00 71 06/22/20 16:00 61 06/22/20 16:00 97.5 63 20 150/75 (100) 100 06/22/20 12:00 68 06/22/20 12:00 97.7 64 21 151/69 (96) 99 Intake and Output 06/22/20 06/23/20 19:00 07:00 Intake Total 750 ml 100 ml Output Total 1500 ml 700 ml Balance -750 ml -600 ml Intake Oral 100 ml IV Total 750 ml Output Urine Total 1500 ml 700 ml # Bowel Movements 1 Objective General: No acute distress, awake and alert, HEENT: NCAT, sclera anicteric, PERRL, EOMI. Neck: Supple, no significant jugular venous distention, Lungs: Fair inspiratory effort, CTAB Heart: Regular rate and rhythm, Abdomen: soft, nontender,obese; normoactive bowel sounds, obesity. : Eddy cath. Extremities: No Cyanosis , clubbing +1 LE's edema. Neuro: A&O x 3, Able to move all extremities, UE 5/5, LE 3/5 motor. Skin: warm, no rash. Psych: Normal mood and affect Laboratory Tests 06/22/20 11:37: POC Whole Blood Glucose 155H 06/22/20 15:46: POC Whole Blood Glucose 133H Current Medications Medications (Trade) Dose Ordered Sig/Amanda Route PRN Reason Start Time Stop Time Status Last Admin Dose Admin Acetaminophen (Tylenol) 650 mg Q4H PRN ORAL fever 06/18/20 13:00 07/18/20 12:59 Acetaminophen (Tylenol) 650 mg Q4H PRN ORAL Mild Pain (Pain Scale 1-3) 06/18/20 17:45 07/18/20 17:44 Acetaminophen/ Hydrocodone Bitart ([place] 5/325) 1 tab Q4H PRN ORAL Moderate Pain (Pain Scale 4-6) 06/18/20 17:45 06/25/20 17:44 06/21/20 18:12 Acetaminophen/ Hydrocodone Bitart ([place] 5/325) 2 tab Q4H PRN ORAL Severe Pain (Pain Scale 7-10) 06/18/20 17:45 06/25/20 17:44 Al Hydroxide/Mg Hydroxide (Mylanta II) 30 ml Q4H PRN ORAL STOMACH UPSET 06/18/20 17:45 07/18/20 17:44 Ascorbic Acid (Vitamin C) 500 mg DAILY ORAL 06/19/20 09:00 07/19/20 08:59 06/23/20 09:00 Atorvastatin Calcium (Lipitor) 80 mg BEDTIME ORAL 06/18/20 21:00 09/16/20 20:59 06/22/20 21:22 Dextrose (Dextrose 50%) 25 ml Q30M PRN IV Hypoglycemia 06/18/20 13:00 09/16/20 12:59 Dextrose (Dextrose 50%) 50 ml Q30M PRN IV Hypoglycemia 06/18/20 13:00 09/16/20 12:59 Dextrose/ Electrolytes 1,000 ml @ 75 mls/hr [id number] IV 06/20/20 16:00 07/20/20 15:59 06/22/20 21:22 Diphenhydramine HCl (Benadryl) 25 mg Q6H PRN ORAL Itching/Pruritis 06/18/20 13:00 07/18/20 12:59 Fluoxetine HCl (PROzac) 40 mg DAILY ORAL 06/19/20 09:00 07/19/20 08:59 06/23/20 09:00 Gabapentin (Neurontin) 1,200 mg TWICE A DAY ORAL 06/18/20 18:00 07/18/20 17:59 06/23/20 09:00 Gadobutrol (Gadavist) 7.5 mmol NOW PRN IV Radiology Procedure 06/20/20 09:45 06/24/20 09:44 Insulin Aspart (NovoLOG) BEFORE MEALS AND HS SUBQ 06/18/20 16:30 09/16/20 16:29 06/22/20 21:24 Levothyroxine Sodium (Synthroid) 125 mcg ACBREAKFAST ORAL 06/19/20 06:30 07/19/20 06:29 06/23/20 06:22 Magnesium Hydroxide (Mom) 30 ml DAILYPRN PRN ORAL Constipation 06/18/20 17:45 07/18/20 17:44 Metoprolol Tartrate (Lopressor) 10 mg Q4H PRN IVP HR>120 06/19/20 17:15 09/17/20 17:14 Nitroglycerin (Ntg) 0.4 mg Q5M X 3 DOSES PRN SL Prn Chest Pain 06/18/20 13:00 07/18/20 12:59 Ondansetron HCl (Zofran) 4 mg Q6H PRN IVP Nausea & Vomiting 06/18/20 13:00 07/18/20 12:59 Polyethylene Glycol (Miralax) 17 gm HSPRN PRN ORAL Constipation 06/18/20 13:00 07/18/20 12:59 Zolpidem Tartrate (Ambien) 5 mg HSPRN PRN ORAL Insomnia 06/18/20 17:45 06/25/20 17:44 Assessment/Plan Assessment/Plan ASSESSMENT Lower GI bleeding/rectal bleeding s/p upper endoscopy with bx and colonoscopy Right renal mass, possible RCC Nephrolithiasis with mild right hydronephrosis History of COVID-19 (May 2020) HTN Diabetes Acute blood loss anemia Sinus tachycardia - resolved PLAN OF CARE tele IVF s/p EGD and colonoscopy with findings of gastric submucosal lesion, gastritis, diverticulosis, internal hemorrhoids fup with biopsy diet resumed EUS as OP for gastric submucosal lesion as recommended by GI CT A/P and MRI of the abdomen noted MRI revealed solid right renal mass 2.2 cm, possible RCC urology consult pending dr Green SVT resolved BP management with BB BS management with SSI continue statin monitor H&H with goal to keep hemoglobin above 7 bowel regimen check TSH, continue current dose of levothyroxine for now case discussed and evaluated by supervising physician Noris Hillman [employer] Jun 23, 2020 10:47
[2020-06-23 12:00] VITALS: BP 121/50
--- NOTE | 2020-06-23 14:05 | Surgery Progress Note ---
Surgery Progress Note Subjective Additional Comments afebrile no complaints hd stable labs okay MRI noted Objective Last 24 Hour Vital Signs Date Time Temp Pulse Resp B/P (MAP) Pulse Ox O2 Delivery O2 Flow Rate FiO2 06/23/20 08:37 Room Air 06/23/20 08:00 71 06/23/20 04:00 98.1 67 18 132/58 (82) 96 06/23/20 04:00 67 06/23/20 00:00 81 06/23/20 00:00 98.6 69 18 126/60 (82) 96 06/22/20 21:00 Room Air 06/22/20 20:00 98.8 70 18 125/66 (85) 100 06/22/20 20:00 71 06/22/20 16:00 61 06/22/20 16:00 97.5 63 20 150/75 (100) 100 I&O Intake and Output 06/22/20 06/23/20 19:00 07:00 Intake Total 750 ml 100 ml Output Total 1500 ml 700 ml Balance -750 ml -600 ml Intake Oral 100 ml IV Total 750 ml Output Urine Total 1500 ml 700 ml # Bowel Movements 1 Cardiovascular: RSR Respiratory: clear Abdomen: soft, non-tender, present bowel sounds, non-distended Extremities: no edema, no tenderness, no cyanosis Laboratory Tests Test 06/22/20 15:46 POC Whole Blood Glucose 133 MG/DL (74-106) H Plan Problems: (1) Rectal bleeding Assessment & Plan: 80M bright red blood per rectum. on eval in ED noted to have blood loose diarrhea incontinence. labs noted. abd exam benign. npo iv fluids ct a/p with contrast ordered eval mass, diverticulum, lesion gi consult serial h/h MRI noted. urology consult eval RCC will follow with exam and recs SUMMARY OF FINDINGS: 1. Gastric submucosal lesion, see above for details, status post biopsy. 2. Gastritis, status post biopsy. 3. Significant diverticulosis. 4. Internal hemorrhoids. RECOMMENDATIONS: 1. Resume diet. 2. Follow labs. 3. Follow biopsy results. 4. The patient is to get outpatient followup for possible EUS for the gastric submucosal lesion. There is a questioned mass in the right kidney demonstrates signal hypointensity on T2 imaging. On postcontrast imaging this mass is noted to enhance fairly uniformly. This mass measures approximately 2.3 x 2.1 x 2.3 cm. There is relative washout of enhancement of the mass compared to the adjacent normal renal parenchyma on more delayed postcontrast imaging. There has been interval development of mild right-sided hydronephrosis, likely related to degree of obstruction from the right ureteral stone noted on prior CT. Known nonobstructing stone in the lower pole the left kidney better appreciated on concurrent CT. No evidence of hydronephrosis on the left. Hepatic signal is homogeneous. No gallstones or pericholecystic inflammatory changes appreciated. Abdominal aorta normal in caliber. Spleen demonstrates normal homogenous signal. Adrenal glands unremarkable. Pancreas unremarkable. IMPRESSION: Solid mass in the lower pole of the right kidney measuring approximately 2.2 cm. Renal cell carcinoma not excluded. Urology follow-up recommended. Interval development of mild right-sided hydronephrosis, likely related to a degree of obstruction from right ureteral calculus better seen on prior CT. Lower chest:: Left greater than right bibasilar subsegmental atelectasis. Mild cardiomegaly. Hepatobiliary:: Genitourinary:: In the right lower renal pole, there is a hyperdense mass measuring 2.3 x 2.1 cm. There is a 10 mm left lower pole renal calculus. No hydronephrosis. Mild prostatomegaly. Adrenals:: Unremarkable. Pancreas:: Unremarkable. Gastrointestinal:: No evidence of obstruction. There is extensive colonic diverticulosis without evidence of acute diverticulitis. Appendix is normal. T here is mild eccentric wall thickening of the rectum (4:78). Spleen: : Unremarkable. Peritoneum:: There is rectus sheath muscle diastases with broad-based herniation of the lower abdominal wall containing multiple nonobstructed loops of bowel. Bones and soft tissues:: There are multilevel discogenic degenerative changes of the visualized spine. IMPRESSION: 1. Mild eccentric wall thickening of the rectum, which may be be inflammatory/reactive, due to partial underdistention, or reflective adherent stool. Recommend correlation with recent colonoscopy. 2. Colonic diverticulosis without evidence of acute diverticulitis 3. Nonobstructing left nephrolithiasis. 4. Hyperdense right lower pole renal mass, which could reflect complex/hemorrhagic cyst, but enhancing lesion such as neoplasm is not excluded. Recommend follow-up on nonemergent basis with contrast-enhanced MRI or CT (renal protocol) for more complete characterization. (2) History of diabetes mellitus Jonatan Hurtado Jun 23, 2020 14:05
[2020-06-23 16:00] VITALS: BP 124/61
--- NOTE | 2020-06-23 16:57 | Internal Med Progress Note ---
Subjective Date of Service: Jun 23, 2020 Physician Name PoppyKosta Attending Physician Jeff Jarvis MD Current Medications Medications (Trade) Dose Ordered Sig/Amanda Route PRN Reason Start Time Stop Time Status Last Admin Dose Admin Acetaminophen (Tylenol) 650 mg Q4H PRN ORAL fever 06/18/20 13:00 07/18/20 12:59 Acetaminophen (Tylenol) 650 mg Q4H PRN ORAL Mild Pain (Pain Scale 1-3) 06/18/20 17:45 07/18/20 17:44 Acetaminophen/ Hydrocodone Bitart ([place] 5/325) 1 tab Q4H PRN ORAL Moderate Pain (Pain Scale 4-6) 06/18/20 17:45 06/25/20 17:44 06/21/20 18:12 Acetaminophen/ Hydrocodone Bitart ([place] 5/325) 2 tab Q4H PRN ORAL Severe Pain (Pain Scale 7-10) 06/18/20 17:45 06/25/20 17:44 Al Hydroxide/Mg Hydroxide (Mylanta II) 30 ml Q4H PRN ORAL STOMACH UPSET 06/18/20 17:45 07/18/20 17:44 Ascorbic Acid (Vitamin C) 500 mg DAILY ORAL 06/19/20 09:00 07/19/20 08:59 06/23/20 09:00 Atorvastatin Calcium (Lipitor) 80 mg BEDTIME ORAL 06/18/20 21:00 09/16/20 20:59 06/22/20 21:22 Dextrose (Dextrose 50%) 25 ml Q30M PRN IV Hypoglycemia 06/18/20 13:00 09/16/20 12:59 Dextrose (Dextrose 50%) 50 ml Q30M PRN IV Hypoglycemia 06/18/20 13:00 09/16/20 12:59 Dextrose/ Electrolytes 1,000 ml @ 75 mls/hr [id number] IV 06/20/20 16:00 07/20/20 15:59 06/23/20 10:40 Diphenhydramine HCl (Benadryl) 25 mg Q6H PRN ORAL Itching/Pruritis 06/18/20 13:00 07/18/20 12:59 Fluoxetine HCl (PROzac) 40 mg DAILY ORAL 06/19/20 09:00 07/19/20 08:59 06/23/20 09:00 Gabapentin (Neurontin) 1,200 mg TWICE A DAY ORAL 06/18/20 18:00 07/18/20 17:59 06/23/20 09:00 Gadobutrol (Gadavist) 7.5 mmol NOW PRN IV Radiology Procedure 06/20/20 09:45 06/24/20 09:44 Insulin Aspart (NovoLOG) BEFORE MEALS AND HS SUBQ 06/18/20 16:30 09/16/20 16:29 06/22/20 21:24 Levothyroxine Sodium (Synthroid) 125 mcg ACBREAKFAST ORAL 06/19/20 06:30 07/19/20 06:29 06/23/20 06:22 Magnesium Hydroxide (Mom) 30 ml DAILYPRN PRN ORAL Constipation 06/18/20 17:45 07/18/20 17:44 Metoprolol Tartrate (Lopressor) 10 mg Q4H PRN IVP HR>120 06/19/20 17:15 09/17/20 17:14 Nitroglycerin (Ntg) 0.4 mg Q5M X 3 DOSES PRN SL Prn Chest Pain 06/18/20 13:00 07/18/20 12:59 Ondansetron HCl (Zofran) 4 mg Q6H PRN IVP Nausea & Vomiting 06/18/20 13:00 07/18/20 12:59 Polyethylene Glycol (Miralax) 17 gm HSPRN PRN ORAL Constipation 06/18/20 13:00 07/18/20 12:59 Tamsulosin HCl (Flomax) 0.4 mg BEDTIME ORAL 06/23/20 21:00 07/23/20 20:59 Zolpidem Tartrate (Ambien) 5 mg HSPRN PRN ORAL Insomnia 06/18/20 17:45 06/25/20 17:44 Allergies: Coded Allergies: No Known Allergies (Unverified , 07/12/18) Subjective 80 YO M admitted with rectal bleeding. Cover for Int Med-DR Jarvis. Now gastric lesion. S/P endoscopy and colonoscopy 06/21/20 Objective Last Vital Signs Date Time Temp Pulse Resp B/P (MAP) Pulse Ox O2 Delivery O2 Flow Rate FiO2 06/23/20 08:37 Room Air 06/23/20 08:00 71 06/23/20 04:00 98.1 18 132/58 (82) 96 06/21/20 13:10 3 Intake and Output 06/22/20 06/23/20 19:00 07:00 Intake Total 750 ml 100 ml Output Total 1500 ml 700 ml Balance -750 ml -600 ml Intake Oral 100 ml IV Total 750 ml Output Urine Total 1500 ml 700 ml # Bowel Movements 1 Objective PHYSICAL EXAMINATION: GENERAL: Patient is well-developed, well-nourished male, in no apparent distress. HEENT: Eyes, pupils equal and responsive to light and accommodation. Extraocular movements are intact. NECK: Supple without lymphadenopathy. CHEST: Lungs are clear to auscultation bilaterally without wheezes or rales. CARDIOVASCULAR: Regular rate. S1 and S2 are normal without murmurs, rubs, or gallops. ABDOMEN: Soft, nontender, and nondistended. Positive bowel sounds. No evidence of hepatosplenomegaly. Currently, no rebound or guarding noted. EXTREMITIES: Negative for clubbing, cyanosis, or edema. RECTAL/GENITAL: Not performed. NEUROLOGIC: Cranial nerves II through XII are grossly intact without focal deficits. Assessment/Plan Assessment/Plan ASSESSMENT: This is a 80-year-old male. 1. Lower gastrointestinal hemorrhage. 2. Diabetes type 2. 3. Hypertension. 4. Prostate cancer. 5. Benign prostatic hypertrophy. 6. Coronary artery disease. 7. Hypercholesterolemia. 8. Hypothyroidism. 9. Sinus tachycardia 10. gastric lesion TREATMENT: 1. Lower gastrointestinal hemorrhage/rectal bleeding. CT=diverticulosis. Gastroenterology consultation = Dr. Hunter Cedeno. S/P endoscopy and colonoscopy=gastric lesion We will follow recommendations of Gastroenterology. 2. Diabetes type 2. Continue NovoLog sliding scale. 3. Hypertension. Continue metoprolol 4. Coronary artery disease. 5. Hypercholesterolemia. Continue atorvastatin as above. 6. Hypothyroidism. Continue Synthroid as above. 7. Benign prostatic hypertrophy. 8. Cardiology=Dr Frank 9. DVT prophylax: SCD 10. await gastric biopsy result Kosta Mcwilliams MD Jun 23, 2020 16:57
--- NOTE | 2020-06-23 17:15 | Consultation ---
DATE OF CONSULTATION: 06/23/2020 CONSULTING PHYSICIAN: Edi Green M.D. REFERRING PHYSICIAN: Jeff Jarvis M.D. REASON FOR CONSULTATION: Evaluation of renal mass. HISTORY OF PRESENT ILLNESS: This is a 80-year-old gentleman. He was admitted to the hospital because of rectal bleeding. He had a workup including imaging with CT and MRI that showed a small renal mass. Urology evaluation is requested. The patient denies flank pain. He does have some urinary incontinence. He has a history of BPH. He apparently has a history of prostate cancer that was diagnosed at the [facility] a number of years ago. However, he has not had any treatment and it has been under active surveillance per patient report. PAST MEDICAL HISTORY: Significant for above, also diabetes, hypertension, coronary artery disease, hypercholesteremia, hypothyroidism. PAST SURGICAL HISTORY: Unknown. CURRENT MEDICATIONS: List in the hospital was reviewed. The patient is on Lopressor, vitamin C, Prozac, Synthroid, Lipitor, Neurontin, Ambien, milk of magnesia, [place], Mylanta, Tylenol, NovoLog, nitroglycerin, Zofran, MiraLAX, Benadryl. ALLERGIES: No known drug allergies. SOCIAL HISTORY: The patient is a resident of a long term. REVIEW OF SYSTEMS: As above. Again no flank pain, some urinary incontinence. FAMILY HISTORY: Noncontributory. PHYSICAL EXAMINATION: GENERAL: An elderly male, in no acute distress. VITAL SIGNS: Temperature is 98.1, blood pressure is 132/58, pulse 67, and respirations 18. HEENT: Normocephalic. NECK: Supple. ABDOMEN: Soft. GENITOURINARY: Normal phallus. Condom catheter is in place. Urine is grossly yellow. Occasional debris. LABORATORY DATA: His BUN is 20, creatinine 1.2, potassium 4.5. White count is 9.1, hemoglobin 8.8, and platelets of 244. UA on admission was negative. DIAGNOSTIC/IMAGING STUDIES: The patient had an abdominal MRI. There was mention of a 2.2 cm solid mass of the lower pole of the right kidney. On the MRI, there was some mention of mild right-sided hydronephrosis. The patient did also have an abdomen and pelvic CT scan and that one mentioned a nonobstructive stone of the left lower pole kidney. There was no mention of hydronephrosis or ureteral calculus on the CT scan. IMPRESSION: 1. Small right solid renal mass, rule out renal cell carcinoma. 2. Nephrolithiasis. 3. Questionable hydronephrosis. 4. BPH history. 5. Urinary incontinence. 6. Rule out neurogenic bladder. 7. Prostate cancer history. PLAN AND DISCUSSION: Again, the patient does have a small mass in the kidney, which is a little over 2 cm. It is concerning for renal cell carcinoma. At this time, this mass is small and options of monitoring with serial imaging versus partial nephrectomy or surgical removal is discussed, and this can certainly be decided on later electively. The patient does have history of BPH and incontinence. He has a condom catheter. I will also add Flomax 0.4 mg daily. He has a history of prostate cancer, which was diagnosed at the [facility], and apparently he has been on active surveillance, and a serum PSA will be checked as well. Thank you for this consultation. I will follow the patient and other recommendations will be forthcoming. Again thank you, Dr. Jarvis, for asking me to see this patient in consultation. Edi Green M.D. DR: SHIN JOB#: [id number] CC:
[2020-06-23 20:00] VITALS: BP 148/63
[2020-06-23] MEDS: Atorvastatin 80mg tab ORAL SCH (20:18)
[2020-06-23] MEDS: Tamsulosin 0.4mg cap ORAL SCH (20:18)
[2020-06-24] VITALS (7 sets, daily range): BP systolic 117–152; BP diastolic 60–70
[2020-06-24] MEDS: D5 1/2NS w/KCl 20mEq 1,000 ML IV SCH ×2 (01:10→13:25)
[2020-06-24] MEDS: Levothyroxine 125mcg tab ORAL SCH (06:12)
[2020-06-24] MEDS: NovoLOG Insulin Flexpen SUBQ SCH ×4 (06:17→20:41)
[2020-06-24 07:48] LABS: BASOPHILS % (AUTO) 0.8 % (0.0-2.0); EOSINOPHILS % (AUTO) 6.1 % (0.0-3.0); HEMATOCRIT 25.9 % (42.0-52.0); HEMOGLOBIN 8.2 G/DL (14.2-18.0); LYMPHOCYTES % (AUTO) 23.3 % (20.0-45.0); MEAN CORPUSCULAR VOLUME 91 FL (80-99); NEUTROPHILS % (AUTO) 63.8 % (45.0-75.0); PLATELET COUNT 274 K/UL (150-450); RED BLOOD COUNT 2.86 M/UL (4.70-6.10); WHITE BLOOD COUNT 10.2 K/UL (4.8-10.8)
[2020-06-24 07:56] LABS: ANION GAP 6 mmol/L (5-15); BLOOD UREA NITROGEN 5 mg/dL (7-18); CALCIUM 8.3 MG/DL (8.5-10.1); CARBON DIOXIDE 30 MMOL/L (21-32); CHLORIDE 103 MMOL/L (98-107); CREATININE 0.9 MG/DL (0.55-1.30); POTASSIUM 3.8 MMOL/L (3.5-5.1); SODIUM 139 MMOL/L (136-145)
[2020-06-24] MEDS: Ascorbic Acid 500mg tab ORAL SCH (09:20)
--- NOTE | 2020-06-24 10:41 | Pulmonology Progress Note ---
Subjective ROS Limited/Unobtainable: Yes Allergies: Coded Allergies: No Known Allergies (Unverified , 07/12/18) Subjective afebrile pulse ox remains stable on RA no SOB, no CP MRA with solid R renal mass, possible RCC , seen by urologist 06/23 Objective Last 24 Hour Vital Signs Date Time Temp Pulse Resp B/P (MAP) Pulse Ox O2 Delivery O2 Flow Rate FiO2 06/24/20 08:00 78 06/24/20 08:00 97.7 77 18 144/70 (94) 95 06/24/20 04:00 68 06/24/20 04:00 98.2 72 19 130/68 (88) 95 06/24/20 00:00 75 06/24/20 00:00 97.7 74 20 149/70 (96) 95 06/23/20 21:00 Room Air 06/23/20 20:00 97.9 73 19 148/63 (91) 95 06/23/20 20:00 69 06/23/20 16:00 97.5 68 18 124/61 (82) 99 06/23/20 16:00 68 06/23/20 12:00 97.7 63 20 121/50 (73) 98 06/23/20 12:00 63 Intake and Output 06/23/20 06/24/20 19:00 07:00 Intake Total 475 ml 1350 ml Output Total 1300 ml 1900 ml Balance -825 ml -550 ml Intake Oral 400 ml 600 ml IV Total 75 ml 750 ml Output Urine Total 1300 ml 1900 ml # Voids 1 Objective General: No acute distress, awake and alert, HEENT: NCAT, sclera anicteric, PERRL, EOMI. Neck: Supple, no significant jugular venous distention, Lungs: Fair inspiratory effort, CTAB Heart: Regular rate and rhythm, Abdomen: soft, nontender,obese; normoactive bowel sounds, obesity. : Eddy cath. Extremities: No Cyanosis , clubbing +1 LE's edema. Neuro: A&O x 3, Able to move all extremities, UE 5/5, LE 3/5 motor. Skin: warm, no rash. Psych: Normal mood and affect Laboratory Tests 06/23/20 18:45: Prostate Specific Antigen 41.33H 06/23/20 20:10: POC Whole Blood Glucose 141H 06/24/20 06:25: White Blood Count 10.2, Red Blood Count 2.86L, Hemoglobin 8.2L, Hematocrit 25.9L , Mean Corpuscular Volume 91, Mean Corpuscular Hemoglobin 28.8, Mean Corpuscular Hemoglobin Concent 31.7L, Red Cell Distribution Width 15.0H, Platelet Count 274, Mean Platelet Volume 7.1, Neutrophils (%) (Auto) 63.8, Lymphocytes (%) (Auto) 23.3, Monocytes (%) (Auto) 6.0, Eosinophils (%) (Auto) 6.1H, Basophils (%) (Auto) 0.8, Sodium Level 139, Potassium Level 3.8, Chloride Level 103, Carbon Dioxide Level 30, Anion Gap 6, Blood Urea Nitrogen 5L, Creatinine 0.9, Estimat Glomerular Filtration Rate > 60, Glucose Level 126H, Calcium Level 8.3L Current Medications Medications (Trade) Dose Ordered Sig/Amanda Route PRN Reason Start Time Stop Time Status Last Admin Dose Admin Acetaminophen (Tylenol) 650 mg Q4H PRN ORAL fever 06/18/20 13:00 07/18/20 12:59 Acetaminophen (Tylenol) 650 mg Q4H PRN ORAL Mild Pain (Pain Scale 1-3) 06/18/20 17:45 07/18/20 17:44 Acetaminophen/ Hydrocodone Bitart ([place] 5/325) 1 tab Q4H PRN ORAL Moderate Pain (Pain Scale 4-6) 06/18/20 17:45 06/25/20 17:44 06/21/20 18:12 Acetaminophen/ Hydrocodone Bitart ([place] 5/325) 2 tab Q4H PRN ORAL Severe Pain (Pain Scale 7-10) 06/18/20 17:45 06/25/20 17:44 Al Hydroxide/Mg Hydroxide (Mylanta II) 30 ml Q4H PRN ORAL STOMACH UPSET 06/18/20 17:45 07/18/20 17:44 Ascorbic Acid (Vitamin C) 500 mg DAILY ORAL 06/19/20 09:00 07/19/20 08:59 06/24/20 09:20 Atorvastatin Calcium (Lipitor) 80 mg BEDTIME ORAL 06/18/20 21:00 09/16/20 20:59 06/23/20 20:18 Dextrose (Dextrose 50%) 25 ml Q30M PRN IV Hypoglycemia 06/18/20 13:00 09/16/20 12:59 Dextrose (Dextrose 50%) 50 ml Q30M PRN IV Hypoglycemia 06/18/20 13:00 09/16/20 12:59 Dextrose/ Electrolytes 1,000 ml @ 75 mls/hr [id number] IV 06/20/20 16:00 07/20/20 15:59 06/24/20 01:10 Diphenhydramine HCl (Benadryl) 25 mg Q6H PRN ORAL Itching/Pruritis 06/18/20 13:00 07/18/20 12:59 Fluoxetine HCl (PROzac) 40 mg DAILY ORAL 06/19/20 09:00 07/19/20 08:59 06/24/20 09:20 Gabapentin (Neurontin) 1,200 mg TWICE A DAY ORAL 06/18/20 18:00 07/18/20 17:59 06/24/20 09:20 Insulin Aspart (NovoLOG) BEFORE MEALS AND HS SUBQ 06/18/20 16:30 09/16/20 16:29 06/23/20 20:14 Levothyroxine Sodium (Synthroid) 125 mcg ACBREAKFAST ORAL 06/19/20 06:30 07/19/20 06:29 06/24/20 06:12 Magnesium Hydroxide (Mom) 30 ml DAILYPRN PRN ORAL Constipation 06/18/20 17:45 07/18/20 17:44 Metoprolol Tartrate (Lopressor) 10 mg Q4H PRN IVP HR>120 06/19/20 17:15 09/17/20 17:14 Nitroglycerin (Ntg) 0.4 mg Q5M X 3 DOSES PRN SL Prn Chest Pain 06/18/20 13:00 07/18/20 12:59 Ondansetron HCl (Zofran) 4 mg Q6H PRN IVP Nausea & Vomiting 06/18/20 13:00 07/18/20 12:59 Polyethylene Glycol (Miralax) 17 gm HSPRN PRN ORAL Constipation 06/18/20 13:00 07/18/20 12:59 Tamsulosin HCl (Flomax) 0.4 mg BEDTIME ORAL 06/23/20 21:00 07/23/20 20:59 10/24/20 20:18 Zolpidem Tartrate (Ambien) 5 mg HSPRN PRN ORAL Insomnia 06/18/20 17:45 06/25/20 17:44 Assessment/Plan Assessment/Plan ASSESSMENT Lower GI bleeding/rectal bleeding s/p upper endoscopy with bx and colonoscopy Right renal mass, possible RCC Nephrolithiasis with mild right hydronephrosis History of COVID-19 (May 2020) HTN Diabetes Acute blood loss anemia Sinus tachycardia - resolved Hx of prostate Ca PLAN OF CARE tele IVF s/p EGD and colonoscopy with findings of gastric submucosal lesion, gastritis, diverticulosis, internal hemorrhoids fup with biopsy diet resumed EUS as OP for gastric submucosal lesion as recommended by GI CT A/P and MRI of the abdomen noted MRI revealed solid right renal mass 2.2 cm, possible RCC urology consult appreciated PSA 41, hx of prostate Ca added Flomax SVT resolved BP management with BB BS management with SSI continue statin monitor H&H with goal to keep hemoglobin above 7 bowel regimen check TSH, continue current dose of levothyroxine for now case discussed and evaluated by supervising physician Noris Hillman NP Jun 24, 2020 10:41
--- NOTE | 2020-06-24 13:40 | Urology Progress Note ---
Assessment/Plan Assessment/Plan: 1. Small right solid renal mass, rule out renal cell carcinoma. 2. Nephrolithiasis. 3. Questionable hydronephrosis. 4. BPH history. 5. Urinary incontinence. 6. Rule out neurogenic bladder. 7. Prostate cancer history. monitor clinically serial imaging of renal mass flomax added sig elevation of serum PSA advanced prostate cancer? consider bone scan may need androgen deprivation therapy d/w Dr. Mcwilliams Subjective Allergies: Coded Allergies: No Known Allergies (Unverified , 07/12/18) Subjective all noted, feels fair condom cath Objective Last 24 Hour Vital Signs Date Time Temp Pulse Resp B/P (MAP) Pulse Ox O2 Delivery O2 Flow Rate FiO2 06/24/20 12:00 77 06/24/20 12:00 99.3 65 18 143/67 (92) 98 06/24/20 09:00 Room Air 06/24/20 08:00 78 06/24/20 08:00 97.7 77 18 144/70 (94) 95 06/24/20 04:00 68 06/24/20 04:00 98.2 72 19 130/68 (88) 95 06/24/20 00:00 75 06/24/20 00:00 97.7 74 20 149/70 (96) 95 06/23/20 21:00 Room Air 06/23/20 20:00 97.9 73 19 148/63 (91) 95 06/23/20 20:00 69 06/23/20 16:00 97.5 68 18 124/61 (82) 99 06/23/20 16:00 68 Intake and Output 06/23/20 06/24/20 18:59 06:59 Intake Total 400 ml 1425 ml Output Total 1300 ml 1900 ml Balance -900 ml -475 ml Intake Oral 400 ml 600 ml IV Total 825 ml Output Urine Total 1300 ml 1900 ml # Voids 1 Microbiology Date/Time Source Procedure Growth Status 06/20/20 06:00 Rectum 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 Complete 06/20/20 06:00 Nasal Nares Right MRSA Culture - Final Staphylococcus Aureus - [facility] Complete Current Medications Medications (Trade) Dose Ordered Sig/Amanda Route PRN Reason Start Time Stop Time Status Last Admin Dose Admin Acetaminophen (Tylenol) 650 mg Q4H PRN ORAL fever 06/18/20 13:00 07/18/20 12:59 Acetaminophen (Tylenol) 650 mg Q4H PRN ORAL Mild Pain (Pain Scale 1-3) 06/18/20 17:45 07/18/20 17:44 Acetaminophen/ Hydrocodone Bitart ([place] 5/325) 1 tab Q4H PRN ORAL Moderate Pain (Pain Scale 4-6) 06/18/20 17:45 06/25/20 17:44 06/21/20 18:12 Acetaminophen/ Hydrocodone Bitart ([place] 5/325) 2 tab Q4H PRN ORAL Severe Pain (Pain Scale 7-10) 06/18/20 17:45 06/25/20 17:44 Al Hydroxide/Mg Hydroxide (Mylanta II) 30 ml Q4H PRN ORAL STOMACH UPSET 06/18/20 17:45 07/18/20 17:44 Ascorbic Acid (Vitamin C) 500 mg DAILY ORAL 06/19/20 09:00 07/19/20 08:59 06/24/20 09:20 Atorvastatin Calcium (Lipitor) 80 mg BEDTIME ORAL 06/18/20 21:00 09/16/20 20:59 06/23/20 20:18 Dextrose (Dextrose 50%) 25 ml Q30M PRN IV Hypoglycemia 06/18/20 13:00 09/16/20 12:59 Dextrose (Dextrose 50%) 50 ml Q30M PRN IV Hypoglycemia 06/18/20 13:00 09/16/20 12:59 Dextrose/ Electrolytes 1,000 ml @ 75 mls/hr [id number] IV 06/20/20 16:00 07/20/20 15:59 06/24/20 13:25 Diphenhydramine HCl (Benadryl) 25 mg Q6H PRN ORAL Itching/Pruritis 06/18/20 13:00 07/18/20 12:59 Fluoxetine HCl (PROzac) 40 mg DAILY ORAL 06/19/20 09:00 07/19/20 08:59 06/24/20 09:20 Gabapentin (Neurontin) 1,200 mg TWICE A DAY ORAL 06/18/20 18:00 07/18/20 17:59 06/24/20 09:20 Insulin Aspart (NovoLOG) BEFORE MEALS AND HS SUBQ 06/18/20 16:30 09/16/20 16:29 06/24/20 12:09 Levothyroxine Sodium (Synthroid) 125 mcg ACBREAKFAST ORAL 06/19/20 06:30 07/19/20 06:29 06/24/20 06:12 Magnesium Hydroxide (Mom) 30 ml DAILYPRN PRN ORAL Constipation 06/18/20 17:45 07/18/20 17:44 Metoprolol Tartrate (Lopressor) 10 mg Q4H PRN IVP HR>120 06/19/20 17:15 09/17/20 17:14 Nitroglycerin (Ntg) 0.4 mg Q5M X 3 DOSES PRN SL Prn Chest Pain 06/18/20 13:00 07/18/20 12:59 Ondansetron HCl (Zofran) 4 mg Q6H PRN IVP Nausea & Vomiting 06/18/20 13:00 07/18/20 12:59 Polyethylene Glycol (Miralax) 17 gm HSPRN PRN ORAL Constipation 06/18/20 13:00 07/18/20 12:59 Tamsulosin HCl (Flomax) 0.4 mg BEDTIME ORAL 06/23/20 21:00 07/23/20 20:59 06/23/20 20:18 Zolpidem Tartrate (Ambien) 5 mg HSPRN PRN ORAL Insomnia 06/18/20 17:45 06/25/20 17:44 Laboratory Tests 06/23/20 18:45: Prostate Specific Antigen 41.33H 06/23/20 20:10: POC Whole Blood Glucose 141H 06/24/20 06:25: White Blood Count 10.2, Red Blood Count 2.86L, Hemoglobin 8.2L, Hematocrit 25.9L , Mean Corpuscular Volume 91, Mean Corpuscular Hemoglobin 28.8, Mean Corpuscular Hemoglobin Concent 31.7L, Red Cell Distribution Width 15.0H, Platelet Count 274, Mean Platelet Volume 7.1, Neutrophils (%) (Auto) 63.8, Lymphocytes (%) (Auto) 23.3, Monocytes (%) (Auto) 6.0, Eosinophils (%) (Auto) 6.1H, Basophils (%) (Auto) 0.8, Sodium Level 139, Potassium Level 3.8, Chloride Level 103, Carbon Dioxide Level 30, Anion Gap 6, Blood Urea Nitrogen 5L, Creatinine 0.9, Estimat Glomerular Filtration Rate > 60, Glucose Level 126H, Calcium Level 8.3L 06/24/20 11:46: POC Whole Blood Glucose 152H Height (Feet): 6 Height (Inches): 0.80 Weight (Pounds): 238 Objective exam stable Edi Green MD Jun 24, 2020 13:40
--- NOTE | 2020-06-24 15:24 | Internal Med Progress Note ---
Subjective Date of Service: Jun 24, 2020 Physician Name PoppyKosta Attending Physician Jeff Jarvis MD Current Medications Medications (Trade) Dose Ordered Sig/Amanda Route PRN Reason Start Time Stop Time Status Last Admin Dose Admin Acetaminophen (Tylenol) 650 mg Q4H PRN ORAL fever 06/18/20 13:00 07/18/20 12:59 Acetaminophen (Tylenol) 650 mg Q4H PRN ORAL Mild Pain (Pain Scale 1-3) 06/18/20 17:45 07/18/20 17:44 Acetaminophen/ Hydrocodone Bitart ([place] 5/325) 1 tab Q4H PRN ORAL Moderate Pain (Pain Scale 4-6) 06/18/20 17:45 06/25/20 17:44 06/21/20 18:12 Acetaminophen/ Hydrocodone Bitart ([place] 5/325) 2 tab Q4H PRN ORAL Severe Pain (Pain Scale 7-10) 06/18/20 17:45 06/25/20 17:44 Al Hydroxide/Mg Hydroxide (Mylanta II) 30 ml Q4H PRN ORAL STOMACH UPSET 06/18/20 17:45 07/18/20 17:44 Ascorbic Acid (Vitamin C) 500 mg DAILY ORAL 06/19/20 09:00 07/19/20 08:59 06/24/20 09:20 Atorvastatin Calcium (Lipitor) 80 mg BEDTIME ORAL 06/18/20 21:00 09/16/20 20:59 06/23/20 20:18 Dextrose (Dextrose 50%) 25 ml Q30M PRN IV Hypoglycemia 06/18/20 13:00 09/16/20 12:59 Dextrose (Dextrose 50%) 50 ml Q30M PRN IV Hypoglycemia 06/18/20 13:00 09/16/20 12:59 Dextrose/ Electrolytes 1,000 ml @ 75 mls/hr [id number] IV 06/20/20 16:00 07/20/20 15:59 06/24/20 13:25 Diphenhydramine HCl (Benadryl) 25 mg Q6H PRN ORAL Itching/Pruritis 06/18/20 13:00 07/18/20 12:59 Fluoxetine HCl (PROzac) 40 mg DAILY ORAL 06/19/20 09:00 07/19/20 08:59 06/24/20 09:20 Gabapentin (Neurontin) 1,200 mg TWICE A DAY ORAL 06/18/20 18:00 07/18/20 17:59 06/24/20 09:20 Insulin Aspart (NovoLOG) BEFORE MEALS AND HS SUBQ 06/18/20 16:30 09/16/20 16:29 06/24/20 12:09 Levothyroxine Sodium (Synthroid) 125 mcg ACBREAKFAST ORAL 06/19/20 06:30 07/19/20 06:29 06/24/20 06:12 Magnesium Hydroxide (Mom) 30 ml DAILYPRN PRN ORAL Constipation 06/18/20 17:45 07/18/20 17:44 Metoprolol Tartrate (Lopressor) 10 mg Q4H PRN IVP HR>120 06/19/20 17:15 09/17/20 17:14 Nitroglycerin (Ntg) 0.4 mg Q5M X 3 DOSES PRN SL Prn Chest Pain 06/18/20 13:00 07/18/20 12:59 Ondansetron HCl (Zofran) 4 mg Q6H PRN IVP Nausea & Vomiting 06/18/20 13:00 07/18/20 12:59 Polyethylene Glycol (Miralax) 17 gm HSPRN PRN ORAL Constipation 06/18/20 13:00 07/18/20 12:59 Tamsulosin HCl (Flomax) 0.4 mg BEDTIME ORAL 06/23/20 21:00 07/23/20 20:59 06/23/20 20:18 Zolpidem Tartrate (Ambien) 5 mg HSPRN PRN ORAL Insomnia 06/18/20 17:45 06/25/20 17:44 Allergies: Coded Allergies: No Known Allergies (Unverified , 07/12/18) ROS Limited/Unobtainable: Yes Subjective 80 YO M admitted with rectal bleeding. Cover for Int Med-DR Jarvis. Now gastric lesion. S/P endoscopy and colonoscopy 06/21/20 Objective Last Vital Signs Date Time Temp Pulse Resp B/P (MAP) Pulse Ox O2 Delivery O2 Flow Rate FiO2 06/24/20 13:37 97.7 66 20 144/70 (94) 97 06/24/20 09:00 Room Air 06/21/20 13:10 3 Laboratory Tests Test 06/23/20 18:45 06/23/20 20:10 06/24/20 06:25 06/24/20 11:46 Prostate Specific Antigen 41.33 ng/mL (0.13-4.0) H POC Whole Blood Glucose 141 MG/DL (74-106) H 152 MG/DL (74-106) H White Blood Count 10.2 K/UL (4.8-10.8) Red Blood Count 2.86 M/UL (4.70-6.10) L Hemoglobin 8.2 G/DL (14.2-18.0) L Hematocrit 25.9 % (42.0-52.0) L Mean Corpuscular Volume 91 FL (80-99) Mean Corpuscular Hemoglobin 28.8 PG (27.0-31.0) Mean Corpuscular Hemoglobin Concent 31.7 G/DL (32.0-36.0) L Red Cell Distribution Width 15.0 % (11.6-14.8) H Platelet Count 274 K/UL (150-450) Mean Platelet Volume 7.1 FL (6.5-10.1) Neutrophils (%) (Auto) 63.8 % (45.0-75.0) Lymphocytes (%) (Auto) 23.3 % (20.0-45.0) Monocytes (%) (Auto) 6.0 % (1.0-10.0) Eosinophils (%) (Auto) 6.1 % (0.0-3.0) H Basophils (%) (Auto) 0.8 % (0.0-2.0) Sodium Level 139 MMOL/L (136-145) Potassium Level 3.8 MMOL/L (3.5-5.1) Chloride Level 103 MMOL/L (98-107) Carbon Dioxide Level 30 MMOL/L (21-32) Anion Gap 6 mmol/L (5-15) Blood Urea Nitrogen 5 mg/dL (7-18) L Creatinine 0.9 MG/DL (0.55-1.30) Estimat Glomerular Filtration Rate > 60 mL/min (>60) Glucose Level 126 MG/DL (74-106) H Calcium Level 8.3 MG/DL (8.5-10.1) L Intake and Output 06/23/20 06/24/20 19:00 07:00 Intake Total 475 ml 1425 ml Output Total 1300 ml 1900 ml Balance -825 ml -475 ml Intake Oral 400 ml 600 ml IV Total 75 ml 825 ml Output Urine Total 1300 ml 1900 ml # Voids 1 Objective PHYSICAL EXAMINATION: GENERAL: Patient is well-developed, well-nourished male, in no apparent distress. HEENT: Eyes, pupils equal and responsive to light and accommodation. Extraocular movements are intact. NECK: Supple without lymphadenopathy. CHEST: Lungs are clear to auscultation bilaterally without wheezes or rales. CARDIOVASCULAR: Regular rate. S1 and S2 are normal without murmurs, rubs, or gallops. ABDOMEN: Soft, nontender, and nondistended. Positive bowel sounds. No evidence of hepatosplenomegaly. Currently, no rebound or guarding noted. EXTREMITIES: Negative for clubbing, cyanosis, or edema. RECTAL/GENITAL: Not performed. NEUROLOGIC: Cranial nerves II through XII are grossly intact without focal deficits. Assessment/Plan Assessment/Plan ASSESSMENT: This is a 80-year-old male. 1. Lower gastrointestinal hemorrhage. 2. Diabetes type 2. 3. Hypertension. 4. Prostate cancer. 5. Benign prostatic hypertrophy. 6. Coronary artery disease. 7. Hypercholesterolemia. 8. Hypothyroidism. 9. Sinus tachycardia 10. gastric lesion TREATMENT: 1. Lower gastrointestinal hemorrhage/rectal bleeding. CT=diverticulosis. Gastroenterology consultation = Dr. Hunter Cedeno. S/P endoscopy and colonoscopy=gastric lesion We will follow recommendations of Gastroenterology. 2. Diabetes type 2. Continue NovoLog sliding scale. 3. Hypertension. Continue metoprolol 4. Coronary artery disease. 5. Hypercholesterolemia. Continue atorvastatin as above. 6. Hypothyroidism. Continue Synthroid as above. 7. Benign prostatic hypertrophy. 8. Cardiology=Dr Frank 9. DVT prophylax: SCD 10. await gastric biopsy result Kosta Mcwilliams MD Jun 24, 2020 15:24
--- NOTE | 2020-06-24 15:46 | Surgery Progress Note ---
Surgery Progress Note Subjective Symptoms: improved, tolerating diet, passing flatus, BM Objective Last 24 Hour Vital Signs Date Time Temp Pulse Resp B/P (MAP) Pulse Ox O2 Delivery O2 Flow Rate FiO2 06/24/20 13:37 97.7 66 20 144/70 (94) 97 06/24/20 12:00 77 06/24/20 12:00 99.3 65 18 143/67 (92) 98 06/24/20 09:00 Room Air 06/24/20 08:00 78 06/24/20 08:00 97.7 77 18 144/70 (94) 95 06/24/20 04:00 68 06/24/20 04:00 98.2 72 19 130/68 (88) 95 06/24/20 00:00 75 06/24/20 00:00 97.7 74 20 149/70 (96) 95 06/23/20 21:00 Room Air 06/23/20 20:00 97.9 73 19 148/63 (91) 95 06/23/20 20:00 69 06/23/20 16:00 97.5 68 18 124/61 (82) 99 06/23/20 16:00 68 I&O Intake and Output 06/23/20 06/24/20 19:00 07:00 Intake Total 475 ml 1425 ml Output Total 1300 ml 1900 ml Balance -825 ml -475 ml Intake Oral 400 ml 600 ml IV Total 75 ml 825 ml Output Urine Total 1300 ml 1900 ml # Voids 1 Cardiovascular: RSR Respiratory: clear Abdomen: soft, non-tender, present bowel sounds Extremities: no edema, no tenderness, no cyanosis Laboratory Tests Test 06/23/20 18:45 06/23/20 20:10 06/24/20 06:25 06/24/20 11:46 Prostate Specific Antigen 41.33 ng/mL (0.13-4.0) H POC Whole Blood Glucose 141 MG/DL (74-106) H 152 MG/DL (74-106) H White Blood Count 10.2 K/UL (4.8-10.8) Red Blood Count 2.86 M/UL (4.70-6.10) L Hemoglobin 8.2 G/DL (14.2-18.0) L Hematocrit 25.9 % (42.0-52.0) L Mean Corpuscular Volume 91 FL (80-99) Mean Corpuscular Hemoglobin 28.8 PG (27.0-31.0) Mean Corpuscular Hemoglobin Concent 31.7 G/DL (32.0-36.0) L Red Cell Distribution Width 15.0 % (11.6-14.8) H Platelet Count 274 K/UL (150-450) Mean Platelet Volume 7.1 FL (6.5-10.1) Neutrophils (%) (Auto) 63.8 % (45.0-75.0) Lymphocytes (%) (Auto) 23.3 % (20.0-45.0) Monocytes (%) (Auto) 6.0 % (1.0-10.0) Eosinophils (%) (Auto) 6.1 % (0.0-3.0) H Basophils (%) (Auto) 0.8 % (0.0-2.0) Sodium Level 139 MMOL/L (136-145) Potassium Level 3.8 MMOL/L (3.5-5.1) Chloride Level 103 MMOL/L (98-107) Carbon Dioxide Level 30 MMOL/L (21-32) Anion Gap 6 mmol/L (5-15) Blood Urea Nitrogen 5 mg/dL (7-18) L Creatinine 0.9 MG/DL (0.55-1.30) Estimat Glomerular Filtration Rate > 60 mL/min (>60) Glucose Level 126 MG/DL (74-106) H Calcium Level 8.3 MG/DL (8.5-10.1) L Plan Problems: (1) Rectal bleeding Assessment & Plan: 80M bright red blood per rectum. on eval in ED noted to have blood loose diarrhea incontinence. labs noted. abd exam benign. npo iv fluids ct a/p with contrast ordered eval mass, diverticulum, lesion gi consult serial h/h MRI noted. urology consult eval RCC will follow with exam and recs SUMMARY OF FINDINGS: 1. Gastric submucosal lesion, see above for details, status post biopsy. 2. Gastritis, status post biopsy. 3. Significant diverticulosis. 4. Internal hemorrhoids. RECOMMENDATIONS: 1. Resume diet. 2. Follow labs. 3. Follow biopsy results. 4. The patient is to get outpatient followup for possible EUS for the gastric submucosal lesion. There is a questioned mass in the right kidney demonstrates signal hypointensity on T2 imaging. On postcontrast imaging this mass is noted to enhance fairly uniformly. This mass measures approximately 2.3 x 2.1 x 2.3 cm. There is relative washout of enhancement of the mass compared to the adjacent normal renal parenchyma on more delayed postcontrast imaging. There has been interval development of mild right-sided hydronephrosis, likely related to degree of obstruction from the right ureteral stone noted on prior CT. Known nonobstructing stone in the lower pole the left kidney better appreciated on concurrent CT. No evidence of hydronephrosis on the left. Hepatic signal is homogeneous. No gallstones or pericholecystic inflammatory changes appreciated. Abdominal aorta normal in caliber. Spleen demonstrates normal homogenous signal. Adrenal glands unremarkable. Pancreas unremarkable. IMPRESSION: Solid mass in the lower pole of the right kidney measuring approximately 2.2 cm. Renal cell carcinoma not excluded. Urology follow-up recommended. Interval development of mild right-sided hydronephrosis, likely related to a degree of obstruction from right ureteral calculus better seen on prior CT. Lower chest:: Left greater than right bibasilar subsegmental atelectasis. Mild cardiomegaly. Hepatobiliary:: Genitourinary:: In the right lower renal pole, there is a hyperdense mass measuring 2.3 x 2.1 cm. There is a 10 mm left lower pole renal calculus. No hydronephrosis. Mild prostatomegaly. Adrenals:: Unremarkable. Pancreas:: Unremarkable. Gastrointestinal:: No evidence of obstruction. There is extensive colonic diverticulosis without evidence of acute diverticulitis. Appendix is normal. There is mild eccentric wall thickening of the rectum (4:78). Spleen: : Unremarkable. Peritoneum:: There is rectus sheath muscle diastases with broad-based herniation of the lower abdominal wall containing multiple nonobstructed loops of bowel. Bones and soft tissues:: There are multilevel discogenic degenerative changes of the visualized spine. IMPRESSION: 1. Mild eccentric wall thickening of the rectum, which may be be inflammatory/reactive, due to partial underdistention, or reflective adherent stool. Recommend correlation with recent colonoscopy. 2. Colonic diverticulosis without evidence of acute diverticulitis 3. Nonobstructing left nephrolithiasis. 4. Hyperdense right lower pole renal mass, which could reflect complex/hemorrhagic cyst, but enhancing lesion such as neoplasm is not excluded. Recommend follow-up on nonemergent basis with contrast-enhanced MRI or CT (renal protocol) for more complete characterization. (2) History of diabetes mellitus Jonatan Hurtado Jun 24, 2020 15:46
[2020-06-24] MEDS: Atorvastatin 80mg tab ORAL SCH (20:32)
[2020-06-24] MEDS: Tamsulosin 0.4mg cap ORAL SCH (20:33)
[2020-06-25] VITALS: BP 123/51
[2020-06-25] MEDS: D5 1/2NS w/KCl 20mEq 1,000 ML IV SCH ×2 (02:00→16:00)
[2020-06-25 04:00] VITALS: BP 144/72
[2020-06-25] MEDS: Levothyroxine 125mcg tab ORAL SCH (06:20)
[2020-06-25] MEDS: NovoLOG Insulin Flexpen SUBQ SCH ×3 (06:25→16:30)
[2020-06-25 06:50] LABS: BASOPHILS % (AUTO) 1.2 % (0.0-2.0); EOSINOPHILS % (AUTO) 7.3 % (0.0-3.0); HEMATOCRIT 26.4 % (42.0-52.0); HEMOGLOBIN 8.3 G/DL (14.2-18.0); LYMPHOCYTES % (AUTO) 25.6 % (20.0-45.0); MEAN CORPUSCULAR VOLUME 90 FL (80-99); MONOCYTES % (AUTO) 6.5 % (1.0-10.0); NEUTROPHILS % (AUTO) 59.4 % (45.0-75.0); PLATELET COUNT 269 K/UL (150-450); RED BLOOD COUNT 2.92 M/UL (4.70-6.10); RED CELL DISTRIBUTION WIDTH 14.2 % (11.6-14.8); WHITE BLOOD COUNT 8.8 K/UL (4.8-10.8)
[2020-06-25 07:25] LABS: ANION GAP 5 mmol/L (5-15); BLOOD UREA NITROGEN 6 mg/dL (7-18); CALCIUM 8.2 MG/DL (8.5-10.1); CARBON DIOXIDE 29 MMOL/L (21-32); CHLORIDE 103 MMOL/L (98-107); CREATININE 0.9 MG/DL (0.55-1.30); POTASSIUM 3.9 MMOL/L (3.5-5.1); SODIUM 137 MMOL/L (136-145)
[2020-06-25 08:00] VITALS: BP 137/63
--- NOTE | 2020-06-25 08:01 | Urology Progress Note ---
Assessment/Plan Assessment/Plan: 1. Small right solid renal mass, rule out renal cell carcinoma. 2. Nephrolithiasis. 3. Questionable hydronephrosis. 4. BPH history. 5. Urinary incontinence. 6. Rule out neurogenic bladder. 7. Prostate cancer history. monitor clinically serial imaging of renal mass flomax added sig elevation of serum PSA advanced prostate cancer? consider bone scan may need androgen deprivation therapy renal fxn stable Subjective Allergies: Coded Allergies: No Known Allergies (Unverified , 07/12/18) Subjective all noted, feels fair condom cath Objective Last 24 Hour Vital Signs Date Time Temp Pulse Resp B/P (MAP) Pulse Ox O2 Delivery O2 Flow Rate FiO2 06/25/20 04:00 98.7 73 21 144/72 (96) 96 06/25/20 04:00 88 06/25/20 00:00 81 06/25/20 00:00 99.1 66 19 123/51 (75) 96 06/24/20 21:00 Room Air 06/24/20 20:00 74 06/24/20 20:00 99.7 68 20 117/60 (79) 95 06/24/20 16:00 97.9 71 18 152/70 (97) 97 06/24/20 16:00 81 06/24/20 13:37 97.7 66 20 144/70 (94) 97 06/24/20 12:00 77 06/24/20 12:00 99.3 65 18 143/67 (92) 98 06/24/20 09:00 Room Air 06/24/20 08:00 78 06/24/20 08:00 97.7 77 18 144/70 (94) 95 Intake and Output 06/24/20 06/25/20 19:00 07:00 Intake Total 615 ml 1020 ml Output Total 1500 ml 1800 ml Balance -885 ml -780 ml Intake Oral 240 ml 270 ml IV Total 375 ml 750 ml Output Urine Total 1500 ml 1800 ml # Voids 1 Microbiology Date/Time Source Procedure Growth Status 06/20/20 06:00 Rectum 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 Complete 06/20/20 06:00 Nasal Nares Right MRSA Culture - Final Staphylococcus Aureus - [facility] Complete Current Medications Medications (Trade) Dose Ordered Sig/Amanda Route PRN Reason Start Time Stop Time Status Last Admin Dose Admin Acetaminophen (Tylenol) 650 mg Q4H PRN ORAL fever 06/18/20 13:00 07/18/20 12:59 Acetaminophen (Tylenol) 650 mg Q4H PRN ORAL Mild Pain (Pain Scale 1-3) 06/18/20 17:45 07/18/20 17:44 Acetaminophen/ Hydrocodone Bitart ([place] 5/325) 1 tab Q4H PRN ORAL Moderate Pain (Pain Scale 4-6) 06/18/20 17:45 06/25/20 17:44 06/21/20 18:12 Acetaminophen/ Hydrocodone Bitart ([place] 5/325) 2 tab Q4H PRN ORAL Severe Pain (Pain Scale 7-10) 06/18/20 17:45 06/25/20 17:44 Al Hydroxide/Mg Hydroxide (Mylanta II) 30 ml Q4H PRN ORAL STOMACH UPSET 06/18/20 17:45 07/18/20 17:44 Ascorbic Acid (Vitamin C) 500 mg DAILY ORAL 06/19/20 09:00 07/19/20 08:59 06/24/20 09:20 Atorvastatin Calcium (Lipitor) 80 mg BEDTIME ORAL 06/18/20 21:00 09/16/20 20:59 06/24/20 20:32 Dextrose (Dextrose 50%) 25 ml Q30M PRN IV Hypoglycemia 06/18/20 13:00 09/16/20 12:59 Dextrose (Dextrose 50%) 50 ml Q30M PRN IV Hypoglycemia 06/18/20 13:00 09/16/20 12:59 Dextrose/ Electrolytes 1,000 ml @ 75 mls/hr [id number] IV 06/20/20 16:00 07/20/20 15:59 06/25/20 02:00 Diphenhydramine HCl (Benadryl) 25 mg Q6H PRN ORAL Itching/Pruritis 06/18/20 13:00 07/18/20 12:59 Fluoxetine HCl (PROzac) 40 mg DAILY ORAL 06/19/20 09:00 07/19/20 08:59 06/24/20 09:20 Gabapentin (Neurontin) 1,200 mg TWICE A DAY ORAL 06/18/20 18:00 07/18/20 17:59 06/24/20 17:11 Insulin Aspart (NovoLOG) BEFORE MEALS AND HS SUBQ 06/18/20 16:30 09/16/20 16:29 06/25/20 06:25 Levothyroxine Sodium (Synthroid) 125 mcg ACBREAKFAST ORAL 06/19/20 06:30 07/19/20 06:29 06/25/20 06:20 Magnesium Hydroxide (Mom) 30 ml DAILYPRN PRN ORAL Constipation 06/18/20 17:45 07/18/20 17:44 Metoprolol Tartrate (Lopressor) 10 mg Q4H PRN IVP HR>120 06/19/20 17:15 09/17/20 17:14 Nitroglycerin (Ntg) 0.4 mg Q5M X 3 DOSES PRN SL Prn Chest Pain 06/18/20 13:00 07/18/20 12:59 Ondansetron HCl (Zofran) 4 mg Q6H PRN IVP Nausea & Vomiting 06/18/20 13:00 07/18/20 12:59 Polyethylene Glycol (Miralax) 17 gm HSPRN PRN ORAL Constipation 06/18/20 13:00 07/18/20 12:59 Tamsulosin HCl (Flomax) 0.4 mg BEDTIME ORAL 06/23/20 21:00 07/23/20 20:59 06/24/20 20:33 Zolpidem Tartrate (Ambien) 5 mg HSPRN PRN ORAL Insomnia 06/18/20 17:45 06/25/20 17:44 Laboratory Tests 06/24/20 11:46: POC Whole Blood Glucose 152H 06/24/20 17:05: POC Whole Blood Glucose 115H 06/25/20 05:10: White Blood Count 8.8, Red Blood Count 2.92L, Hemoglobin 8.3L, Hematocrit 26.4L, Mean Corpuscular Volume 90, Mean Corpuscular Hemoglobin 28.4, Mean Corpuscular Hemoglobin Concent 31.5L, Red Cell Distribution Width 14.2, Platelet Count 269, Mean Platelet Volume 6.5, Neutrophils (%) (Auto) 59.4, Lymphocytes (%) (Auto) 25.6, Monocytes (%) (Auto) 6.5, Eosinophils (%) (Auto) 7.3H, Basophils (%) (Auto) 1.2, Sodium Level 137, Potassium Level 3.9, Chloride Level 103, Carbon Dioxide Level 29, Anion Gap 5, Blood Urea Nitrogen 6L, Creatinine 0.9, Estimat Glomerular Filtration Rate > 60, Glucose Level 174H, Calcium Level 8.2L, Thyroid Stimulating Hormone (TSH) 2.212 06/25/20 06:20: POC Whole Blood Glucose 163H Height (Feet): 6 Height (Inches): 0.80 Weight (Pounds): 238 Objective exam stable Edi Green MD Jun 25, 2020 08:00
--- NOTE | 2020-06-25 08:29 | General Progress Note ---
Subjective ROS Limited/Unobtainable: Yes Allergies: Coded Allergies: No Known Allergies (Unverified , 07/12/18) Objective Last 24 Hour Vital Signs Date Time Temp Pulse Resp B/P (MAP) Pulse Ox O2 Delivery O2 Flow Rate FiO2 06/25/20 04:00 98.7 73 21 144/72 (96) 96 06/25/20 04:00 88 06/25/20 00:00 81 06/25/20 00:00 99.1 66 19 123/51 (75) 96 06/24/20 21:00 Room Air 06/24/20 20:00 74 06/24/20 20:00 99.7 68 20 117/60 (79) 95 06/24/20 16:00 97.9 71 18 152/70 (97) 97 06/24/20 16:00 81 06/24/20 13:37 97.7 66 20 144/70 (94) 97 06/24/20 12:00 77 06/24/20 12:00 99.3 65 18 143/67 (92) 98 06/24/20 09:00 Room Air Intake and Output 06/24/20 06/25/20 19:00 07:00 Intake Total 615 ml 1020 ml Output Total 1500 ml 1800 ml Balance -885 ml -780 ml Intake Oral 240 ml 270 ml IV Total 375 ml 750 ml Output Urine Total 1500 ml 1800 ml # Voids 1 Laboratory Tests 06/24/20 11:46: POC Whole Blood Glucose 152H 06/24/20 17:05: POC Whole Blood Glucose 115H 06/25/20 05:10: White Blood Count 8.8, Red Blood Count 2.92L, Hemoglobin 8.3L, Hematocrit 26.4L, Mean Corpuscular Volume 90, Mean Corpuscular Hemoglobin 28.4, Mean Corpuscular Hemoglobin Concent 31.5L, Red Cell Distribution Width 14.2, Platelet Count 269, Mean Platelet Volume 6.5, Neutrophils (%) (Auto) 59.4, Lymphocytes (%) (Auto) 25.6, Monocytes (%) (Auto) 6.5, Eosinophils (%) (Auto) 7.3H, Basophils (%) (Auto) 1.2, Sodium Level 137, Potassium Level 3.9, Chloride Level 103, Carbon Dioxide Level 29, Anion Gap 5, Blood Urea Nitrogen 6L, Creatinine 0.9, Estimat Glomerular Filtration Rate > 60, Glucose Level 174H, Calcium Level 8.2L, Thyroid Stimulating Hormone (TSH) 2.212 06/25/20 06:20: POC Whole Blood Glucose 163H Height (Feet): 6 Height (Inches): 0.80 Weight (Pounds): 238 General Appearance: no apparent distress EENT: normal ENT inspection Neck: normal alignment Cardiovascular: normal rate Respiratory/Chest: decreased breath sounds Abdomen: normal bowel sounds, non tender, soft Extremities: non-tender Assessment/Plan Problem List: (1) LGI bleed ICD Codes: K92.2 - Gastrointestinal hemorrhage, unspecified SNOMED: 36376489 (2) History of diabetes mellitus ICD Codes: Z86.39 - Personal history of other endocrine, nutritional and metabolic disease SNOMED: 432042161 (3) Rectal bleeding ICD Codes: K62.5 - Hemorrhage of anus and rectum SNOMED: 43020854 Assessment/Plan: s/p EGD and colonoscopy: SUMMARY OF FINDINGS: 1. Gastric submucosal lesion, see above for details, status post biopsy. 2. Gastritis, status post biopsy. 3. Significant diverticulosis. 4. Internal hemorrhoids. stable H&H needs out patient fu for EUS urology in put appreciated will Hunter Victor MD Jun 25, 2020 08:29
[2020-06-25] MEDS: Ascorbic Acid 500mg tab ORAL SCH (08:49)
[2020-06-25 12:00] VITALS: BP 128/66
--- NOTE | 2020-06-25 13:08 | Pulmonology Progress Note ---
Subjective ROS Limited/Unobtainable: Yes Allergies: Coded Allergies: No Known Allergies (Unverified , 07/12/18) Objective Last 24 Hour Vital Signs Date Time Temp Pulse Resp B/P (MAP) Pulse Ox O2 Delivery O2 Flow Rate FiO2 06/25/20 12:00 97.5 64 20 128/66 (86) 97 06/25/20 12:00 71 06/25/20 09:00 Room Air 06/25/20 08:00 59 06/25/20 08:00 97.5 69 18 137/63 (87) 98 06/25/20 04:00 98.7 73 21 144/72 (96) 96 06/25/20 04:00 88 06/25/20 00:00 81 06/25/20 00:00 99.1 66 19 123/51 (75) 96 06/24/20 21:00 Room Air 06/24/20 20:00 74 06/24/20 20:00 99.7 68 20 117/60 (79) 95 06/24/20 16:00 97.9 71 18 152/70 (97) 97 06/24/20 16:00 81 06/24/20 13:37 97.7 66 20 144/70 (94) 97 Intake and Output 06/24/20 06/25/20 19:00 07:00 Intake Total 615 ml 1020 ml Output Total 1500 ml 1800 ml Balance -885 ml -780 ml Intake Oral 240 ml 270 ml IV Total 375 ml 750 ml Output Urine Total 1500 ml 1800 ml # Voids 1 General Appearance: WD/WN HEENT: normocephalic, atraumatic Respiratory: chest wall non-tender, lungs clear, normal breath sounds Cardiovascular: normal peripheral pulses, normal rate, regular rhythm Abdomen: normal bowel sounds, soft, non tender, no organomegaly Genitourinary: normal external genitalia Extremities: no cyanosis Skin: no rash 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 grossly normal Laboratory Tests 06/24/20 17:05: POC Whole Blood Glucose 115H 06/25/20 05:10: White Blood Count 8.8, Red Blood Count 2.92L, Hemoglobin 8.3L, Hematocrit 26.4L, Mean Corpuscular Volume 90, Mean Corpuscular Hemoglobin 28.4, Mean Corpuscular Hemoglobin Concent 31.5L, Red Cell Distribution Width 14.2, Platelet Count 269, Mean Platelet Volume 6.5, Neutrophils (%) (Auto) 59.4, Lymphocytes (%) (Auto) 25.6, Monocytes (%) (Auto) 6.5, Eosinophils (%) (Auto) 7.3H, Basophils (%) (Auto) 1.2, Sodium Level 137, Potassium Level 3.9, Chloride Level 103, Carbon Dioxide Level 29, Anion Gap 5, Blood Urea Nitrogen 6L, Creatinine 0.9, Estimat Glomerular Filtration Rate > 60, Glucose Level 174H, Calcium Level 8.2L, Thyroid Stimulating Hormone (TSH) 2.212 06/25/20 06:20: POC Whole Blood Glucose 163H 06/25/20 11:14: POC Whole Blood Glucose 117H Current Medications Medications (Trade) Dose Ordered Sig/Amanda Route PRN Reason Start Time Stop Time Status Last Admin Dose Admin Acetaminophen (Tylenol) 650 mg Q4H PRN ORAL fever 06/18/20 13:00 07/18/20 12:59 Acetaminophen (Tylenol) 650 mg Q4H PRN ORAL Mild Pain (Pain Scale 1-3) 06/18/20 17:45 07/18/20 17:44 Acetaminophen/ Hydrocodone Bitart ([place] 5/325) 1 tab Q4H PRN ORAL Moderate Pain (Pain Scale 4-6) 06/18/20 17:45 06/25/20 17:44 06/21/20 18:12 Acetaminophen/ Hydrocodone Bitart ([place] 5/325) 2 tab Q4H PRN ORAL Severe Pain (Pain Scale 7-10) 06/18/20 17:45 06/25/20 17:44 Al Hydroxide/Mg Hydroxide (Mylanta II) 30 ml Q4H PRN ORAL STOMACH UPSET 06/18/20 17:45 07/18/20 17:44 Ascorbic Acid (Vitamin C) 500 mg DAILY ORAL 06/19/20 09:00 07/19/20 08:59 06/25/20 08:49 Atorvastatin Calcium (Lipitor) 80 mg BEDTIME ORAL 06/18/20 21:00 09/16/20 20:59 06/24/20 20:32 Dextrose (Dextrose 50%) 25 ml Q30M PRN IV Hypoglycemia 06/18/20 13:00 09/16/20 12:59 Dextrose (Dextrose 50%) 50 ml Q30M PRN IV Hypoglycemia 06/18/20 13:00 09/16/20 12:59 Dextrose/ Electrolytes 1,000 ml @ 75 mls/hr [id number] IV 06/20/20 16:00 07/20/20 15:59 06/25/20 02:00 Diphenhydramine HCl (Benadryl) 25 mg Q6H PRN ORAL Itching/Pruritis 06/18/20 13:00 07/18/20 12:59 Fluoxetine HCl (PROzac) 40 mg DAILY ORAL 06/19/20 09:00 07/19/20 08:59 06/25/20 08:49 Gabapentin (Neurontin) 1,200 mg TWICE A DAY ORAL 06/18/20 18:00 07/18/20 17:59 06/25/20 08:49 Insulin Aspart (NovoLOG) BEFORE MEALS AND HS SUBQ 06/18/20 16:30 09/16/20 16:29 06/25/20 06:25 Levothyroxine Sodium (Synthroid) 125 mcg ACBREAKFAST ORAL 06/19/20 06:30 07/19/20 06:29 06/25/20 06:20 Magnesium Hydroxide (Mom) 30 ml DAILYPRN PRN ORAL Constipation 06/18/20 17:45 07/18/20 17:44 Metoprolol Tartrate (Lopressor) 10 mg Q4H PRN IVP HR>120 06/19/20 17:15 09/17/20 17:14 Nitroglycerin (Ntg) 0.4 mg Q5M X 3 DOSES PRN SL Prn Chest Pain 06/18/20 13:00 07/18/20 12:59 Ondansetron HCl (Zofran) 4 mg Q6H PRN IVP Nausea & Vomiting 06/18/20 13:00 07/18/20 12:59 Polyethylene Glycol (Miralax) 17 gm HSPRN PRN ORAL Constipation 06/18/20 13:00 07/18/20 12:59 Tamsulosin HCl (Flomax) 0.4 mg BEDTIME ORAL 06/23/20 21:00 07/23/20 20:59 06/24/20 20:33 Zolpidem Tartrate (Ambien) 5 mg HSPRN PRN ORAL Insomnia 06/18/20 17:45 06/25/20 17:44 Assessment/Plan Problems: (1) Rectal bleeding (2) Renal mass (3) History of diabetes mellitus (4) Hx of essential hypertension Assessment/Plan all reviewed PSA 40 MRI of kidney":Solid mass in the lower pole of the right kidney measuring approximately 2.2 cm. Renal cell carcinoma not excluded. endoscopy done, biopsy done H2 blockers iv fluids sliding scale prbc prn check electrolytes dvt prophylaxis symptomatic treatment Francisco Javier Real MD Jun 25, 2020 13:08
[2020-06-25] MEDS ORDERED: FLOMAX0.4 MG ORAL (13:11)
[2020-06-25] MEDS ORDERED: MYLANTA II30 ML ORAL (13:11)
[2020-06-25] MEDS ORDERED: FLUOXETINE HCL20 MG ORAL (13:11)
[2020-06-25] MEDS ORDERED: AMBIEN5 MG ORAL (13:11)
--- NOTE | 2020-06-25 13:27 | Diagnostic Imaging Report ---
Indication: Shortness of breath Technique: One view of the chest Comparison: 06/18/2020 Findings: There is elevation the left hemidiaphragm. Lungs and pleural spaces are clear. The heart size is normal. 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 Impression: No acute process
--- NOTE | 2020-06-25 13:49 | Surgery Progress Note ---
Surgery Progress Note Subjective Additional Comments no acute events comfortable stable labs stable pending path Objective Last 24 Hour Vital Signs Date Time Temp Pulse Resp B/P (MAP) Pulse Ox O2 Delivery O2 Flow Rate FiO2 06/25/20 12:00 97.5 64 20 128/66 (86) 97 06/25/20 12:00 71 06/25/20 09:00 Room Air 06/25/20 08:00 59 06/25/20 08:00 97.5 69 18 137/63 (87) 98 06/25/20 04:00 98.7 73 21 144/72 (96) 96 06/25/20 04:00 88 06/25/20 00:00 81 06/25/20 00:00 99.1 66 19 123/51 (75) 96 06/24/20 21:00 Room Air 06/24/20 20:00 74 06/24/20 20:00 99.7 68 20 117/60 (79) 95 06/24/20 16:00 97.9 71 18 152/70 (97) 97 06/24/20 16:00 81 I&O Intake and Output 06/24/20 06/25/20 19:00 07:00 Intake Total 615 ml 1020 ml Output Total 1500 ml 1800 ml Balance -885 ml -780 ml Intake Oral 240 ml 270 ml IV Total 375 ml 750 ml Output Urine Total 1500 ml 1800 ml # Voids 1 Cardiovascular: RSR Respiratory: clear Abdomen: soft, non-tender, present bowel sounds Extremities: no edema, no tenderness, no cyanosis Laboratory Tests Test 06/24/20 17:05 06/25/20 05:10 06/25/20 06:20 06/25/20 11:14 POC Whole Blood Glucose 115 MG/DL (74-106) H 163 MG/DL (74-106) H 117 MG/DL (74-106) H White Blood Count 8.8 K/UL (4.8-10.8) Red Blood Count 2.92 M/UL (4.70-6.10) L Hemoglobin 8.3 G/DL (14.2-18.0) L Hematocrit 26.4 % (42.0-52.0) L Mean Corpuscular Volume 90 FL (80-99) Mean Corpuscular Hemoglobin 28.4 PG (27.0-31.0) Mean Corpuscular Hemoglobin Concent 31.5 G/DL (32.0-36.0) L Red Cell Distribution Width 14.2 % (11.6-14.8) Platelet Count 269 K/UL (150-450) Mean Platelet Volume 6.5 FL (6.5-10.1) Neutrophils (%) (Auto) 59.4 % (45.0-75.0) Lymphocytes (%) (Auto) 25.6 % (20.0-45.0) Monocytes (%) (Auto) 6.5 % (1.0-10.0) Eosinophils (%) (Auto) 7.3 % (0.0-3.0) H Basophils (%) (Auto) 1.2 % (0.0-2.0) Sodium Level 137 MMOL/L (136-145) Potassium Level 3.9 MMOL/L (3.5-5.1) Chloride Level 103 MMOL/L (98-107) Carbon Dioxide Level 29 MMOL/L (21-32) Anion Gap 5 mmol/L (5-15) Blood Urea Nitrogen 6 mg/dL (7-18) L Creatinine 0.9 MG/DL (0.55-1.30) Estimat Glomerular Filtration Rate > 60 mL/min (>60) Glucose Level 174 MG/DL (74-106) H Calcium Level 8.2 MG/DL (8.5-10.1) L Thyroid Stimulating Hormone (TSH) 2.212 uiU/mL (0.358-3.740) Plan Problems: (1) Rectal bleeding Assessment & Plan: 80M bright red blood per rectum. on eval in ED noted to have blood loose diarrhea incontinence. labs noted. abd exam benign. npo iv fluids ct a/p with contrast ordered eval mass, diverticulum, lesion gi consult serial h/h MRI noted. urology consult eval RCC will follow with exam and recs SUMMARY OF FINDINGS: 1. Gastric submucosal lesion, see above for details, status post biopsy. 2. Gastritis, status post biopsy. 3. Significant diverticulosis. 4. Internal hemorrhoids. RECOMMENDATIONS: 1. Resume diet. 2. Follow labs. 3. Follow biopsy results. 4. The patient is to get outpatient followup for possible EUS for the gastric submucosal lesion. There is a questioned mass in the right kidney demonstrates signal hypointensity on T2 imaging. On postcontrast imaging this mass is noted to enhance fairly uniformly. This mass measures approximately 2.3 x 2.1 x 2.3 cm. There is relative washout of enhancement of the mass compared to the adjacent normal renal parenchyma on more delayed postcontrast imaging. There has been interval development of mild right-sided hydronephrosis, likely related to degree of obstruction from the right ureteral stone noted on prior CT. Known nonobstructing stone in the lower pole the left kidney better appreciated on concurrent CT. No evidence of hydronephrosis on the left. Hepatic signal is homogeneous. No gallstones or pericholecystic inflammatory changes appreciated. Abdominal aorta normal in caliber. Spleen demonstrates normal homogenous signal. Adrenal glands unremarkable. Pancreas unremarkable. IMPRESSION: Solid mass in the lower pole of the right kidney measuring approximately 2.2 cm. Renal cell carcinoma not excluded. Urology follow-up recommended. Interval development of mild right-sided hydronephrosis, likely related to a degree of obstruction from right ureteral calculus better seen on prior CT. Lower chest:: Left greater than right bibasilar subsegmental atelectasis. Mild cardiomegaly. Hepatobiliary:: Genitourinary:: In the right lower renal pole, there is a hyperdense mass measuring 2.3 x 2.1 cm. There is a 10 mm left lower pole renal calculus. No hydronephrosis. Mild prostatomegaly. Adrenals:: Unremarkable. Pancreas:: Unremarkable. Gastrointestinal:: No evidence of obstruction. There is extensive colonic diverticulosis without evidence of acute diverticulitis. Appendix is normal. There is mild eccentric wall thickening of the rectum (4:78). Spleen: : Unremarkable. Peritoneum:: There is rectus sheath muscle diastases with broad-based herniation of the lower abdominal wall containing multiple nonobstructed loops of bowel. Bones and soft tissues:: There are multilevel discogenic degenerative changes of the visualized spine. IMPRESSION: 1. Mild eccentric wall thickening of the rectum, which may be be inflammatory/reactive, due to partial underdistention, or reflective adherent stool. Recommend correlation with recent colonoscopy. 2. Colonic diverticulosis without evidence of acute diverticulitis 3. Nonobstructing left nephrolithiasis. 4. Hyperdense right lower pole renal mass, which could reflect complex/hemorrhagic cyst, but enhancing lesion such as neoplasm is not excluded. Recommend follow-up on nonemergent basis with contrast-enhanced MRI or CT (renal protocol) for more complete characterization. DAILY ESTIMATED NEEDS: Needs based on DM, wound/ 89kg abw 25-30 kcals/kg 7333-5715 total kcals 1.25-1.5 g protein/kg 111-133 g total protein 25-30 mL/kg 2314-5909 total fluid mLs NUTRITION DIAGNOSIS: Increased kcal/prot needs R/T wound healing as evidenced by admitted w/ sacral stage 3 wound. CURRENT DIET: cardiac PO DIET RECOMMENDATIONS: CCHO MED, SOFT ADDITIONAL RECOMMENDATIONS: * Standing wt as able for accurate CBW * Maintain D5 IVF while NPO to prevent hypoglycemia: h/o DM * Wound healing: MVI x 1, Vit C 500mg QD, ZnSO4 220mg QD x 10 days Edil BID w/ oral diet * Add high pro snacks w/ variable po intake (2) History of diabetes mellitus Jonatan Hurtado Jun 25, 2020 13:49
[2020-06-25 16:00] VITALS: BP 143/68
[2020-06-25] MEDS ORDERED: NS 500ML ONE (16:39)
[2020-06-25] MEDS ORDERED: Tubing IV Secondary IV ONE (16:39)
[2020-06-25] MEDS ORDERED: Tubing IV Blood Pump IV ONE (16:39)
[2020-06-25] MEDS ORDERED: D5 1/2NS 1000ml IV ONE (16:44)
--- NOTE | 2020-06-25 18:50 | Internal Med Progress Note ---
Subjective Date of Service: Jun 25, 2020 Physician Name PoppyKosta Attending Physician Jeff Jarvis MD Current Medications Medications (Trade) Dose Ordered Sig/Amanda Route PRN Reason Start Time Stop Time Status Last Admin Dose Admin Acetaminophen (Tylenol) 650 mg Q4H PRN ORAL fever 06/18/20 13:00 07/18/20 12:59 Acetaminophen (Tylenol) 650 mg Q4H PRN ORAL Mild Pain (Pain Scale 1-3) 06/18/20 17:45 07/18/20 17:44 Al Hydroxide/Mg Hydroxide (Mylanta II) 30 ml Q4H PRN ORAL STOMACH UPSET 06/18/20 17:45 07/18/20 17:44 Ascorbic Acid (Vitamin C) 500 mg DAILY ORAL 06/19/20 09:00 07/19/20 08:59 06/25/20 08:49 Atorvastatin Calcium (Lipitor) 80 mg BEDTIME ORAL 06/18/20 21:00 09/16/20 20:59 06/24/20 20:32 Dextrose (Dextrose 50%) 25 ml Q30M PRN IV Hypoglycemia 06/18/20 13:00 09/16/20 12:59 Dextrose (Dextrose 50%) 50 ml Q30M PRN IV Hypoglycemia 06/18/20 13:00 09/16/20 12:59 Dextrose/ Electrolytes 1,000 ml @ 75 mls/hr [id number] IV 06/20/20 16:00 07/20/20 15:59 06/25/20 02:00 Diphenhydramine HCl (Benadryl) 25 mg Q6H PRN ORAL Itching/Pruritis 06/18/20 13:00 07/18/20 12:59 Fluoxetine HCl (PROzac) 40 mg DAILY ORAL 06/19/20 09:00 07/19/20 08:59 06/25/20 08:49 Gabapentin (Neurontin) 1,200 mg TWICE A DAY ORAL 06/18/20 18:00 07/18/20 17:59 06/25/20 08:49 Insulin Aspart (NovoLOG) BEFORE MEALS AND HS SUBQ 06/18/20 16:30 09/16/20 16:29 06/25/20 06:25 Levothyroxine Sodium (Synthroid) 125 mcg ACBREAKFAST ORAL 06/19/20 06:30 07/19/20 06:29 06/25/20 06:20 Magnesium Hydroxide (Mom) 30 ml DAILYPRN PRN ORAL Constipation 06/18/20 17:45 07/18/20 17:44 Metoprolol Tartrate (Lopressor) 10 mg Q4H PRN IVP HR>120 06/19/20 17:15 09/17/20 17:14 Nitroglycerin (Ntg) 0.4 mg Q5M X 3 DOSES PRN SL Prn Chest Pain 06/18/20 13:00 07/18/20 12:59 Ondansetron HCl (Zofran) 4 mg Q6H PRN IVP Nausea & Vomiting 06/18/20 13:00 07/18/20 12:59 Polyethylene Glycol (Miralax) 17 gm HSPRN PRN ORAL Constipation 06/18/20 13:00 07/18/20 12:59 Tamsulosin HCl (Flomax) 0.4 mg BEDTIME ORAL 06/23/20 21:00 07/23/20 20:59 06/24/20 20:33 Allergies: Coded Allergies: No Known Allergies (Unverified , 07/12/18) ROS Limited/Unobtainable: Yes Subjective 80 YO M admitted with rectal bleeding. Cover for Int Med-DR Jarvis. Now gastric lesion. S/P endoscopy and colonoscopy 06/21/20 Objective Last Vital Signs Date Time Temp Pulse Resp B/P (MAP) Pulse Ox O2 Delivery O2 Flow Rate FiO2 06/25/20 16:00 98.1 70 18 143/68 (93) 98 06/25/20 09:00 Room Air 06/21/20 13:10 3 Laboratory Tests Test 06/25/20 05:10 06/25/20 06:20 06/25/20 11:14 06/25/20 16:40 White Blood Count 8.8 K/UL (4.8-10.8) Red Blood Count 2.92 M/UL (4.70-6.10) L Hemoglobin 8.3 G/DL (14.2-18.0) L Hematocrit 26.4 % (42.0-52.0) L Mean Corpuscular Volume 90 FL (80-99) Mean Corpuscular Hemoglobin 28.4 PG (27.0-31.0) Mean Corpuscular Hemoglobin Concent 31.5 G/DL (32.0-36.0) L Red Cell Distribution Width 14.2 % (11.6-14.8) Platelet Count 269 K/UL (150-450) Mean Platelet Volume 6.5 FL (6.5-10.1) Neutrophils (%) (Auto) 59.4 % (45.0-75.0) Lymphocytes (%) (Auto) 25.6 % (20.0-45.0) Monocytes (%) (Auto) 6.5 % (1.0-10.0) Eosinophils (%) (Auto) 7.3 % (0.0-3.0) H Basophils (%) (Auto) 1.2 % (0.0-2.0) Sodium Level 137 MMOL/L (136-145) Potassium Level 3.9 MMOL/L (3.5-5.1) Chloride Level 103 MMOL/L (98-107) Carbon Dioxide Level 29 MMOL/L (21-32) Anion Gap 5 mmol/L (5-15) Blood Urea Nitrogen 6 mg/dL (7-18) L Creatinine 0.9 MG/DL (0.55-1.30) Estimat Glomerular Filtration Rate > 60 mL/min (>60) Glucose Level 174 MG/DL (74-106) H Calcium Level 8.2 MG/DL (8.5-10.1) L Thyroid Stimulating Hormone (TSH) 2.212 uiU/mL (0.358-3.740) POC Whole Blood Glucose 163 MG/DL (74-106) H 117 MG/DL (74-106) H 144 MG/DL (74-106) H Intake and Output0 06/24/20 06/25/20 19:00 07:00 Intake Total 615 ml 1095 ml Output Total 1500 ml 1800 ml Balance -885 ml -705 ml Intake Oral 240 ml 270 ml IV Total 375 ml 825 ml Output Urine Total 1500 ml 1800 ml # Voids 1 Objective PHYSICAL EXAMINATION: GENERAL: Patient is well-developed, well-nourished male, in no apparent distress. HEENT: Eyes, pupils equal and responsive to light and accommodation. Extraocular movements are intact. NECK: Supple without lymphadenopathy. CHEST: Lungs are clear to auscultation bilaterally without wheezes or rales. CARDIOVASCULAR: Regular rate. S1 and S2 are normal without murmurs, rubs, or gallops. ABDOMEN: Soft, nontender, and nondistended. Positive bowel sounds. No evidence of hepatosplenomegaly. Currently, no rebound or guarding noted. EXTREMITIES: Negative for clubbing, cyanosis, or edema. RECTAL/GENITAL: Not performed. NEUROLOGIC: Cranial nerves II through XII are grossly intact without focal deficits. Assessment/Plan Assessment/Plan ASSESSMENT: This is a 80-year-old male. 1. Lower gastrointestinal hemorrhage. 2. Diabetes type 2. 3. Hypertension. 4. Prostate cancer. 5. Benign prostatic hypertrophy. 6. Coronary artery disease. 7. Hypercholesterolemia. 8. Hypothyroidism. 9. Sinus tachycardia 10. gastric lesion 11. right renal mass TREATMENT: 1. Lower gastrointestinal hemorrhage/rectal bleeding. CT=diverticulosis. Gastroenterology consultation = Dr. Hunter Cedeno. S/P endoscopy and colonoscopy=gastric lesion We will follow recommendations of Gastroenterology. 2. Diabetes type 2. Continue NovoLog sliding scale. 3. Hypertension. Continue metoprolol 4. Coronary artery disease. 5. Hypercholesterolemia. Continue atorvastatin as above. 6. Hypothyroidism. Continue Synthroid as above. 7. Benign prostatic hypertrophy. 8. Cardiology=Dr Frank 9. DVT prophylax: SCD 10. await gastric biopsy result 11. Urology=Dr Green; repeat CT renal mass as outpatient Kosta Mcwilliams MD Jun 25, 2020 18:50
--- NOTE | 2020-06-26 10:57 | Discharge Summary ---
Discharge Summary Discharge Summary _ DATE OF ADMISSION: 06/18/2020 DATE OF DISCHARGE: 06/25/2020 DISCHARGED BY: Dr Jarvis REASON FOR ADMISSION: 80 years old male, resident of senior living facility, with past medical history of hypertension, diabetes mellitus, history of prostate cancer, diagnosed with COVID-19 in May 2020, was brought from the senior living facility with rectal bleeding , noted by the nursing staff. Patient denied abdominal pain. Patient denied taking any blood thinners. No nausea or vomiting. Upon evaluation vital signs we re stable. Laboratory work-up revealed mild leukocytosis WBC 12.5, hemoglobin 12.2, hematocrit 36.5,platelet count 263. Stable electrolytes. BUN 28, creatinine 1.2. Glucose 173. Stable LFT and lipase. EKG revealed sinus rhythm , no acute ischemic changes. Chest x-ray revealed no evidence of acute cardiopulmonary pathology. Urinalysis revealed no evidence of UTI. Patient started on the IV fluids and Protonix. Patient remained hemodynamically stable and admitted to telemetry floor for further management. CONSULTANTS: transit mixer driver Dr. Aceves pulmonary Dr. Real GI specialist Dr. Cedeno urologist Dr. Green surgery [facility] COURSE: Patient admitted to telemetry floor. Patient was kept n.p.o. and started on the IV fluids. Hemoglobin and hematocrit were closely monitored with goal to keep hemoglobin above 7. Blood sugar was managed with sliding scale of insulin. DVT prophylaxis provided. GI specialist and surgery followed. CT scan of the abdomen and pelvis revealed mild eccentric wall thickening of the rectum , which may be inflammatory/reactive due to partial underdistention or reflective adherent stool. Recommend correlation with colonoscopy. Colonic diverticulosis without evidence of diverticulitis . Nonobstructing left nephrolithiasis. Hyperdense right lower pole renal mass , could represent complex/hemorrhagic cyst , but enhancing lesion such as neoplasm was not excluded. MRI of the abdomen revealed solid mass in the lower pole of the right kidney, measuring approximately 2.2 cm. Renal cell carcinoma was not excluded. Interval development of mild right-sided hydronephrosis , likely related to a degree of obstruction from right ureteral calculus Hemoglobin dropped from 12.2 down to 8.8 on 06/21. Stool for occult blood was positive. Patient had upper endoscopy with biopsy and colonoscopy , which revealed gastric submucosal lesion , status post biopsy ; gastritis, status post biopsy; significant diverticulosis and internal hemorrhoids. Diet was resumed. PPI continued. At the time of this dictation pathology results still pending. GI specialist recommended outpatient follow-up for possible EUS for the gastric submucosal lesion. Follow up with pathology results. Strict aspiration precautions maintained . Patient started on diet and was advanced as tolerated. Patient was able to tolerate diet. Surgeon closely followed. Abdominal exams appeared benign. No need for surgical intervention at this time No further rectal bleeding . Prior to discharge hemoglobin 8.3 , hematocrit 26.4. Urology consult was requested, given findings of right renal mass. Patient with a history of prostate cancer . Flomax was added. PSA significantly elevated -41, it was unclear if it was advanced prostate cancer at this time. Urologist recommended bone scan . Patient may need androgen deprivation therapy. Renal function remained stable. Urologist recommended further work-up as outpatient : repeat CT scan of the renal mass as outpatient with further follow-up. Initial mild leukocytosis resolved , probably was reactive. Repeated chest x-ray revealed no acute process. Pulse oximetry remained stable on room air. Patient was reported to have sinus tachycardia with heart rate 150; no strips were recovered by cardiolgost to see. Audio Visual Manager seen and evaluated patient . Blood pressure was managed with beta-curtis . Sinus tachycardia resolved . Patient remained hemodynamically stable Blood sugar was managed with sliding scale of insulin . Bowel regimen instituted. Levothyroxine continued. TSH within normal limits. Supportive care provided. Patient clinically stabilized and was ready for discharge to senior living facility for continuation of care. FINAL DIAGNOSES: Lower GI bleeding/rectal bleeding Status post upper endoscopy with biopsy and colonoscopy Acute blood loss anemia Right renal mass, possible RCC Nephrolithiasis with mild right hydronephrosis History of COVID-May 2020 Hypertension Diabetes Sinus tachycardia- resolved History of prostate cancer BPH Hypothyroidism DISCHARGE MEDICATIONS: See Medication Reconciliation list. DISCHARGE INSTRUCTIONS: Patient was discharged to the senior living facility. Follow up with medical doctor at the facility. Patient to repeat CT of the abdominal and pelvis with attention to right renal mass as recommended by urologist. Further work-up for right renal mass as outpatient. I have been assigned to dictate discharge summary for this account. . Noris Hillman NP Jun 26, 2020 10:57
== END 2020-06-25 19:45 | DRG 378 ==
LOC: EDBD 11:46 → EDBEDREQ 12:22 → EMR 12:59 → 2E 13:09 → EDBEDREQ 15:27
PROC: 0DB78ZX Excision of Stomach, Pylorus, Via Natural or Artificial Opening Endoscopic, Diagnostic (ICD-10-PCS; principal; 2020-06-21 12:27)
PROC: 0DB68ZX Excision of Stomach, Via Natural or Artificial Opening Endoscopic, Diagnostic (ICD-10-PCS; principal; 2020-06-21 12:27)
PROC: 0DJD8ZZ Inspection of Lower Intestinal Tract, Via Natural or Artificial Opening Endoscopic (ICD-10-PCS; principal; 2020-06-21 12:27)
DX: K57.91 Diverticulosis of intestine, part unspecified, without perforation or abscess with bleeding (principal); D62 Acute posthemorrhagic anemia; C64.9 Malignant neoplasm of unspecified kidney, except renal pelvis; N13.2 Hydronephrosis with renal and ureteral calculous obstruction; K64.8 Other hemorrhoids; E11.9 Type 2 diabetes mellitus without complications; I10 Essential (primary) hypertension; N40.0 Benign prostatic hyperplasia without lower urinary tract symptoms; K29.70 Gastritis, unspecified, without bleeding; E78.00 Pure hypercholesterolemia, unspecified; E03.9 Hypothyroidism, unspecified; Z79.82 Long term (current) use of aspirin; Z79.4 Long term (current) use of insulin; I25.10 Atherosclerotic heart disease of native coronary artery without angina pectoris; Z86.19 Personal history of other infectious and parasitic diseases; Z85.46 Personal history of malignant neoplasm of prostate; R00.0 Tachycardia, unspecified; M17.0 Bilateral primary osteoarthritis of knee; Z88.8 Allergy status to other drugs, medicaments and biological substances; E04.2 Nontoxic multinodular goiter; M48.02 Spinal stenosis, cervical region; K31.9 Disease of stomach and duodenum, unspecified
CPT/HCPCS: 36415; 71045; 74177; 74183; 80048; 80053; 81003; 82150; 82248; 82270; 82962; 83615; 83690; 83735; 83880; 84100; 84153; 84443; 84484; 85025; 85044; 85610; 85651; 85730; 86850; 86900; 86901; 87081; 93005; 94003; 94150; 96361; 96374; 99291; A9585; J1815; J7030; U0002

== ENCOUNTER 2020-09-17 13:45 | Outpatient (CLI) | payer MEDICARE, OTHER ==
[~2020-09-17 13:45] MED LIST changes: +AMBIEN5 MG ORAL; +ASPIRIN81 MG ORAL; +ATORVASTATIN CA80 MG ORAL; +FLOMAX0.4 MG ORAL; +FLUOXETINE HCL10 M2 ORAL; +FLUOXETINE HCL20 MG ORAL; +FLUOXETINE HCL40 MG ORAL; +FLUTICASONE PRO16 G1 NASAL; +GABAPENTIN400 MG ORAL; +GUAIFENESI100 MG/5 M ORAL; +LANTUS SOL100 UNIT/1 SUBQ; +LIDOCAINE HC28.35 GM TP; +MULTI COMPLETE1 EACH PO; +MULTIVITAMIN WI15 MG PO; +MUSCLE RUB CRE113 GM TP; +MYLANTA II30 ML ORAL; +POLYETHYLENE GL17 GM ORAL; +REFRESH LIQUIGE15 ML OP; +TYLENOL WITH C1 EACH ORAL; +VITAMIN C500 M1 ORAL
--- NOTE | 2020-09-17 15:32 | General Progress Note ---
Subjective ROS Limited/Unobtainable: Yes Allergies: Coded Allergies: No Known Allergies (Unverified , 07/12/18) Objective General Appearance: alert EENT: normal ENT inspection Neck: supple Cardiovascular: normal rate Respiratory/Chest: decreased breath sounds Abdomen: normal bowel sounds, non tender, soft Extremities: non-tender Assessment/Plan Assessment/Plan: Assessment/Plan Problem List: (1) LGI bleed ICD Codes: K92.2 - Gastrointestinal hemorrhage, unspecified SNOMED: 18894905 (2) History of diabetes mellitus ICD Codes: Z86.39 - Personal history of other endocrine, nutritional and metabolic disease SNOMED: 005277038 (3) Rectal bleeding ICD Codes: K62.5 - Hemorrhage of anus and rectum SNOMED: 60587258 Assessment/Plan: s/p EGD and colonoscopy: SUMMARY OF FINDINGS: 1. Gastric submucosal lesion, see above for details, status post biopsy. 2. Gastritis, status post biopsy. 3. Significant diverticulosis. 4. Internal hemorrhoids. stable H&H needs EUS Hunter Cedeno MD Sep 17, 2020 15:32
[2020-09-18 13:08] VITALS: BP 158/90
[2020-09-18] MEDS ORDERED: FLOMAX0.4 MG ORAL (13:23)
[2020-09-18] MEDS ORDERED: ACETAMINOPHEN-1 EAC1 ORAL (13:23)
[2020-09-18] MEDS ORDERED: OCEAN NASAL SPRAY NASAL (13:23)
== END 2020-09-17 15:45 | disposition home or self-care (01) ==
LOC: PAN 13:45
DX: K92.2 Gastrointestinal hemorrhage, unspecified (principal); Z86.39 Personal history of other endocrine, nutritional and metabolic disease; K62.5 Hemorrhage of anus and rectum; K29.70 Gastritis, unspecified, without bleeding; K57.90 Diverticulosis of intestine, part unspecified, without perforation or abscess without bleeding; K64.8 Other hemorrhoids

== ENCOUNTER → 2020-10-04 | Day surgery (SDC) | payer MEDICARE, OTHER ==
[~2020-10-04] VITALS: Ht 182.9 cm; Wt 101.6 kg
[2020-10-04] VITALS (7 sets, daily range): BP systolic 143–152; BP diastolic 80–92
[~2020-10-04] MED LIST changes: +ACETAMINOPHEN-1 EAC1 ORAL; +MYLANTA PO; +OCEAN NASAL SPRAY NASAL; +VOLTAREN100 G1 TP; +fentaNYL 100 mcg/2 mL IV ONE
[2020-10-04 11:18] LABS: BASOPHILS % (AUTO) 1.4 % (0.0-2.0); EOSINOPHILS % (AUTO) 5.8 % (0.0-3.0); HEMATOCRIT 44.3 % (42.0-52.0); HEMOGLOBIN 13.2 G/DL (14.2-18.0); LYMPHOCYTES % (AUTO) 25.8 % (20.0-45.0); MEAN CORPUSCULAR VOLUME 91 FL (80-99); PLATELET COUNT 279 K/UL (150-450); RED BLOOD COUNT 4.89 M/UL (4.70-6.10); RED CELL DISTRIBUTION WIDTH 14.8 % (11.6-14.8); WHITE BLOOD COUNT 8.4 K/UL (4.8-10.8)
--- NOTE | 2020-10-04 11:26 | Anethesia Preoperative Eval ---
Anesthesia Pre-op PMH/ROS General Date of Evaluation: Oct 04, 2020 Time of Evaluation: 11:22 Anesthesiologist: Lacy ASA Score: ASA 3 Mallampati Score Class I : Soft palate, uvula, fauces, pillars visible Class II: Soft palate, uvula, fauces visible Class III: Soft palate, base of uvula visible Class IV: Only hard plate visible Mallampati Classification: Class III Surgeon: Wilian Diagnosis: Abdominal pain Pancreatic cyst Surgical Procedure: EGD with EUS Anesthesia History: none Social History: smoking - h/o Family History: no anesthesia problems Allergies: Coded Allergies: SIMVASTATIN (Verified Allergy, Unknown, 09/18/20) Medications: see eMAR Patient NPO?: Yes Past Medical History Cardiovascular: Reports: HTN, CAD - stent in place no recent CP; Denies: AK, valve dz, arrhythmia, other Pulmonary: Denies: asthma, COPD, ALESSANDRO, other Gastrointestinal/Genitourinary: Reports: GERD, other - prostate CA s/p Sx; Denies: CRI, ESRD Neurologic/Psychiatric: Reports: depression/anxiety; Denies: dementia, CVA, TIA, other Endocrine: Reports: DM - stable on meds; Denies: hypothyroidism, steroids, other HEENT: Reports: cataract (L) - s/p bilateral Sx, cataract (R) Hematology/Immune: Denies: anemia, DVT, bleeding disorder, other Musculoskeletal/Integumentary: Reports: OA; Denies: RA, DJD, DDD, edema, other Other: obesity PMH Narrative: as above PSxH Narrative: see H&P Anesthesia Pre-op Phys. Exam Physician Exam Last Vital Signs Date Time Temp Pulse Resp B/P (MAP) Pulse Ox O2 Delivery O2 Flow Rate FiO2 10/04/20 11:01 Room Air 10/04/20 10:45 97.3 63 18 149/87 97 Constitutional: NAD Neurologic: CN 2-12 intact Cardiovascular: RRR, no M/R/G Respiratory: CTA Gastrointestinal: S/NT/ND Airway Exam Mallampati Score: Class III MO: limited Neck: stiff ROM: limited Teeth: missing Dentures: no upper, no lower Anesthesia Pre-op A/P Labs Hematology Test 10/04/20 10:40 White Blood Count 8.4 K/UL (4.8-10.8) Red Blood Count 4.89 M/UL (4.70-6.10) Hemoglobin 13.2 G/DL (14.2-18.0) L Hematocrit 44.3 % (42.0-52.0) Mean Corpuscular Volume 91 FL (80-99) Mean Corpuscular Hemoglobin 27.0 PG (27.0-31.0) Mean Corpuscular Hemoglobin Concent 29.9 G/DL (32.0-36.0) L Red Cell Distribution Width 14.8 % (11.6-14.8) Platelet Count 279 K/UL (150-450) Mean Platelet Volume 8.7 FL (6.5-10.1) Neutrophils (%) (Auto) 60.0 % (45.0-75.0) Lymphocytes (%) (Auto) 25.8 % (20.0-45.0) Monocytes (%) (Auto) 7.0 % (1.0-10.0) Eosinophils (%) (Auto) 5.8 % (0.0-3.0) H Basophils (%) (Auto) 1.4 % (0.0-2.0) Risk Assessment & Plan Assessment: ASA 3 Plan: Nathen Adorno MD Oct 04, 2020 11:26
--- NOTE | 2020-10-04 11:45 | Short Stay Surgery H&P ---
History of Present Illness History of Present Illness Chief Complaint see recent H&P HPI Eddie Barlow is a 80 year old male who was admitted on for Pancreatic Cyst Patient History Allergies: Coded Allergies: SIMVASTATIN (Verified Allergy, Unknown, 09/18/20) Medication History Scheduled Ascorbic Acid* (Vitamin C*), 500 MG ORAL DAILY, (Reported) Atorvastatin Calcium* (Lipitor*), 80 MG ORAL BEDTIME, (Reported) Carboxymethylcellulose Sodium (Refresh Liquigel), 1 DROP OP QID, (Reported) Diclofenac Sodium (Voltaren), 4 GM TP BID, (Reported) Fluoxetine Hcl* (Fluoxetine Hcl*), 40 MG ORAL DAILY, (Reported) Gabapentin* (Gabapentin*), 1,200 MG ORAL TWICE A DAY, (Reported) Insulin Glargine (Lantus), 10 UNITS SUBQ DAILY, (Reported) Levothyroxine Sodium* (Levothyroxine Sodium*), 125 MCG ORAL DAILY, (Reported) Multivit-Min/Ferrous Fumarate (Multivitamin with Minerals Tab), 1 TAB PO DAILY, (Reported) Tamsulosin HCl (Flomax), 0.4 MG ORAL BEDTIME [[place] Nasal [place] ], 1 SPRAY NASAL PRN, (Reported) [mylanta 200-200ml], 5 ML PO EVERY 4 HOURS, (Reported) Scheduled PRN Acetaminophen With Codeine 300MG/30MG (T#3)* (Tylenol With Codeine #3 Tablet*), 1 TAB ORAL Q6HR PRN for For Pain, (Reported) Acetaminophen* (Acetaminophen 325MG Tablet*), 650 MG ORAL Q6H PRN for Mild Pain/Temp > 100.5, (Reported) Discontinued Medications Polyethylene Glycol 3350* (Polyethylene Glycol 3350*), 17 GM ORAL BID PRN for Constipation, (Reported) Discontinued Reason: Pt stopped taking med Tamsulosin HCl (Flomax), 0.4 MG ORAL DAILY, (Reported) Discontinued Reason: Pt stopped taking med Zolpidem Tartrate* (Ambien*), 5 MG ORAL HSPRN PRN Discontinued Reason: Pt stopped taking med Physical Exam Vital Signs Last Vital Signs Date Time Temp Pulse Resp B/P (MAP) Pulse Ox O2 Delivery O2 Flow Rate FiO2 10/04/20 11:01 Room Air 10/04/20 10:45 97.3 63 18 149/87 97 Labs Laboratory Tests Test 10/04/20 10:40 White Blood Count 8.4 K/UL (4.8-10.8) Red Blood Count 4.89 M/UL (4.70-6.10) Hemoglobin 13.2 G/DL (14.2-18.0) L Hematocrit 44.3 % (42.0-52.0) Mean Corpuscular Volume 91 FL (80-99) Mean Corpuscular Hemoglobin 27.0 PG (27.0-31.0) Mean Corpuscular Hemoglobin Concent 29.9 G/DL (32.0-36.0) L Red Cell Distribution Width 14.8 % (11.6-14.8) Platelet Count 279 K/UL (150-450) Mean Platelet Volume 8.7 FL (6.5-10.1) Neutrophils (%) (Auto) 60.0 % (45.0-75.0) Lymphocytes (%) (Auto) 25.8 % (20.0-45.0) Monocytes (%) (Auto) 7.0 % (1.0-10.0) Eosinophils (%) (Auto) 5.8 % (0.0-3.0) H Basophils (%) (Auto) 1.4 % (0.0-2.0) Plan Attestation Are the patient's medical conditions optimized for surgery? Hunter Cedeno MD Oct 04, 2020 11:45
--- NOTE | 2020-10-04 11:45 | Pre-Procedure Note/Attestation ---
Pre-Procedure Note/Attestation Complete Prior to Procedure Planned Procedure: not applicable Procedure Narrative: eus Indications for Procedure Pre-Operative Diagnosis: gastric carcinoids Attestation I attest that I discussed the nature of the procedure; its benefits; risks and complications; and alternatives (and the risks and benefits of such alternatives), prior to the procedure, with the patient (or the patient's legal event marketing representative). I attest that, if there was a reasonable possibility of needing a blood tr ansfusion, the patient (or the patient's legal event marketing representative) was given the [facility] standardized written summary, pursuant to the Severiano Johana Blood Safety Act ([place] Health and Safety Code # 1645, as amended). I attest that I re-evaluated the patient just prior to the surgery and that there has been no change in the patient's H&P, except as documented below: Hunter Cedeno MD Oct 04, 2020 11:45
--- NOTE | 2020-10-04 12:34 | Immediate Post-Op Evaluation ---
Immediate Post-Op Evalulation Immediate Post-Op Evalulation Procedure: EGD with EUS partial excision of carcinoid tumor Date of Evaluation: Oct 04, 2020 Time of Evaluation: 12:33 IV Fluids: 500 Blood Products: none Estimated Blood Loss: min Urinary Output: none Blood Pressure Systolic: 138 Blood Pressure Diastolic: 76 Pulse Rate: 68 Respiratory Rate: 20 O2 Sat by Pulse Oximetry: 99 Temperature (Fahrenheit): 97.6 Pain Score (1-10): 1 Nausea: No Vomiting: No Complications none Patient Status: reacts, patent, none Hydration Status: adequate Nathen House MD Oct 04, 2020 12:34
--- NOTE | 2020-10-04 12:44 | 48 Hour Post Anesthesia Eval ---
Post Anesthesia Evaluation Procedure: EGD with EUS, partial excision of carcinoid tumor Date of Evaluation: Oct 04, 2020 Time of Evaluation: 12:43 Blood Pressure Systolic: 138 0: 76 Pulse Rate: 68 Respiratory Rate: 18 Temperature (Fahrenheit): 97.6 O2 Sat by Pulse Oximetry: 98 Nausea: No Vomiting: No Pain Intensity: 1 Hydration Status: adequate Cardiopulmonary Status: stable Mental Status/LOC: patient returned to baseline Follow-up Care/Observations: n/a Post-Anesthesia Complications: none Follow-up care needed: ready to discharge Nathen House MD Oct 04, 2020 12:44
--- NOTE | 2020-10-04 13:06 | Endoscopy Procedure Note ---
Endoscopy Procedure Note General Indication for Procedure: gastric carcinoids Procedures Performed: EGD, other - EUS Operative Findings/Diagnosis: same Specimen: yes Pt Tolerated Procedure Well: Yes Estimated Blood Loss: none Anesthesia Anesthesiologist: ricco Anesthesia: MAC Inserted Devices Implant(s) used?: No GI Core Measures 50 yrs or older w/o bx or poly: Not Applicable 10yrs. F/U recommended: Not Applicable Hunter Cedeno MD Oct 04, 2020 13:06
--- NOTE | 2020-10-04 17:29 | Procedure Note ---
DATE OF PROCEDURE: 10/04/2020 SURGEON: Hunter Cedeno MD. PROCEDURE: Upper endoscopy with biopsy and snare polypectomy and also endoscopic ultrasound for gastric carcinoid. REASON FOR PROCEDURE: The procedure, risks, benefits, and possible consequences, including hemorrhage, aspiration, perforation and infection, and alternative treatments, were explained to the patient/legal guardian by Dr. Hunter Cedeno and the patient/legal guardian understood and accepted these risks. PROCEDURE IN DETAIL: After informed consent was obtained and the patient was adequately sedated, EUS radial scope was introduced. We had a hard time looking and finding the lesion with the radial scope. Most probably because the lesion was very close to the GE junction and we could not see with the EUS very easily. At this time, we switched to the upper scope. We found the lesion below the GE junction about few centimeters below. This was seen on the retroflexion. We tried to do polypectomy by lifting with using a normal saline, which was not very successful. We used the snare multiple times to try to grab the pieces of it and do a snare polypectomy, we then grab it very well. At this point, we decided to do a hot biopsy technique to remove some and then used the tip of the snare to burn the rest and also tattooed the area for future references. SUMMARY OF FINDINGS: Gastric carcinoid, unable to proceed with EUS, status post partial polypectomy, biopsy, cauterization, and tattooing. RECOMMENDATIONS: Follow pathology. We recommend repeat endoscopy in three months. Hunter Cedeno M.D. DR: AMANUEL JOB#: [id number] CC:
== END | disposition home or self-care (01) ==
LOC: GAS 09:56
DX: D3A.092 Benign carcinoid tumor of the stomach (principal); Z88.8 Allergy status to other drugs, medicaments and biological substances; Z79.899 Other long term (current) drug therapy; I11.9 Hypertensive heart disease without heart failure; I25.10 Atherosclerotic heart disease of native coronary artery without angina pectoris; K21.9 Gastro-esophageal reflux disease without esophagitis; Z85.46 Personal history of malignant neoplasm of prostate; E11.9 Type 2 diabetes mellitus without complications; M19.90 Unspecified osteoarthritis, unspecified site; E66.9 Obesity, unspecified; Z87.891 Personal history of nicotine dependence; Z68.30 Body mass index [BMI] 30.0-30.9, adult
CPT/HCPCS: 36415; 43250; 43251; 85025; J3010

== ENCOUNTER 2020-10-30 09:17 | Outpatient (CLI) | payer MEDICARE, OTHER ==
[~2020-10-30 09:17] MED LIST changes: -fentaNYL 100 mcg/2 mL IV ONE
--- NOTE | 2020-10-30 11:30 | General Progress Note ---
Subjective ROS Limited/Unobtainable: Yes Allergies: Coded Allergies: SIMVASTATIN (Verified Allergy, Unknown, 09/18/20) Objective General Appearance: alert EENT: PERRL/EOMI Neck: supple Cardiovascular: normal rate Respiratory/Chest: decreased breath sounds Abdomen: normal bowel sounds, non tender, soft Extremities: non-tender Assessment/Plan Assessment/Plan: gastric small carcinoid tumor second biopsy negative! plan repeat EGd in 3 months Hunter Cedeno MD Oct 30, 2020 11:30
== END 2020-10-30 11:17 | disposition home or self-care (01) ==
LOC: PAN 09:17
DX: D3A.092 Benign carcinoid tumor of the stomach (principal); Z88.8 Allergy status to other drugs, medicaments and biological substances
CPT/HCPCS: 99212